=== PATIENT | female | born 1955 | race African-American/Black ===

== ENCOUNTER 2016-05-12 11:24 | Emergency (ER) | payer OTHER ==
[2016-05-12] MEDS ORDERED: Lidocaine 2% VISCOUS* 15 ML UDC PO ONE (12:06)
[2016-05-12 13:16] VITALS: BP 133/83
--- NOTE | 2016-05-13 08:07 | ED ---
Eugene Mckeon Adam, scribed for Darien Ribera MD on 05/12/16 at 1224 . Throat Pain/Nasal Congestion - HPI Summary HPI Summary: 60 year old female arrived to [facility] complaining of a foreign object (mint) stuck in her throat this morning. She has since been able to keep down fluids and medications, and reports a general discomfort in her throat. She has not experienced something like this before, and has not previously been scoped. She is a former smoker, and regularly sees Dr. Pichardo (GI) for gastritis. - History of Current Complaint Chief Complaint: EDForeignBodyEsophag Time Seen by Provider: 05/12/16 11:57 Hx Obtained From: Patient Onset/Duration: Still Present Severity: Moderate Cough: None - Allergies/Home Medications Allergies/Adverse Reactions: Allergies Allergy/AdvReac Type Severity Reaction Status Date / Time Sulfa Antibiotics Allergy Vomiting Verified 02/27/16 12:44 ENVIRONMENTAL Allergy SINUS Uncoded 02/27/16 12:44 SYMPTOMS Home Medications: Home Medications QUEtiapine TAB* [SEROquel TAB*] 50 mg PO BEDTIME 05/12/16 [History Confirmed ] celeCOXIB CAP* [CeleBREX CAP*] 100 mg PO BID 05/12/16 [History Confirmed ] PMH/Surg Hx/FS Hx/Imm Hx Endocrine/Hematology History: Reports: Hx Anemia Denies: Hx Diabetes Cardiovascular History: Reports: Hx Angina Denies: Hx Congestive Heart Failure, Hx Coronary Artery Disease, Hx Hypercholesterolemia, Hx Hypertension, Hx Myocardial Infarction, Hx Pacemaker/ ICD, Hx Valvular Heart Disease Respiratory History: Denies: Hx Asthma, Hx Chronic Obstructive Pulmonary Disease (COPD) GI History: Reports: Hx Gastroesophageal Reflux Disease, Hx Ulcer, Other GI Disorders - GASTRITIS- TAKES MAALOX FOR GASTRITIS History: Denies: Hx Renal Disease Musculoskeletal History: Reports: Hx Arthritis - HANDS AND FEET Sensory History: Reports: Hx Contacts or Glasses - GLASSES Denies: Hx Hearing Aid Opthamlomology History: Reports: Hx Contacts or Glasses - GLASSES Psychiatric History: Reports: Hx Anxiety - NERVOUS AT TIMES, Hx Depression, Hx Schizophrenia Denies: Hx Eating Disorder, Hx Panic Disorder - Cancer History Cancer Type, Location and Year: PATRICIO FOSTER CONCERNED BUT BIOPSY NEGATIVE,PER PT. Hx Chemotherapy: No Hx Radiation Therapy: No - Surgical History Surgery Procedure, Year, and Place: biopsy on breast-DR. DIAZ'S OFFICE, D&C- [facility] [place] Hx Anesthesia Reactions: No - Immunization History Date of Tetanus Vaccine: unknown Date of Influenza Vaccine: unknown Infectious Disease History: Denies: History Other Infectious Disease, Traveled Outside the [place] in Last 30 Days - Family History Known Family History: Positive: Seizure Disorder, Other - Sister has CA. Family History: Bipolar, schizophrenia, depression - Social History Alcohol Use: None Hx Substance Use: No Substance Use Type: Reports: None Hx Tobacco Use: No Smoking Status (MU): Former Smoker Amount Used/How Often: 4-5 CIGARETTES PER DAY X UNKNOWN AMOUNT OF YEARS Have You Smoked in the Last Year: No Review of Systems Negative: Fever, Chills Negative: Erythema Positive: Other - discomfort in throat due to foreign object. Negative: Sore Throat Negative: Chest Pain Negative: Shortness Of Breath, Cough Negative: Abdominal Pain, Vomiting, Nausea Negative: dysuria, hematuria Negative: Rash Neurological: Other - no dizziness All Other Systems Reviewed And Are Negative: Yes Physical Exam - Summary Physical Exam Summary: Constitutional: Well-developed, Well-nourished, Alert. (-) Distressed Skin: Warm, Dry HENT: Normocephalic; Atraumatic Eyes: Conjunctiva normal Neck: Musculoskeletal ROM normal neck. (-) JVD, (-) Stridor, (-) Tracheal deviation Cardio: Rhythm regular, rate normal, Heart sounds normal; Intact distal pulses; The pedal pulses are 2+ and symmetric. Radial pulses are 2+ and symmetric. (-) Murmur Pulmonary/Chest wall: Effort normal. (-) Respiratory distress, (-) Wheezes, (-) Rales Abd: Soft, (-) Tenderness, (-) Distension, (-) Guarding, (-) Rebound Musculoskeletal: (-) Edema Lymph: (-) Cervical adenopathy Neuro: Alert, Oriented x3 Psych: Mood and affect Normal Triage Information Reviewed: Yes Vital Signs On Initial Exam: Initial Vitals Temp Pulse Resp BP Pulse Ox 98.6 F 95 18 150/83 99 05/12/16 11:25 05/12/16 11:25 05/12/16 11:25 05/12/16 11:25 05/12/16 11:25 Vital Signs Reviewed: Yes Diagnostics - Vital Signs Vital Signs Temp Pulse Resp BP Pulse Ox 05/12/16 11:25 98.6 F 95 18 150/83 99 - Laboratory Lab Statement: Any lab studies that have been ordered have been reviewed, and results considered in the medical decision making process. Re-Evaluation - Re-Evaluation First Eval Re-Evaluation Time: 12:30 - Pt tolerated PO intake. Change: Improved EENT Course/Dx - Diagnoses Provider Diagnoses: Choking episode Discharge - Discharge Plan Condition: Stable Disposition: HOME Patient Education Materials: Esophageal Foreign Body (ED) Referrals: Jose Abarca MD [Medical Doctor] - Additional Instructions: Follow up with Dr. Abarca (Gastro) in 2 days. The documentation as recorded by the Eugene mueller Adam accurately reflects the service I personally performed and the decisions made by , Darien Ribera MD.
== END 2016-05-12 13:14 | disposition home or self-care (01) ==
LOC: ED 11:24
DX: R09.89 Other specified symptoms and signs involving the circulatory and respiratory systems (principal); Z87.891 Personal history of nicotine dependence; Z88.2 Allergy status to sulfonamides; D64.9 Anemia, unspecified; K21.9 Gastro-esophageal reflux disease without esophagitis
CPT/HCPCS: 99282

== ENCOUNTER 2016-08-17 12:04 | Emergency (ER) | payer OTHER ==
[2016-08-17 13:42] LABS: Hematocrit 38 % (35-47); Hemoglobin 11.6 g/dl (12.0-16.0); Mean Corpuscular HGB Conc 31 g/dl (31-36); Mean Corpuscular Hemoglobin 22 pg (27-31); Mean Platelet Volume 9 um3 (7.4-10.4); Red Cell Distribution Width 16 % (10.5-15); White Blood Count 6.3 10^3/ul (3.5-10.8)
[2016-08-17 13:43] LABS: Comments Flag Yes; Mean Corpuscular Volume 71 fL (80-97)
[2016-08-17 13:54] LABS: Urine Bilirubin Negative (Negative); Urine Glucose Negative (Negative); Urine Nitrite Negative (Negative)
[2016-08-17 13:57] LABS: BUN/Creatinine Ratio 10.3 (8-20); Calcium 9.5 mg/dL (8.6-10.3); EGFR African American 96.2 (>60); EGFR Non-African American 74.8 (>60); Potassium 4.1 mmol/L (3.5-5.0); Total Bilirubin 0.3 mg/dL (0.2-1.0)
[2016-08-17 14:25] LABS: Benzodiazepine Urine Screen None Detected (None Detect)
[2016-08-17 15:31] VITALS: BP 140/74
--- NOTE | 2016-08-17 18:18 | ED ---
I, Oh,Soohyun, scribed for Sal David MD on 08/17/16 at 1248 . Psychiatric Complaint - HPI Summary HPI Summary: This 61 y/o female presents to ED via [facility] from [place] [facility] for "feeling out of it" since today. 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 She attribute recent start of Klonopin as the reason for her chief complaint. Positive diffuse DOMÍNGUEZ and unspecified "trouble with urination". Good appetite. PMHx includes anxiety/depression, PUD, and insomnia. No known HTN in PMHx. Pt denies any recent EtOH consumption. - History Of Current Complaint Chief Complaint: EDGeneral Time Seen by Provider: 08/17/16 12:40 Hx Obtained From: Patient, Medical Records ?: No Onset/Duration: Sudden Onset Timing: Constant - Allergies/Home Medications Allergies/Adverse Reactions: Allergies Allergy/AdvReac Type Severity Reaction Status Date / Time Sulfa Antibiotics Allergy Vomiting Verified 02/27/16 12:44 ENVIRONMENTAL Allergy SINUS Uncoded 02/27/16 12:44 SYMPTOMS PMH/Surg Hx/FS Hx/Imm Hx Endocrine/Hematology History: Reports: Hx Anemia Denies: Hx Diabetes Cardiovascular History: Reports: Hx Angina Denies: Hx Congestive Heart Failure, Hx Coronary Artery Disease, Hx Hypercholesterolemia, Hx Hypertension, Hx Myocardial Infarction, Hx Pacemaker/ ICD, Hx Valvular Heart Disease Respiratory History: Denies: Hx Asthma, Hx Chronic Obstructive Pulmonary Disease (COPD) GI History: Reports: Hx Gastroesophageal Reflux Disease, Hx Ulcer, Other GI Disorders - GASTRITIS- TAKES MAALOX FOR GASTRITIS History: Denies: Hx Renal Disease Musculoskeletal History: Reports: Hx Arthritis - HANDS AND FEET Sensory History: Reports: Hx Contacts or Glasses - GLASSES Denies: Hx Hearing Aid Opthamlomology History: Reports: Hx Contacts or Glasses - GLASSES Psychiatric History: Reports: Hx Anxiety - NERVOUS AT TIMES, Hx Depression, Hx Schizophrenia Denies: Hx Eating Disorder, Hx Panic Disorder - Cancer History Cancer Type, Location and Year: PATRICIO DIAZ CONCERNED BUT BIOPSY NEGATIVE,PER PT. Hx Chemotherapy: No Hx Radiation Therapy: No - Surgical History Surgery Procedure, Year, and Place: biopsy on breast-DR. DIAZ'S OFFICE, D&C- [facility] [place] Hx Anesthesia Reactions: No - Immunization History Date of Tetanus Vaccine: unknown Date of Influenza Vaccine: unknown Infectious Disease History: Denies: History Other Infectious Disease, Traveled Outside the US in Last 30 Days - Family History Known Family History: Positive: Seizure Disorder, Other - Sister has CA. Family History: Bipolar, schizophrenia, depression - Social History Alcohol Use: None Hx Substance Use: No Substance Use Type: Reports: None Hx Tobacco Use: No Smoking Status (MU): Former Smoker Amount Used/How Often: 4-5 CIGARETTES PER DAY X UNKNOWN AMOUNT OF YEARS Have You Smoked in the Last Year: No Review of Systems Positive: Other - "feeling out of it". Negative: Fever Negative: Other - te Positive: dysuria - unspecified "trouble with urination" Positive: Headache - diffuse All Other Systems Reviewed And Are Negative: Yes Physical Exam - Summary Physical Exam Summary: The patient is well-nourished in no acute distress and in no acute pain. The skin is warm and dry and skin color reflects adequate perfusion. HEENT: The head is normocephalic and atraumatic. The pupils are equal and reactive. The conjunctivae are clear and without drainage. Nares are patent and without drainage. Mouth reveals moist mucous membranes and the throat is without erythema and exudate. The external ears are intact. The ear canals are patent and without drainage. The tympanic membranes are intact. Neck is supple with full range of motion and non-tender. There are no carotid bruits. There is no neck vein distension. Respiratory: Chest is non-tender. Lungs are clear to auscultation and breath sounds are symmetrical and equal. Cardiovascular: Hear is regular rate and rhythm. There is no murmur or rub auscultated. There is no peripheral edema and pulses are symmetrical and equal. Abdomen: The abdomen is soft and non-tender. There are normal bowel sounds heard in all four quadrants and there is no organomegaly palpated. Good bowel sound. Musculoskeletal: There is no back pain noted. Extremities are non-tender with full range of motion. There is good capillary refill. There is no peripheral edema or calf tenderness elicited. Neurological: Patient is alert and oriented to person, place and time. The patient has symmetrical motor strength in all four extremities. Cranial nerves are grossly intact. Deep tendon reflexes are symmetrical and equal in all four extremities. Psychiatric: The patient has an appropriate affect and does not exhibit any anxiety or depression. Triage Information Reviewed: Yes Vital Signs On Initial Exam: Initial Vitals Temp Pulse Resp BP Pulse Ox 97.7 F 84 15 155/83 100 08/17/16 12:10 08/17/16 12:10 08/17/16 12:10 08/17/16 12:10 08/17/16 12:10 Vital Signs Reviewed: Yes - [place] Coma Scale Coma Scale Total: 15 Diagnostics - Vital Signs Vital Signs Temp Pulse Resp BP Pulse Ox 08/17/16 12:10 97.7 F 84 15 155/83 100 - Laboratory Lab Results: Lab Results 08/17/16 08/17/16 08/17/16 Range/Units 13:25 13:25 13:25 WBC 6.3 (3.5-10.8) 10^3/ul RBC 5.30 (4.0-5.4) 10^6/ul Hgb 11.6 L (12.0-16.0) g/dl Hct 38 (35-47) % MCV 71 L (80-97) fL MCH 22 L (27-31) pg MCHC 31 (31-36) g/dl RDW 16 H (10.5-15) % Plt Count 225 (150-450) 10^3/ul MPV 9 (7.4-10.4) um3 Neut % (Auto) 72.2 (38-83) % Lymph % (Auto) 20.5 L (25-47) % Dougherty % (Auto) 3.8 (1-9) % Eos % (Auto) 2.0 (0-6) % Baso % (Auto) 1.5 (0-2) % Absolute Neuts (auto) 4.5 (1.5-7.7) 10^3/ul Absolute Lymphs (auto) 1.3 (1.0-4.8) 10^3/ul Absolute Monos (auto) 0.2 (0-0.8) 10^3/ul Absolute Eos (auto) 0.1 (0-0.6) 10^3/ul Absolute Basos (auto) 0.1 (0-0.2) 10^3/ul Absolute Nucleated RBC 0.01 10^3/ul Nucleated RBC % 0.1 Sodium 140 (133-145) mmol/L Potassium 4.1 (3.5-5.0) mmol/L Chloride 104 (101-111) mmol/L Carbon Dioxide 30 (22-32) mmol/L Anion Gap 6 (2-11) mmol/L BUN 8 (6-24) mg/dL Creatinine 0.78 (0.51-0.95) mg/dL Est GFR ( Amer) 96.2 (>60) Est GFR (Non-Af Amer) 74.8 (>60) BUN/Creatinine Ratio 10.3 (8-20) Glucose 89 (70-100) mg/dL Lactic Acid (0.5-2.0) mmol/L Calcium 9.5 (8.6-10.3) mg/dL Total Bilirubin 0.30 (0.2-1.0) mg/dL AST 12 L (13-39) U/L ALT 13 (7-52) U/L Alkaline Phosphatase 98 (34-104) U/L Troponin I 0.00 (<0.04) ng/mL Total Protein 8.0 (6.4-8.9) g/dL Albumin 4.0 (3.2-5.2) g/dL Globulin 4.0 (2-4) g/dL Albumin/Globulin Ratio 1.0 (1-3) Urine Color Straw Urine Appearance Clear Urine pH 8.0 (5-9) Ur Specific [place] 1.005 L (1.010-1.030) Urine Protein Negative (Negative) Urine Ketones Negative (Negative) Urine Blood Negative (Negative) Urine Nitrate Negative (Negative) Urine Bilirubin Negative (Negative) Urine Urobilinogen Negative (Negative) Ur Leukocyte Esterase Negative (Negative) Urine Glucose Negative (Negative) Urine Opiates Screen (None Detect) Ur Barbiturates Screen (None Detect) Ur Phencyclidine Scrn (None Detect) Ur Amphetamines Screen (None Detect) U Benzodiazepines Scrn (None Detect) Urine Cocaine Screen (None Detect) U Cannabinoids Screen (None Detect) 08/17/16 08/17/16 Range/Units 13:25 13:25 WBC (3.5-10.8) 10^3/ul RBC (4.0-5.4) 10^6/ul Hgb (12.0-16.0) g/dl Hct (35-47) % MCV (80-97) fL MCH (27-31) pg MCHC (31-36) g/dl RDW (10.5-15) % Plt Count (150-450) 10^3/ul MPV (7.4-10.4) um3 Neut % (Auto) (38-83) % Lymph % (Auto) (25-47) % Dougherty % (Auto) (1-9) % Eos % (Auto) (0-6) % Baso % (Auto) (0-2) % Absolute Neuts (auto) (1.5-7.7) 10^3/ul Absolute Lymphs (auto) (1.0-4.8) 10^3/ul Absolute Monos (auto) (0-0.8) 10^3/ul Absolute Eos (auto) (0-0.6) 10^3/ul Absolute Basos (auto) (0-0.2) 10^3/ul Absolute Nucleated RBC 10^3/ul Nucleated RBC % Sodium (133-145) mmol/L Potassium (3.5-5.0) mmol/L Chloride (101-111) mmol/L Carbon Dioxide (22-32) mmol/L Anion Gap (2-11) mmol/L BUN (6-24) mg/dL Creatinine (0.51-0.95) mg/dL Est GFR ( Amer) (>60) Est GFR (Non-Af Amer) (>60) BUN/Creatinine Ratio (8-20) Glucose (70-100) mg/dL Lactic Acid 0.8 (0.5-2.0) mmol/L Calcium (8.6-10.3) mg/dL Total Bilirubin (0.2-1.0) mg/dL AST (13-39) U/L ALT (7-52) U/L Alkaline Phosphatase (34-104) U/L Troponin I (<0.04) ng/mL Total Protein (6.4-8.9) g/dL Albumin (3.2-5.2) g/dL Globulin (2-4) g/dL Albumin/Globulin Ratio (1-3) Urine Color Urine Appearance Urine pH (5-9) Ur Specific [place] (1.010-1.030) Urine Protein (Negative) Urine Ketones (Negative) Urine Blood (Negative) Urine Nitrate (Negative) Urine Bilirubin (Negative) Urine Urobilinogen (Negative) Ur Leukocyte Esterase (Negative) Urine Glucose (Negative) Urine Opiates Screen None detected (None Detect) Ur Barbiturates Screen None detected (None Detect) Ur Phencyclidine Scrn None detected (None Detect) Ur Amphetamines Screen None detected (None Detect) U Benzodiazepines Scrn None detected (None Detect) Urine Cocaine Screen None detected (None Detect) U Cannabinoids Screen None detected (None Detect) Result Diagrams: 08/17/16 13:25 08/17/16 13:25 Lab Statement: Any lab studies that have been ordered have been reviewed, and results considered in the medical decision making process. - EKG 1328 Cardiac Rate: NL - 67 bpm EKG Rhythm: Sinus Rhythm Course/Dx - Differential Dx/Clinical Impression Provider Diagnosis: Elevated blood pressure reading Discharge - Discharge Plan Condition: Stable Disposition: HOME Patient Education Materials: Hypertension (ED) Referrals: [facility] [place] PHYSICIAN REFERRAL [Outside] - 2 Days The documentation as recorded by the Issa mueller Soohyun accurately reflects the service I personally performed and the decisions made by Frankie mg Drew, MD.
== END 2016-08-17 15:30 | disposition home or self-care (01) ==
LOC: ED 12:04
DX: R03.0 Elevated blood-pressure reading, without diagnosis of hypertension (principal); R30.0 Dysuria; R51 Headache; Z87.891 Personal history of nicotine dependence
CPT/HCPCS: 36415; 80053; 80307; 81003; 83605; 84484; 85025; 93005; 99282

== ENCOUNTER 2017-05-17 08:58 | Emergency (ER) | payer OTHER ==
[2017-05-17] MEDS ORDERED: Docusate CAP* 100 MG PO ONE (09:19)
[2017-05-17] MEDS ORDERED: Hydrocortisone SUPP* 25 MG SUPP (2.5%) PR ONE (09:20)
[2017-05-17 09:44] LABS: Hematocrit 36 % (35-47); Mean Corpuscular HGB Conc 31 g/dl (31-36); Mean Corpuscular Hemoglobin 22 pg (27-31); Mean Corpuscular Volume 71 fL (80-97); Mean Platelet Volume 9 um3 (7.4-10.4); Platelet Count 235 10^3/ul (150-450); Red Blood Count 5.04 10^6/ul (4.0-5.4); Red Cell Distribution Width 15 % (10.5-15); White Blood Count 4.8 10^3/ul (3.5-10.8)
[2017-05-17 09:55] LABS: EGFR Non-African American 74.8 (>60)
[2017-05-17 10:00] LABS: ABS Basophils 0 10^3/ul (0-0.2); ABS Eosinophils 0.2 10^3/ul (0-0.6); ABS Lymphocytes 1.2 10^3/ul (1.0-4.8); ABS Monocytes 0.3 10^3/ul (0-0.8); ABS Neutrophils 3.1 10^3/ul (1.5-7.7); ABS Nucleated RBC 0 10^3/ul; Eosinophil % 4.9 % (0-6); Lymphocyte % 25.3 % (25-47); Nucleated Red Blood Cells % 0.1
[2017-05-17 10:04] LABS: Urine Appearance Clear; Urine Blood Negative (Negative); Urine Color Yellow; Urine Ketones Negative (Negative); Urine Protein Negative (Negative); Urine Specific Gravity 1.002 (1.010-1.030); Urine Urobilinogen Negative (Negative)
[2017-05-17] MEDS ORDERED: Hydrocortisone 1% CREAM* 30 GM TUBE TOPICAL ONE (11:34)
[2017-05-17 12:16] VITALS: BP 157/85
--- NOTE | 2017-05-17 20:51 | ED ---
Joshua Mckeon Natalie, scribed for Veronika Knight MD on 05/17/17 at 0937 . GI/ HPI - HPI Summary HPI Summary: The patient is a 61 y/o F BIBA to ED from [place] c/o pain from hemorrhoids for a few days. She has been constipated since this morning. She usually uses a cream on the inside of rectum, but didnt have an updated prescription available. The pain is rated 8/10. She has not been vomiting or had a fever, but has diffuse abd pain and states her whole body is itchy. When asked, the patient denies SI or HI, and she is not hearing voices. She has FHx of cancer. No surgical history. - History of Current Complaint Chief Complaint: EDRashSkinAbscess Stated Complaint: RASH Hx Obtained From: Patient Onset/Duration: Started Hours Ago - starting this morning, Still Present Timing: Constant Severity: Moderate Current Severity: Moderate Pain Intensity: 8 Location of Pain: Diffuse - abd, Rectal Associated Signs and Symptoms: Positive: Rectal Pain, External Hemorrhoid, Constipation, Abdominal Pain. Negative: Vomiting, Fever - Additional Pertinent History Primary Care Physician: [id number] - Allergy/Home Medications Allergies/Adverse Reactions: Allergies Allergy/AdvReac Type Severity Reaction Status Date / Time Sulfa (Sulfonamide Allergy Vomiting Verified 05/17/17 11:12 Antibiotics) ENVIRONMENTAL Allergy SINUS Uncoded 02/27/16 12:44 SYMPTOMS Home Medications: Home Medications Acetaminophen [Acetaminophen ER] 650 mg PO Q8H PRN 05/17/17 [History Confirmed 05/17/17] Acetaminophen [Acetaminophen Extra Strength] 1,000 mg PO Q4H PRN 05/17/17 [ History Confirmed 05/17/17] Gabapentin CAP(*) [Neurontin 100 mg CAP(*)] 100 mg PO BID 05/17/17 [History Confirmed 05/17/17] Ibuprofen TAB* [Motrin TAB* 600 MG] 600 mg PO Q6H PRN 05/17/17 [History Confirmed 05/17/17] Lactulose* 15 ml PO DAILY PRN 05/17/17 [History Confirmed 05/17/17] Loperamide CAP* [Imodium CAP*] 2 mg PO Q4H PRN 05/17/17 [History Confirmed 05/17] Lurasidone(*) [Latuda] 40 mg PO BEDTIME 05/17/17 [History Confirmed 05/17/17] Mag Hydrox/Aluminum Hyd/Simeth [Maalox Maximum Strength Susp] 10 ml PO Q4H PRN 05/17/17 [History Confirmed 05/17/17] clonazePAM TAB(*) [KlonoPIN TAB(*)] 0.5 mg PO .AFTER LUNCH 05/17/17 [History Confirmed 05/17/17] hydrOXYzine HCL TAB* [Atarax 25 MG TAB*] 25 mg PO BEDTIME PRN 05/17/17 [History Confirmed 05/17/17] hydrOXYzine HCL TAB* [Atarax 25 MG TAB*] 25 mg PO QPM 05/17/17 [History Confirmed 05/17/17] PMH/Surg Hx/FS Hx/Imm Hx Previously Healthy: No Endocrine/Hematology History: Reports: Hx Anemia Denies: Hx Diabetes Cardiovascular History: Reports: Hx Angina Denies: Hx Congestive Heart Failure, Hx Coronary Artery Disease, Hx Hypercholesterolemia, Hx Hypertension, Hx Myocardial Infarction, Hx Pacemaker/ ICD, Hx Valvular Heart Disease Respiratory History: Denies: Hx Asthma, Hx Chronic Obstructive Pulmonary Disease (COPD) GI History: Reports: Hx Gastroesophageal Reflux Disease, Hx Ulcer, Other GI Disorders - GASTRITIS- TAKES MAALOX FOR GASTRITIS History: Denies: Hx Renal Disease Musculoskeletal History: Reports: Hx Arthritis - HANDS AND FEET Sensory History: Reports: Hx Contacts or Glasses - GLASSES Denies: Hx Hearing Aid Opthamlomology History: Reports: Hx Contacts or Glasses - GLASSES Psychiatric History: Reports: Hx Anxiety - NERVOUS AT TIMES, Hx Depression, Hx Schizophrenia Denies: Hx Eating Disorder, Hx Panic Disorder - Cancer History Cancer Type, Location and Year: PATRICIO DIAZ CONCERNED BUT BIOPSY NEGATIVE,PER PT. Hx Chemotherapy: No Hx Radiation Therapy: No - Surgical History Surgery Procedure, Year, and Place: biopsy on breast-DR. DIAZ'S OFFICE, [place] [facility] [place] Anesthesia Reactions: No - Immunization History Date of Tetanus Vaccine: unknown Date of Influenza Vaccine: unknown Infectious Disease History: No Infectious Disease History: Denies: History Other Infectious Disease, Traveled Outside the [place] in Last 30 Days - Family History Known Family History: Positive: Seizure Disorder, Other - Sister has CA. Family History: Bipolar, schizophrenia, depression - Social History Alcohol Use: None Hx Substance Use: No Substance Use Type: Reports: None Hx Tobacco Use: No Smoking Status (MU): Former Smoker Amount Used/How Often: 4-5 CIGARETTES PER DAY X UNKNOWN AMOUNT OF YEARS Have You Smoked in the Last Year: No Review of Systems Negative: Fever Positive: Abdominal Pain, Other - hemorrhoids. Negative: Vomiting All Other Systems Reviewed And Are Negative: Yes Physical Exam - Summary Physical Exam Summary: Appearance: Ill-appearing, moderate pain distress, Well-nourished, Wearing a wig Skin: Warm, color reflects adequate perfusion, No cellulitis Head: Normal Head/Face inspection Eyes: Conjunctiva clear ENT: Normal inspection Neck: Supple, no nodes, no JVD. Respiratory: Lungs clear, Normal breath sounds, no respiratory distress Cardio: RRR, No murmur, pulses normal, brisk capillary refill Abdomen: soft, nontender Bowel sounds: present Rectal exam: RN Buffy is witness in room while doing rectal exam. Excoriated moist rash between buttocks with external hemorrhoids, not thrombosed, not bleeding. Minimal stool in vault, not impacted, brown soft stool. Musculoskeletal: Strength Intact/ ROM intact. No calf tenderness. No edema. Neuro: Alert, muscle tone normal, facial symmetry, speech normal, sensory/motor intact Psychological: Normal Triage Information Reviewed: Yes Vital Signs On Initial Exam: Initial Vitals Temp Pulse Resp BP Pulse Ox 98.2 F 87 16 149/93 100 05/17/17 09:08 05/17/17 09:08 05/17/17 09:08 05/17/17 09:08 05/17/17 09:08 Vital Signs Reviewed: Yes Diagnostics - Vital Signs Vital Signs Temp Pulse Resp BP Pulse Ox 05/17/17 09:08 98.2 F 87 16 149/93 100 - Laboratory Result Diagrams: 05/17/17 09:30 05/17/17 09:30 Lab Statement: Any lab studies that have been ordered have been reviewed, and results considered in the medical decision making process. Re-Evaluation - Re-Evaluation First Eval Re-Evaluation Time: 11:14 Change: Unchanged Comment: The patient states she is still itching all over. GIGU Course/Dx - Course Course Of Treatment: Pt's medications reviewed during this visit. Allergies noted. In the ED, the patient was given Anusol Hc Supp and hydrocortisone 1% cream. At 11:22, I spoke with charge nurse Leslie and mental health collateral clerk and we established that it is not necessary for the patient to receive a mental health evaluation. The patient also does not need to be admitted. She is dx with hemorrhoids and dermatitis. She will be discharged back to [place]. Pt is agreeable with this plan. - Diagnoses Provider Diagnoses: Keratosis follicularis, Unspecified psychosis, Insomnia, Anxiety disorder, unspecified, Rash, Hemorrhoids, Dermatitis Discharge - Discharge Plan Condition: Stable Disposition: HOME Patient Education Materials: Hemorrhoids (ED), Dermatitis (ED) Referrals: Lorraine Vargas MD [Medical Doctor] - 2 Days Additional Instructions: We gave Anusol Hc Supp and colace 200mg while in the ER. We also gave hydrocortisone 1% cream to the itchy rash in your genital area. RETURN TO THE ER WITH ANY NEW OR WORSENING SYMPTOMS The documentation as recorded by the Joshua mueller Natalie accurately reflects the service I personally performed and the decisions made by me, Veronika Knight MD.
== END 2017-05-17 12:15 | disposition home or self-care (01) ==
LOC: ED 08:58
DX: L11.0 Acquired keratosis follicularis (principal); F29 Unspecified psychosis not due to a substance or known physiological condition; G47.00 Insomnia, unspecified; F41.9 Anxiety disorder, unspecified; R21 Rash and other nonspecific skin eruption; Z87.891 Personal history of nicotine dependence; Z88.2 Allergy status to sulfonamides
CPT/HCPCS: 36415; 80053; 80307; 80320; 80329; 81003; 82272; 82550; 84443; 85025; 99282; A9270-GY; G0480

== ENCOUNTER → 2018-07-01 10:55 | Emergency (ER) | payer OTHER ==
[~2018-07-01 10:55] MED LIST: HYDROcodone/ACETAMIN 5-325 MG* 1 TAB PO ONE; Ketorolac INJ* 30 MG/ML 1 ML VIAL IV PUSH ONE
--- NOTE | 2018-07-01 11:07 | ED ---
HPI Chest Pain - HPI Summary HPI Summary: A 62 y/o female brought in by [facility] ambulance from [place] presents to [facility] with a chief complaint of chest pain today. She describes her pain as a sharp pain. Breathing, movement, and palpation aggravates her pain. Lying down alleviates her pain. She also notes pain radiating to her abdomen. She rates her pain as a 7/10 in severity. She was given Maalox and Tylenol SLEEVE BASTER. - History of Current Complaint Time Seen by Provider: 07/01/18 10:57 Hx Obtained From: Patient, EMS Onset/Duration: Started Hours Ago, Still Present Timing: Constant, Lasting Hours Initial Severity: Severe Current Severity: Severe Pain Intensity: 7 Pain Scale Used: 0-10 Numeric Chest Pain Location: Diffuse Chest Pain Radiates: No Character: Sharp/Stabbing Aggravating Factor(s): Movement, Deep Breaths, Other: - palpation Alleviating Factor(s): Rest Associated Signs and Symptoms: Positive: Abdominal Pain. Negative: Fever - Additional Pertinent History Primary Care Physician: FABIOLA - Allergy/Home Medications Allergies/Adverse Reactions: Allergies Allergy/AdvReac Type Severity Reaction Status Date / Time Sulfa (Sulfonamide Allergy Vomiting Verified 07/01/18 12:45 Antibiotics) ENVIRONMENTAL Allergy SINUS Uncoded 07/01/18 12:45 SYMPTOMS Home Medications: Home Medications Acetaminophen TAB* [Tylenol TAB*] 650 mg PO Q4H PRN 07/01/18 [History Confirmed 07/01/18] Multivit-Min/Iron/Folic/Lutein [Centrum Silver Women Tablet] 1 tab PO DAILY [History Confirmed 07/01/18] PMH/Surg Hx/FS Hx/Imm Hx Endocrine/Hematology History: Reports: Hx Anemia Denies: Hx Diabetes Cardiovascular History: Reports: Hx Angina Denies: Hx Congestive Heart Failure, Hx Coronary Artery Disease, Hx Hypercholesterolemia, Hx Hypertension, Hx Myocardial Infarction, Hx Pacemaker/ ICD, Hx Valvular Heart Disease Respiratory History: Denies: Hx Asthma, Hx Chronic Obstructive Pulmonary Disease (COPD) GI History: Reports: Hx Gastroesophageal Reflux Disease, Hx Ulcer, Other GI Disorders - GASTRITIS- TAKES MAALOX FOR GASTRITIS History: Denies: Hx Renal Disease Musculoskeletal History: Reports: Hx Arthritis - HANDS AND FEET Sensory History: Reports: Hx Contacts or Glasses - GLASSES Denies: Hx Hearing Aid Opthamlomology History: Reports: Hx Contacts or Glasses - GLASSES Psychiatric History: Reports: Hx Anxiety, Hx Depression, Hx Schizophrenia Denies: Hx Eating Disorder, Hx Panic Disorder - Cancer History Cancer Type, Location and Year: PATRICIO DIAZ CONCERNED BUT BIOPSY NEGATIVE,PER PT. Hx Chemotherapy: No Hx Radiation Therapy: No - Surgical History Surgery Procedure, Year, and Place: biopsy on breast-DR. DIAZ'S OFFICE, D&C- [facility] – [place] Hx Anesthesia Reactions: No - Immunization History Date of Tetanus Vaccine: unknown Date of Influenza Vaccine: unknown Infectious Disease History: Denies: History Other Infectious Disease - Family History Known Family History: Positive: Seizure Disorder, Other - Sister has CA. Family History: Bipolar, schizophrenia, depression - Social History Alcohol Use: None Hx Substance Use: No Substance Use Type: Reports: None Hx Tobacco Use: No Smoking Status (MU): Former Smoker Amount Used/How Often: 4-5 CIGARETTES PER DAY X UNKNOWN AMOUNT OF YEARS Have You Smoked in the Last Year: No Review of Systems Negative: Fever Positive: Chest Pain Positive: Abdominal Pain All Other Systems Reviewed And Are Negative: Yes Physical Exam - Summary Physical Exam Summary: Appearance: The patient is well-nourished in no acute distress and in no acute pain. Skin: The skin is warm and dry and skin color reflects adequate perfusion. HEENT: The head is normocephalic and atraumatic. The pupils are equal and reactive. The conjunctivae are clear and without drainage. Nares are patent and without drainage. Mouth reveals moist mucous membranes and the throat is without erythema and exudate. The external ears are intact. The ear canals are patent and without drainage. The tympanic membranes are intact. Neck: The neck is supple with full range of motion and non-tender. There are no carotid bruits. There is no neck vein distension. Respiratory: Tender anterior chest wall and mid sternum. Lungs are clear to auscultation and breath sounds are symmetrical and equal. Cardiovascular: Heart is regular rate and rhythm. There is no murmur or rub auscultated. There is no peripheral edema and pulses are symmetrical and equal. Abdomen: The abdomen is soft and non-tender. There are normal bowel sounds heard in all four quadrants and there is no organomegaly palpated. Musculoskeletal: There is no back tenderness noted. Extremities are non-tender with full range of motion. There is good capillary refill. There is no peripheral edema or calf tenderness elicited. Neurological: Patient is alert and oriented to person, place and time. The patient has symmetrical motor strength in all four extremities. Cranial nerves are grossly intact. Deep tendon reflexes are symmetrical and equal in all four extremities. Psychiatric: The patient has an appropriate affect and does not exhibit any anxiety or depression. Triage Information Reviewed: Yes Vital Signs Reviewed: Yes Diagnostics - Laboratory Result Diagrams: 07/01/18 11:26 07/01/18 11:26 Lab Statement: Any lab studies that have been ordered have been reviewed, and results considered in the medical decision making process. - Radiology CXR Radiology Interpretation Completed By: Radiologist Summary of Radiographic Findings: NO ACTIVE CARDIOPULMONARY DISEASE IS NOTED. ED physician has reviewed this imaging report. - EKG 11:00 Cardiac Rate: NL - 78 bpm EKG Rhythm: Sinus Rhythm Summary of EKG Findings: Normal sinus rhythm at 78 bpm, normal ST, no ectopy, no STEMI Re-Evaluation - Re-Evaluation First Eval Re-Evaluation Time: 17:37 Change: Improved Comment: Patient is feeling better and ready for discharge. Chest Pain Course/Dx - Course Course Of Treatment: Ms. Rao presented with a chief complaint of chest pain which is been going on for at least a day. It hurts to breathe or to move and as it turns out to palpate her sternal area. She was nontoxic in appearance with stable vitals on arrival. EKG chest x-ray and labs including a delayed troponin are all within normal limits and she improved some with ketorolac and more so with [place]. I will discharge her back to follow-up with her PCP; I don' t think anything dangerous is happening at this point. - Diagnoses Provider Diagnoses: Chest pain Discharge - Sign-Out/Discharge Documenting (check all that apply): Patient Departure - DC Patient Received Moderate/Deep Sedation with Procedure: No - Discharge Plan Condition: Stable Disposition: HOME Patient Education Materials: Chest Pain (DC) Referrals: Fatou Coker NP [Primary Care Provider] - (2-3 days) Additional Instructions: Return to the ED if you experience any new or worsening symptoms. - Billing Disposition and Condition Condition: STABLE Disposition: Home - Attestation Statements Document Initiated by Scribe: Yes Documenting Scribe: Pee Vo Provider For Whom Scribe is Documenting (Include Credential): Chalino Trejo MD Scribe Attestation: I, Pee Vo, scribed for Chalino Trejo MD on 07/01/18 at 1742. Scribe Documentation Reviewed: Yes Provider Attestation: The documentation as recorded by the scribe, Pee Vo accurately reflects the service I personally performed and the decisions made by me, Chalino Trejo MD Status of Scribe Document: Viewed
[2018-07-01 11:42] LABS: ABS Basophils 0 10^3/ul (0-0.2); ABS Eosinophils 0.3 10^3/ul (0-0.6); ABS Lymphocytes 1.9 10^3/ul (1.0-4.8); ABS Monocytes 0.4 10^3/ul (0-0.8); ABS Neutrophils 3.4 10^3/ul (1.5-7.7); ABS Nucleated RBC 0 10^3/ul; Eosinophil % 5.2 %; Hematocrit 38 % (33-41); Hemoglobin 11.8 g/dL (12.0-16.0); Lymphocyte % 31.7 %; Mean Corpuscular HGB Conc 31 g/dL (31-36); Mean Corpuscular Hemoglobin 22 pg (27-31); Mean Corpuscular Volume 70 fL (80-97); Mean Platelet Volume 9.1 fL (7.4-10.4); Nucleated Red Blood Cells % 0.1; Platelet Count 262 10^3/uL (150-450); Red Blood Count 5.36 10^6 /uL (3.70-4.87); Red Cell Distribution Width 16 % (10.5-15)
[2018-07-01 11:58] LABS: BUN/Creatinine Ratio 14.1 (8-20); Calcium 9.4 mg/dL (8.6-10.3); EGFR African American 81.7 (>60); EGFR Non-African American 67.5 (>60); Globulin 3.9 g/dL (2-4); Potassium 4.1 mmol/L (3.5-5.0); Total Bilirubin 0.3 mg/dL (0.2-1.0); Total Protein 7.9 g/dL (6.4-8.9)
[2018-07-01 13:35] LABS: Urine Appearance Clear; Urine Bacteria Absent (Absent); Urine Bilirubin Negative (Negative); Urine Blood Negative (Negative); Urine Color Straw; Urine Glucose Negative (Negative); Urine Ketones Negative (Negative); Urine Nitrite Negative (Negative); Urine Protein Negative (Negative); Urine Red Blood Cell Absent (Absent); Urine Specific Gravity 1.004 (1.010-1.030); Urine Squamous Epithelial Cell Present (Absent); Urine Urobilinogen Negative (Negative); Urine White Blood Cell Trace(0-5/hpf) (Absent)
[2018-07-01 17:29] VITALS: BP 145/87
== END | disposition home or self-care (01) ==
LOC: ED 10:55
DX: R07.9 Chest pain, unspecified (principal); D64.9 Anemia, unspecified; K21.9 Gastro-esophageal reflux disease without esophagitis; M19.90 Unspecified osteoarthritis, unspecified site; Z88.2 Allergy status to sulfonamides; Z87.891 Personal history of nicotine dependence
CPT/HCPCS: 36415; 71045; 80053; 81003; 81015; 83605; 84484; 85025; 85379; 87086; 93005; 96374; 99284; J1885

== ENCOUNTER 2018-07-03 13:12 | Emergency (ER) | payer OTHER ==
--- NOTE | 2018-07-03 13:22 | ED ---
HPI Chest Pain - HPI Summary HPI Summary: This patient is a 62 year old F brought in by EMS to [facility] from [place] with a chief complaint of sharp sternal chest discomfort with cough for the past couple of days that worsens over the left lower ribs with deep breaths that worsened at noon today. Additionally reports back pain. Pain rated 8/10 in severity. Symptoms aggravated by deep breaths. EMS reports reproducible substernal chest pain and post nasal drip wit SpO2 98%. EMS additionally reports patient was here 07/01/18 with similar sharp chest pain symptoms. All labs from that visit reviewed and are WNL. D-dimer was negative with 0.00 troponin. CXR was normal. No flu swab performed. Patient reports having influenza shot this year. Patient denies history of blood clots Vital signs while in room: HR 88 bpm, BP 136/88, O2 sat 100% Regular medications include Remeron and Latuda. Morning medications were taken. - History of Current Complaint Hx Obtained From: Patient, EMS Onset/Duration: Started Days Ago Timing: Intermittent Current Severity: Severe Pain Intensity: 8 Pain Scale Used: 0-10 Numeric Chest Pain Location: Mid Sternal Chest Pain Radiates: Yes Chest Pain Radiates To:: Back - ribs Character: Sharp/Stabbing Aggravating Factor(s): Deep Breaths Alleviating Factor(s): Nothing Associated Signs and Symptoms: Positive: Chest Pain, Nasal Congestion - Additional Pertinent History Primary Care Physician: FABIOLA - Allergy/Home Medications Allergies/Adverse Reactions: Allergies Allergy/AdvReac Type Severity Reaction Status Date / Time Sulfa (Sulfonamide Allergy Vomiting Verified 07/01/18 12:45 Antibiotics) ENVIRONMENTAL Allergy SINUS Uncoded 07/01/18 12:45 SYMPTOMS PMH/Surg Hx/FS Hx/Imm Hx Endocrine/Hematology History: Reports: Hx Anemia Denies: Hx Diabetes Cardiovascular History: Reports: Hx Angina Denies: Hx Congestive Heart Failure, Hx Coronary Artery Disease, Hx Hypercholesterolemia, Hx Hypertension, Hx Myocardial Infarction, Hx Pacemaker/ ICD, Hx Valvular Heart Disease Respiratory History: Denies: Hx Asthma, Hx Chronic Obstructive Pulmonary Disease (COPD) GI History: Reports: Hx Gastroesophageal Reflux Disease, Hx Ulcer, Other GI Disorders - GASTRITIS- TAKES MAALOX FOR GASTRITIS History: Denies: Hx Renal Disease Musculoskeletal History: Reports: Hx Arthritis - HANDS AND FEET Sensory History: Reports: Hx Contacts or Glasses - GLASSES Denies: Hx Hearing Aid Opthamlomology History: Reports: Hx Contacts or Glasses - GLASSES Psychiatric History: Reports: Hx Anxiety, Hx Depression, Hx Schizophrenia Denies: Hx Eating Disorder, Hx Panic Disorder - Cancer History Cancer Type, Location and Year: PATRICIO DIAZ CONCERNED BUT BIOPSY NEGATIVE,PER PT. Hx Chemotherapy: No Hx Radiation Therapy: No - Surgical History Surgery Procedure, Year, and Place: biopsy on breast-DR. DIAZ'S OFFICE[place] [facility] [place] Anesthesia Reactions: No - Immunization History Date of Tetanus Vaccine: unknown Date of Influenza Vaccine: unknown Infectious Disease History: Denies: History Other Infectious Disease - Family History Known Family History: Positive: Seizure Disorder, Other - Sister has CA. Family History: Bipolar, schizophrenia, depression - Social History Alcohol Use: None Hx Substance Use: No Substance Use Type: Reports: None Hx Tobacco Use: No Smoking Status (MU): Former Smoker Amount Used/How Often: 4-5 CIGARETTES PER DAY X UNKNOWN AMOUNT OF YEARS Have You Smoked in the Last Year: No Review of Systems Negative: Fever Positive: Chest Pain Positive: Myalgia - back All Other Systems Reviewed And Are Negative: Yes Physical Exam - Summary Physical Exam Summary: Appearance: Afebrile, Ill-appearing, moderate pain distress, well-nourished, Patient is moaning in discomfort Skin: Warm, color reflects adequate perfusion, dry, Right breast scarring, Lipoma on left upper rib area Head: Normal Head/Face inspection, atraumatic Eyes: Conjunctiva clear ENT: Normal inspection Neck: Supple, no nodes, no JVD Respiratory: no respiratory distress Diminished throughout Cardio: RRR, No murmur, pulses normal, brisk capillary refill Abdomen: Soft, nontender Bowel sounds: Present Musculoskeletal: Strength Intact/ROM intact, no calf tenderness, no edema. Psychological: Normal Neuro: Alert, muscle tone normal, no focal deficit Triage Information Reviewed: Yes Vital Signs Reviewed: Yes Diagnostics - Laboratory Result Diagrams: 07/03/18 13:33 07/03/18 13:33 Lab Statement: Any lab studies that have been ordered have been reviewed, and results considered in the medical decision making process. - Radiology CXR Radiology Interpretation Completed By: Radiologist Summary of Radiographic Findings: NO ACTIVE CARDIOPULMONARY DISEASE IS NOTED. ED Physician has reviewed this report. - EKG 1323 Cardiac Rate: NL - 89 BPM EKG Rhythm: Sinus Rhythm ST Segment: Non-Specific EKG Comparison: Other - 07/01/[address]-T changes V3-V6 Summary of EKG Findings: reveals nml AV/IV CT, Prolonged QTc, and nml axis. No acute changes. Re-Evaluation - Re-Evaluation 1 Re-Evaluation Time: 15:48 Change: Improved - Patient is more comfortable. Sao2 is 99% Patient is given IM Toradol and is feeling much better and agrees to discharge. Chest Pain Course/Dx - Course Course Of Treatment: 62 year old F brought in by EMS to [facility] from [place] c/o sharp sternal chest discomfort with cough for the past couple of days that worsens over the left lower ribs with deep breaths that worsened at noon today. EMS additionally reports patient was here 07/01/18 with similar sharp chest pain symptoms. All labs from that visit reviewed and are WNL. D-dimer was negative with 0.00 troponin. CXR was normal. No flu swab performed then. Patient reports having influenza shot this year. Patient denies history of blood clots. Regular medications include Remeron and Latuda. Morning medications were taken. During this ED visit CXR reveals no active cardiopulmonary disease. Bloodwork reveals REBC 5.47, Hgb 11.9, MCV 71, MCH 22, RDW 16. Influenza swabs are negative. EKG is NSR at 89 BPM with nml AV/IV CT, Prolonged QTc, and nml axis and no acute changes. Patient is given 30mg of Toradol IM with complete relief of pain. Patient will be discharged. Results and plan discussed with patient. - Diagnoses Provider Diagnoses: Chest pain Discharge - Sign-Out/Discharge Documenting (check all that apply): Patient Departure - discharge - Discharge Plan Condition: Stable Disposition: HOME Patient Education Materials: Chest Pain (ED) Referrals: Fatou Coker NP [Primary Care Provider] - 2 Days Additional Instructions: Your tests today did not show any significant abnormalities, and also did not determine the exact cause of your pain, but there is no indication of an emergency condition. You were given toradol 30mg injectable for your pain. Follow up with Fatou Coker in 2-3 days Return to the ER if you have new or worsening symptoms. - Attestation Statements Document Initiated by Scribe: Yes Documenting Scribe: Amy Rascon Provider For Whom Scribe is Documenting (Include Credential): Veronika Knight MD Scribe Attestation: Amy Mckeon, scribed for Veronika Knight MD on 07/03/18 at 1632. Status of Scribe Document: Ready
[2018-07-03 13:46] LABS: Influenza A Molecular NEGATIVE (Negative); Influenza B Molecular NEGATIVE (Negative)
[2018-07-03 13:49] LABS: Activated Partial Thrombo Time 32.9 seconds (26.0-36.3); INR 0.95 (0.77-1.02)
[2018-07-03 13:58] LABS: Albumin 4.1 g/dL (3.2-5.2); Albumin/Globulin Ratio 1.1 (1-3); BUN/Creatinine Ratio 14.8 (8-20); Calcium 9.3 mg/dL (8.6-10.3); EGFR African American 78.5 (>60); EGFR Non-African American 64.9 (>60); Globulin 3.8 g/dL (2-4); Magnesium 2.2 mg/dL (1.9-2.7); Potassium 4.2 mmol/L (3.5-5.0); Total Bilirubin 0.3 mg/dL (0.2-1.0); Total Protein 7.9 g/dL (6.4-8.9)
[2018-07-03 14:03] LABS: CKMB ng/mL 1.1 ng/mL (0.6-6.3)
[2018-07-03 14:34] LABS: ABS Basophils 0 10^3/ul (0-0.2); ABS Eosinophils 0.3 10^3/ul (0-0.6); ABS Lymphocytes 1.8 10^3/ul (1.0-4.8); ABS Monocytes 0.3 10^3/ul (0-0.8); ABS Neutrophils 3.2 10^3/ul (1.5-7.7); ABS Nucleated RBC 0 10^3/ul; Eosinophil % 5.5 %; Hematocrit 39 % (33-41); Hemoglobin 11.9 g/dL (12.0-16.0); Lymphocyte % 31.9 %; Mean Corpuscular HGB Conc 31 g/dL (31-36); Mean Corpuscular Hemoglobin 22 pg (27-31); Mean Corpuscular Volume 71 fL (80-97); Mean Platelet Volume 9.3 fL (7.4-10.4); Nucleated Red Blood Cells % 0.1; Platelet Count 280 10^3/uL (150-450); Red Blood Count 5.47 10^6 /uL (3.70-4.87); Red Cell Distribution Width 16 % (10.5-15); White Blood Count 5.6 10^3/uL (3.5-10.8)
[2018-07-03] MEDS ORDERED: Ketorolac INJ* 30 MG/ML 1 ML VIAL IM ONE (15:41)
[2018-07-03] MEDS ORDERED: Ketorolac INJ* 30 MG/ML 1 ML VIAL ONE (15:43)
[2018-07-03 16:14] VITALS: BP 126/85
== END 2018-07-03 16:15 | disposition home or self-care (01) ==
LOC: ED 13:12
DX: R07.9 Chest pain, unspecified (principal); D64.9 Anemia, unspecified; K21.9 Gastro-esophageal reflux disease without esophagitis; K29.70 Gastritis, unspecified, without bleeding; F20.9 Schizophrenia, unspecified; F41.9 Anxiety disorder, unspecified; Z87.891 Personal history of nicotine dependence
CPT/HCPCS: 36415; 71045; 80053; 82550; 82553; 83605; 83735; 83880; 84484; 85025; 85379; 85610; 85730; 93005; 96372; 99282; J1885

== ENCOUNTER 2018-08-06 16:30 | Emergency (ER) | payer OTHER ==
[2018-08-06 18:37] LABS: ABS Eosinophils 0.3 10^3/ul (0-0.6); ABS Lymphocytes 1.7 10^3/ul (1.0-4.8); ABS Monocytes 0.4 10^3/ul (0-0.8); Hematocrit 35 % (35-47); Hemoglobin 10.9 g/dL (12.0-16.0); Lymphocyte % 32.1 %; Mean Corpuscular HGB Conc 31 g/dL (31-36); Mean Corpuscular Hemoglobin 22 pg (27-31); Mean Corpuscular Volume 70 fL (80-97); Mean Platelet Volume 8.8 fL (7.4-10.4); Nucleated Red Blood Cells % 0.1; Platelet Count 262 10^3/uL (150-450); Red Blood Count 4.97 10^6 /uL (3.70-4.87); Red Cell Distribution Width 16 % (10.5-15); White Blood Count 5.4 10^3/uL (3.5-10.8)
[2018-08-06 18:41] LABS: INR 1.03 (0.82-1.09)
--- NOTE | 2018-08-06 18:43 | ED ---
HPI Chest Pain - HPI Summary HPI Summary: 62-year-old 62-year-old Afro-Romanian female presents from [facility] for complaints of chest pain. According to the [place] [facility] records patient had onset of pain around 2 AM in the morning. Initially rated her pain as an 8 out of 10 and she was given aspirin 324 mg followed by 2 doses of nitroglycerin 0.4 mg sublingual and the patient reported a decrease in her pain to a 4 out of 10. Triage nurse also noted that the patient was given a dose of Maalox along with the above medications. Patient presently complains of mild substernal and epigastric discomfort. States she has been having some issues with constipation. Denies fever, chills, palpitations, diaphoresis, shortness of breath, abdominal pain, nausea, or vomiting. - History of Current Complaint Chief Complaint: EDChestPainROMI Time Seen by Provider: 08/06/18 17:31 Hx Obtained From: Patient Pain Intensity: 6 - Additional Pertinent History Primary Care Physician: FABIOLA - Allergy/Home Medications Allergies/Adverse Reactions: Allergies Allergy/AdvReac Type Severity Reaction Status Date / Time Sulfa (Sulfonamide Allergy Vomiting Verified 08/06/18 16:40 Antibiotics) ENVIRONMENTAL Allergy SINUS Uncoded 07/01/18 12:45 SYMPTOMS Home Medications: Home Medications Oxybutynin TAB* [Ditropan TAB*] 5 mg PO BID 08/06/18 [History Confirmed 08/06/18 ] Ranitidine TAB (NF) [Zantac TAB (NF)] 150 mg PO BID 08/06/18 [History Confirmed 08/06/18] PMH/Surg Hx/FS Hx/Imm Hx Endocrine/Hematology History: Reports: Hx Anemia Denies: Hx Diabetes Cardiovascular History: Reports: Hx Angina Denies: Hx Congestive Heart Failure, Hx Coronary Artery Disease, Hx Hypercholesterolemia, Hx Hypertension, Hx Myocardial Infarction, Hx Pacemaker/ ICD, Hx Valvular Heart Disease Respiratory History: Denies: Hx Asthma, Hx Chronic Obstructive Pulmonary Disease (COPD) GI History: Reports: Hx Gastroesophageal Reflux Disease, Hx Ulcer, Other GI Disorders - GASTRITIS- TAKES MAALOX FOR GASTRITIS History: Denies: Hx Renal Disease Musculoskeletal History: Reports: Hx Arthritis - HANDS AND FEET Sensory History: Reports: Hx Contacts or Glasses - GLASSES Denies: Hx Hearing Aid Opthamlomology History: Reports: Hx Contacts or Glasses - GLASSES Neurological History: Denies: Hx CVA Psychiatric History: Reports: Hx Anxiety, Hx Depression, Hx Schizophrenia Denies: Hx Eating Disorder, Hx Panic Disorder - Cancer History Cancer Type, Location and Year: PATRICIO DIAZ CONCERNED BUT BIOPSY NEGATIVE,PER PT. Hx Chemotherapy: No Hx Radiation Therapy: No - Surgical History Surgery Procedure, Year, and Place: biopsy on breast-DR. DIAZ'S OFFICE, D&C- [facility] [place] Hx Anesthesia Reactions: No - Immunization History Date of Tetanus Vaccine: unknown Date of Influenza Vaccine: unknown Infectious Disease History: No Infectious Disease History: Denies: History Other Infectious Disease, Traveled Outside the [place] in Last 30 Days - Family History Known Family History: Positive: Seizure Disorder, Other - Sister has CA. Negative: Cardiac Disease, Hypertension, Diabetes Family History: Bipolar, schizophrenia, depression - Social History Occupation: Disabled Lives: At [facility] Alcohol Use: None Hx Substance Use: No Substance Use Type: Reports: None Hx Tobacco Use: No Smoking Status (MU): Former Smoker Amount Used/How Often: 4-5 CIGARETTES PER DAY X UNKNOWN AMOUNT OF YEARS Have You Smoked in the Last Year: No Review of Systems Negative: Fever, Chills ENT: Negative Positive: Chest Pain. Negative: Palpitations Negative: Shortness Of Breath, Cough Positive: Abdominal Pain - Bloating, Other - Constipation. Negative: Vomiting, Diarrhea, Nausea Positive: no symptoms reported Musculoskeletal: Negative Skin: Negative Negative: Headache, Weakness, Paresthesia, Numbness, Syncope All Other Systems Reviewed And Are Negative: Yes Physical Exam - Summary Physical Exam Summary: GENERAL APPEARANCE: Alert and cooperative older adult female who appears to be in no acute distress. CARDIAC: Normal S1 and S2. No S3, S4 or murmurs. Rhythm is regular. There is no peripheral edema, cyanosis or pallor. Extremities are warm and well perfused. Capillary refill is less than 2 seconds. Peripheral pulses intact. LUNGS: Clear to auscultation without rales, rhonchi, wheezing or diminished breath sounds. ABDOMEN: Positive bowel sounds. Rotund, soft, nondistended, nontender. No guarding or rebound. No masses or hepatosplenomegally. MUSKULOSKELETAL: ROM intact to all extremities. No joint erythema or tenderness. Normal muscular development. SKIN: Skin normal color, texture and turgor with no lesions or eruptions. Triage Information Reviewed: Yes Vital Signs On Initial Exam: Initial Vitals Temp Pulse Resp BP Pulse Ox 99.3 F 82 18 136/84 97 08/06/18 16:38 08/06/18 16:38 08/06/18 16:38 08/06/18 16:38 08/06/18 16:38 Vital Signs Reviewed: Yes Diagnostics - Vital Signs Vital Signs Temp Pulse Resp BP Pulse Ox 08/06/18 16:38 99.3 F 82 18 136/84 97 - Laboratory Lab Results: Lab Results 08/06/18 Range/Units 18:26 WBC 5.4 (3.5-10.8) 10^3/uL RBC 4.97 H (3.70-4.87) 10^6 /uL Hgb 10.9 L (12.0-16.0) g/dL Hct 35 (35-47) % MCV 70 L (80-97) fL MCH 22 L (27-31) pg MCHC 31 (31-36) g/dL RDW 16 H (10.5-15) % Plt Count 262 (150-450) 10^3/uL MPV 8.8 (7.4-10.4) fL Neut % (Auto) 55.5 % Lymph % (Auto) 32.1 % [place] % (Auto) 6.6 % Eos % (Auto) 5.0 % Baso % (Auto) 0.8 % Absolute Neuts (auto) 3.0 (1.5-7.7) 10^3/ul Absolute Lymphs (auto) 1.7 (1.0-4.8) 10^3/ul Absolute Monos (auto) 0.4 (0-0.8) 10^3/ul Absolute Eos (auto) 0.3 (0-0.6) 10^3/ul Absolute Basos (auto) 0.0 (0-0.2) 10^3/ul Absolute Nucleated RBC 0.0 10^3/ul Nucleated RBC % 0.1 Result Diagrams: 08/06/18 18:26 08/06/18 18:26 Lab Statement: Any lab studies that have been ordered have been reviewed, and results considered in the medical decision making process. - EKG No standard instances Cardiac Rate: NL - 84 EKG Rhythm: Sinus Rhythm ST Segment: Normal Ectopy: None Re-Evaluation - Re-Evaluation First Eval Re-Evaluation Time: 19:45 Change: Improved Comment: Patient reports she is presently pain-free and feels well. I reviewed the EKG and lab findings with the patient. Will plan to discharge patient back to the [place] [facility]. Chest Pain Course/Dx - Course Course Of Treatment: 62-year-old 62-year-old Afro-Romanian female presents from [facility] for complaints of chest pain. According to the [place] [facility] records patient had onset of pain around 2 AM in the morning. Initially rated her pain as an 8 out of 10 and she was given aspirin 324 mg followed by 2 doses of nitroglycerin 0.4 mg sublingual and the patient reported a decrease in her pain to a 4 out of 10. Triage nurse also noted that the patient was given a dose of Maalox along with the above medications. Patient presently complains of mild substernal and epigastric discomfort. States she has been having some issues with constipation. Denies fever, chills, palpitations, diaphoresis, shortness of breath, abdominal pain, nausea, or vomiting. Afebrile. Vital signs stable. Patient's exam was overall unremarkable. Twelve-lead EKG showed sinus rhythm at a rate of 84 without ectopy, ST elevation, or T-wave abnormalities. Portal chest x-ray showed no acute cardiopulmonary pathology. Lab work showed a normal white blood cell count of 5.4, she is anemic with a right blood cell count of 4.97, hemoglobin of 10.9 with an MCV of 70, MCH of 21 , and an RDW of 16 which are consistent with her history and previous lab work. Chemistry showed a mildly elevated glucose of 105 and she had a negative troponin of 0.00. During the course of her stay patient states that her pain was completely resolved and she was feeling much better. Based on her improvement in symptoms and negative workup I will plan to have her return to the [place] [facility] with no new orders. She is to follow-up with her primary care provider within 2-3 days for recheck of her symptoms. Anticipatory guidance and warning symptoms reviewed with the patient. Verbalizes understanding and agrees with plan of care. - Chest Pain Differential Diagnosis/HQI/PQRI: ACS, Angina, Chest Wall, GI Disease, Lower Respiratory Infection - Diagnoses Provider Diagnoses: Chest pain Discharge - Sign-Out/Discharge Documenting (check all that apply): Patient Departure Patient Received Moderate/Deep Sedation with Procedure: No - Discharge Plan Condition: Stable Disposition: HOME Patient Education Materials: Chest Pain (ED) Referrals: Fatou Coker NP [Primary Care Provider] - 2 Days Additional Instructions: Your chest pain has resolved at this time. Your EKG was normal. Her lab work showed some anemia but is unchanged from previous studies. There was no evidence of any cardiac injury based on her lab work. Continue all medications as previously prescribed. Follow-up with your primary care provider in 2-3 days for recheck of her symptoms. Return to the emergency room if you have any chest pain, feeling as if her heart is racing or skipping beats, shortness of breath, weakness, severe abdominal pain, persistent vomiting, or any worsening of symptoms. - Billing Disposition and Condition Condition: STABLE Disposition: Home
[2018-08-06 18:49] LABS: Albumin 3.8 g/dL (3.2-5.2); Albumin/Globulin Ratio 1.1 (1-3); BUN/Creatinine Ratio 13.6 (8-20); Calcium 9.2 mg/dL (8.6-10.3); EGFR African American 86.4 (>60); EGFR Non-African American 71.4 (>60); Globulin 3.5 g/dL (2-4); Potassium 4.7 mmol/L (3.5-5.0); Total Bilirubin 0.2 mg/dL (0.2-1.0); Total Protein 7.3 g/dL (6.4-8.9)
[2018-08-06 21:31] VITALS: BP 139/88
== END 2018-08-06 21:32 | disposition home or self-care (01) ==
LOC: ED 16:30
DX: R07.9 Chest pain, unspecified (principal); J44.9 Chronic obstructive pulmonary disease, unspecified; K44.9 Diaphragmatic hernia without obstruction or gangrene; D64.9 Anemia, unspecified; K21.9 Gastro-esophageal reflux disease without esophagitis; F41.9 Anxiety disorder, unspecified; F32.9 Major depressive disorder, single episode, unspecified; F20.9 Schizophrenia, unspecified; Z87.891 Personal history of nicotine dependence; Z88.2 Allergy status to sulfonamides
CPT/HCPCS: 36415; 71045; 80053; 84484; 85025; 85610; 93005; 99285

== ENCOUNTER 2018-11-20 14:05 | Emergency (ER) | payer OTHER ==
[2018-11-20] MEDS ORDERED: Al Hydrox/Mg Hydrox/Simet LIQ* 30 ML UDC PO ONE (14:16)
[2018-11-20] MEDS ORDERED: Lidocaine 2% VISCOUS* 15 ML UDC PO ONE (14:16)
--- NOTE | 2018-11-20 14:21 | ED ---
HPI Chest Pain - HPI Summary HPI Summary: 63 year old F brought to [facility] by EMS with a chief complaint of long sharp chest pain and shortness of breath after eating today, 11/20/18, at 14:16, per triage. Symptoms aggravated by nothing. Symptoms alleviated by nothing. Patient reports hx gastritis for which she did not see a doctor for and that current symptoms are similar to past symptoms stating this feels like her typical gastritis. Patient denies trouble breathing, nausea, perfuse diaphoresis, hx of heart disease and blood clot, and recent travel. Patient reports swelling in her legs. Patient reports she takes a pill to hold water in. SHx lump taken out of breast (did not find any cancer). Patient denies alcohol use, smoking, drug use, or Fhx of heart disease. - History of Current Complaint Hx Obtained From: Patient Onset/Duration: Started Hours Ago, Still Present Aggravating Factor(s): Nothing Alleviating Factor(s): Nothing Associated Signs and Symptoms: Positive: Swelling - in legs, Other: - denies trouble breathing. Negative: Diaphoresis, Nausea - Additional Pertinent History Primary Care Physician: FABIOLA - Allergy/Home Medications Allergies/Adverse Reactions: Allergies Allergy/AdvReac Type Severity Reaction Status Date / Time Sulfa (Sulfonamide Allergy Vomiting Verified 08/06/18 16:40 Antibiotics) ENVIRONMENTAL Allergy SINUS Uncoded 07/01/18 12:45 SYMPTOMS PMH/Surg Hx/FS Hx/Imm Hx Endocrine/Hematology History: Reports: Hx Anemia Denies: Hx Diabetes Cardiovascular History: Reports: Hx Angina Denies: Hx Congestive Heart Failure, Hx Coronary Artery Disease, Hx Hypercholesterolemia, Hx Hypertension, Hx Myocardial Infarction, Hx Pacemaker/ ICD, Hx Valvular Heart Disease Respiratory History: Denies: Hx Asthma, Hx Chronic Obstructive Pulmonary Disease (COPD) GI History: Reports: Hx Gastroesophageal Reflux Disease, Hx Ulcer, Other GI Disorders - GASTRITIS- TAKES MAALOX FOR GASTRITIS History: Denies: Hx Renal Disease Musculoskeletal History: Reports: Hx Arthritis - HANDS AND FEET Sensory History: Reports: Hx Contacts or Glasses - GLASSES Denies: Hx Hearing Aid Opthamlomology History: Reports: Hx Contacts or Glasses - GLASSES Neurological History: Denies: Hx CVA Psychiatric History: Reports: Hx Anxiety, Hx Depression, Hx Schizophrenia Denies: Hx Eating Disorder, Hx Panic Disorder - Cancer History Cancer Type, Location and Year: [facility] CONCERNED BUT BIOPSY NEGATIVE,PER PT. Hx Chemotherapy: No Hx Radiation Therapy: No - Surgical History Surgery Procedure, Year, and Place: biopsy on breast-DR. DIAZ'S OFFICE, [facility] [facility] [place] Anesthesia Reactions: No - Immunization History Date of Tetanus Vaccine: unknown Date of Influenza Vaccine: unknown Infectious Disease History: Denies: History Other Infectious Disease - Family History Known Family History: Positive: Seizure Disorder, Other - Sister has CA. Negative: Cardiac Disease, Hypertension, Diabetes Family History: Bipolar, schizophrenia, depression - Social History Alcohol Use: None Hx Substance Use: No Substance Use Type: Reports: None Hx Tobacco Use: Yes Smoking Status (MU): Former Smoker Amount Used/How Often: 4-5 CIGARETTES PER DAY X UNKNOWN AMOUNT OF YEARS Have You Smoked in the Last Year: No Review of Systems Negative: Skin Diaphoresis Positive: Chest Pain Positive: Shortness Of Breath. Negative: Other - denies trouble breathing Negative: Nausea Positive: Other - swelling in legs All Other Systems Reviewed And Are Negative: Yes Physical Exam - Summary Physical Exam Summary: Constitutional: Well-developed, Well-nourished, Alert. (-) Distressed Skin: Warm, Dry HENT: Normocephalic; Atraumatic Eyes: Conjunctiva normal Neck: Musculoskeletal ROM normal neck. (-) JVD, (-) Stridor, (-) Tracheal deviation Cardio: Rhythm regular, rate normal, Heart sounds normal; Intact distal pulses; The pedal pulses are 2+ and symmetric. Radial pulses are 2+ and symmetric. (-) Murmur Pulmonary/Chest wall: Effort normal. (-) Respiratory distress, (-) Wheezes, (-) Rales Abd: Soft, (-) tenderness, (-) Distension, (-) Guarding, (-) Rebound Musculoskeletal: (-) Edema Lymph: (-) Cervical adenopathy Neuro: Alert, Oriented x3 Psych: Mood and affect Normal Triage Information Reviewed: Yes Vital Signs Reviewed: Yes Diagnostics - Laboratory Result Diagrams: 11/20/18 14:29 11/20/18 14:29 Lab Statement: Any lab studies that have been ordered have been reviewed, and results considered in the medical decision making process. - Radiology Chest X-Ray Radiology Interpretation Completed By: Radiologist Summary of Radiographic Findings: Per radiologist,. #. Stigmata of obstructive lung disease. No acute pulmonary or cardiac process evident. ED physician has reviewed this imaging report. - EKG 1419 Cardiac Rate: NL - 83 BPM Summary of EKG Findings: T-wave inversions in v3 through v5 Re-Evaluation - Re-Evaluation First Eval Re-Evaluation Time: 15:31 Comment: Patient felt much better after Maalox and lidocaine. Physician will discharge pt now. Chest Pain Course/Dx - Course Course Of Treatment: Patient is here with chest pain after eating a greasy meal. Patient states this feels like her typical gastritis. Patient had a cardiac workup which was negative. Patient had negative chest x-ray. Patient was given Maalox and viscous lidocaine with resolution of her symptoms. Patient was educated on a diet for gastritis and was encouraged to eat healthier. - Diagnoses Provider Diagnoses: Chest pain, Gastritis Discharge ED - Sign-Out/Discharge Documenting (check all that apply): Patient Departure - discharge Patient Received Moderate/Deep Sedation with Procedure: No - Discharge Plan Condition: Stable Disposition: HOME Patient Education Materials: Gastritis (ED) Referrals: Fatou Coker NP [Primary Care Provider] - As Soon As Possible Additional Instructions: Come back for any worsening symptoms. Start eating diet we talked about. - Billing Disposition and Condition Condition: STABLE Disposition: Home - Attestation Statements Document Initiated by Henryibe: Yes Documenting Scribe: Sandrita Varela Provider For Whom Dee is Documenting (Include Credential): Dr. Jacob Sumner MD Scribe Attestation: Sandrita Mckeon scribed for Dr. Jacob Sumner MD on 11/20/18 at 1958. Scribe Documentation Reviewed: Yes Provider Attestation: The documentation as recorded by the Sandrita mueller accurately reflects the service I personally performed and the decisions made by me, Dr. Jacob Sumner MD Status of Scribe Document: Viewed
[2018-11-20 14:39] LABS: ABS Basophils 0.1 10^3/ul (0-0.2); ABS Eosinophils 0.2 10^3/ul (0-0.6); ABS Lymphocytes 1.5 10^3/ul (1.0-4.8); ABS Monocytes 0.3 10^3/ul (0-0.8); ABS Neutrophils 3.1 10^3/ul (1.5-7.7); Eosinophil % 4.4 %; Hematocrit 35 % (35-47); Lymphocyte % 29.4 %; Mean Corpuscular HGB Conc 32 g/dL (31-36); Mean Corpuscular Hemoglobin 22 pg (27-31); Mean Corpuscular Volume 70 fL (80-97); Mean Platelet Volume 8.9 fL (7.4-10.4); Nucleated Red Blood Cells % 0.1; Platelet Count 238 10^3/uL (150-450); Red Blood Count 4.96 10^6 /uL (3.70-4.87); Red Cell Distribution Width 17 % (10-15); White Blood Count 5.1 10^3/uL (3.5-10.8)
[2018-11-20 14:59] LABS: Albumin 3.7 g/dL (3.2-5.2); Albumin/Globulin Ratio 1.2 (1-3); BUN/Creatinine Ratio 11.4 (8-20); Calcium 8.7 mg/dL (8.6-10.3); EGFR African American 78.3 (>60); EGFR Non-African American 64.7 (>60); Globulin 3.2 g/dL (2-4); Potassium 3.7 mmol/L (3.5-5.0); Total Bilirubin 0.2 mg/dL (0.2-1.0); Total Protein 6.9 g/dL (6.4-8.9); Troponin I 0.01 ng/mL (<0.04)
--- OUTSIDE RECORDS SUMMARY | 2018-11-20 15:03 | XMS REPORT | Continuity of Care Document ---
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 Onset: 01/16/2011 Anemia Zeny Villegas M.D. Onset: 01/16/2011 Anxiety state Zeny Villegas M.D. Onset: 01/16/2011 Social History Type Date Description Comments Sex Unknown Tobacco Use Start: Unknown Never Smoked Cigarettes ETOH Use Never used alcohol Recreational Drug Use Denies Drug Use Tobacco Use Start: Unknown Patient has never smoked Smoking Status Reviewed: 11/09/18 Patient has never smoked Allergies, Adverse Reactions, Alerts Description No Known Drug Allergies Medications Active Medications SIG Qnty Indications Ordering Date Provider Gas Relief Extra Take One Capsule By 120caps Fatou Coker, 11/05/2018 Strength Mouth Four Times A N.P. 125mg Day as Needed Capsules Cerovite Senior Take One Tablet By 30tabs Fatou Coker, 10/30/2018 Mouth Every Day N.P. Tablets Miralax dissolve 17gr (one 510gm R10.84 Deena Santoyo MD 10/12/2018 3350NF Powder capful) in 8oz of water daily Ranitidine HCL take one tablet by 60tabs Fatou Coker, 07/27/2018 150mg mouth twice a day N.P. Tablets Oxybutynin Chloride One po bid 60tabs Fatou Coker, 07/20/2018 N.P. 5mg Tablets Triamcinolone apply to dry skin 60un Fatou Coker, 05/22/2018 Acetonide once or twice daily N.P. 0.1% Lotion SM Anti-Diarrheal Take One Tablet By 30tabs Fatou Coker, 05/11/2018 2mg Mouth After Each N.P. Tablets Loose Stool Maximum Daily Dose = Eight Tablets Depend Underwear For 1 pair twice daily 60un Fatou Coker, 03/30/2018 Wom Men Large as needed N.P. Maximum Absorbency incontinence. Misc Heating Pad to apply prn back 1un Fatou Coker, 02/24/2018 Moist/Dry pain N.P. Pads Nystop after cleansing and 30un Fatou Coker, 12/17/2017 152135Qscs/GM drying the affected N.P. Powder area, apply the powder. use 2-3 times daily for 7 days. Acetaminophen ER 1 tab by mouth q4 45tabs Biju Alejo NP 11/05/2017 hours as needed 650mg Tablets ER pain Protonix 1 by mouth every 30tabs Fatou Coker, 08/13/2017 [address] day N[address]P. DR Celecoxib one by mouth twice 60caps M85.9 Fatou Coker, 04/23/2017 100mg a day N.P. Capsules Lactulose 15 milliliters once 3600ml Biju Alejo NP 09/23/2016 10GM/15ML a day to aid bowel Solution movement Multivitamin Adults one by mouth daily 30tabs Fatou Coker, 09/04/2016 50+ N.P. Adt 50+ Tablets Mirtazapine 1 by mouth every 30tabs Fatou Coker, 03/06/2016 7.5mg night at bedtime N.P. Tablets Cetirizine HCL 1 by mouth at 30tabs Fatou Coker, 09/05/2015 10mg bedtime as needed N.P. Tablets allergies Ondansetron dissolve 1 tablet 20tabs Fatou Coker, 04/24/2015 4mg on tongue every 6-8 N.P. Tablets Dispers hours as needed for vomiting Colace 1 by mouth twice a 180caps Fatou Coker, 12/01/2014 100mg Capsules day as needed N.P. constipation Maalox Max 10 milliliters 355ml Fatou Coker, every 4 hours as N.P. [phone]/5ML needed Suspension Pramoxine HCL [facility] d/c summary Unknown 1% Foam 01/06/15- Pramoxine HCl vaginal wipes 1%- apply to affected area 3-4 times a day for vaginal itching. Klonopin 1 by mouth qd Unknown 0.5mg Tablets Hydroxyzine HCL 1 tab by mouth 60tabs Fatou Coker, 25mg every night may N.P. Tablets repeat after 30 min Gabapentin take 1 capsule by 60caps Fatou Coker, 100mg mouth every in the N.P. Capsules morning 1 by mouth at noon Lotrisone apply externally Unknown 1-0.05% bid-tid Cream History Medications Tolterodine Tartrate One po bid 60tabs R32 Fatou Coker, 07/12/2018 - N.P. 07/20/2018 2mg Tablets Oxybutynin Chloride 2 tablets po qd 60tabs Fatou Coker, 06/16/2018 - ER N.P. 07/02/2018 5mg Tablets ER 24HR Oxybutynin Chloride 1 by mouth every 30tabs Fatou Justinn, 06/07/2018 - ER day N.P. 07/12/2018 10mg Tablets ER 24HR Ditropan XL 1 by mouth every 30tabs Fatou Justinbuck, 06/04/2018 - 10mg day N.P. 06/07/2018 Tablets ER 24HR Immunizations CPT Code Status Date Vaccine Lot # [id number] Given 12/09/2016 Influenza Virus Vaccine, Quadrivalent, Split, Preservative Free [id number] Given 07/08/2013 Tdap - Tetanus/Diptheria/Acellular Pertussis [id number] Given 01/26/2012 Fluvirin Im 3Yrs And Older 07304 Given 01/16/2011 Influenza Virus 3Yrs & Over [id number] Given 04/10/2009 Influenza Virus Vaccine, Pandemic Formulation [id number] Given 04/10/2009 Administration Swine Flu Shot Vital Signs Date Vital Result Comment 11/09/2018 9:00am Height 65.25 inches 5'5.25" Weight 147.38 lb Heart Rate 84 /min BP Systolic Sitting 110 mmHg Rue reg cuff BP Diastolic Sitting 75 mmHg Rue reg cuff Body Temperature 97.0 F O2 % BldC Oximetry 97 % BMI (Body Mass Index) 24.3 kg/m2 09/14/2018 10:20am Height 65.25 inches 5'5.25" Weight 150.19 lb Heart Rate 70 /min BP Systolic 124 mmHg BP Diastolic 77 mmHg Body Temperature 97.0 F O2 % BldC Oximetry 99 % BMI (Body Mass Index) 24.8 kg/m2 Results Test Date Facility Test Result H/L Range Note Laboratory test [facility] Cytology SEE RESULT 1 , 2 finding [address] [place] [address] [phone] 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5-7.7 Abs Lymphocytes 2.8 10^3/uL Normal 1.0-4.8 Abs Monocytes 0.5 10^3/uL Normal 0-0.8 Abs Eosinophils 0.4 10^3/uL Normal 0-0.6 Abs Basophils 0.1 10^3/uL Normal 0-0.2 Abs Nucleated RBC 0.0 10^3/uL Granulocyte % 50.2 % Lymphocyte % 37.6 % Monocyte % 6.7 % Eosinophil % 4.8 % Basophil % 0.7 % Nucleated Red Blood Cells % 0.1 Laboratory test 08/17/2018 [facility] Ferritin 25.2 ng/mL Normal 11-307 5 finding [address] [place] [address] [phone] Iron & Iron 08/17/2018 [facility] Iron 73 g/dL Normal 50- 212 Binding Capacity [address] [place] [address] [phone] Unsaturated Iron Binding < 304 g/dL Total Iron Binding Capacity 319 g/dL Normal 250-450 Transferrin 228 mg/dL Normal 203-362 % Iron Saturation 23 % Normal 15-55 Inr/Protime 08/06/2018 [facility] Inr 1.03 Normal 0.82-1.09 6 [address] [place] [address] [phone] CBC Auto Diff 08/06/2018 [facility] White Blood 5.4 Normal 3.5 -10.[address] [facility] Count 10^3/[place] [address] [phone] Red Blood Count 4.97 10^6/uL High 3.70-4.87 Hemoglobin 10.9 g/dL Low 12.0-16.0 Hematocrit 35 % Normal 35-47 Mean Corpuscular Volume 70 fL Low 80-97 7 Mean Corpuscular Hemoglobin 22 pg Low 27-31 Mean Corpuscular HGB Conc 31 g/dL Normal 31-36 Red Cell Distribution Width 16 % High 10.5-15 Platelet Count 262 10^3/uL Normal 150-450 Mean Platelet Volume 8.8 fL Normal 7.4-10.4 Abs Neutrophils 3.0 10^3/uL Normal 1.5-7.7 Abs Lymphocytes 1.7 10^3/uL Normal 1.0-4.8 Abs Monocytes 0.4 10^3/uL Normal 0-0.8 Abs Eosinophils 0.3 10^3/uL Normal 0-0.6 Abs Basophils 0.0 10^3/uL Normal 0-0.2 Abs Nucleated RBC 0.0 10^3/uL Granulocyte % 55.5 % Lymphocyte % 32.1 % Monocyte % 6.6 % Eosinophil % 5.0 % Basophil % 0.8 % Nucleated Red Blood Cells % 0.1 Comp Metabolic 08/06/2018 [facility] Sodium 139 mmol/L Normal 135-[address] [place] [address] [phone] Potassium 4.7 mmol/L Normal 3.5-5.0 Chloride 106 mmol/L Normal 101-111 Co2 Carbon Dioxide 30 mmol/L Normal 22-32 Anion Gap 3 mmol/L Normal 2-11 Glucose 105 mg/dL High 70-100 Blood Urea Nitrogen 11 mg/dL Normal 6-24 Creatinine 0.81 mg/dL Normal 0.51-0.95 BUN/Creatinine Ratio 13.6 Normal 8-20 Calcium 9.2 mg/dL Normal 8.6-10.3 Total Protein 7.3 g/dL Normal 6.4-8.9 Albumin 3.8 g/dL Normal 3.2-5.2 Globulin 3.5 g/dL Normal 2-4 Albumin/Globulin Ratio 1.1 Normal 1-3 Total Bilirubin 0.20 mg/dL Normal 0.2-1.0 Alkaline Phosphatase 85 U/L Normal 34-104 Alt 10 U/L Normal 7-52 Ast 13 U/L Normal 13-39 Egfr Non- 71.4 >60 Egfr 86.4 >60 8 Laboratory test 08/06/2018 [facility] Troponin-I 0.00 <0.04 [address] (TnI) ng/[place] [address] [phone] Urine Culture 07/12/2018 [facility] Urine Culture SEE 10, And [address] RESULT 11 [place] [address] BELOW [phone] CBC Auto Diff 07/03/2018 [facility] White Blood 5.6 Normal 3.5 -10.[address] Count 10^3/[place] [address] [phone] Red Blood Count 5.47 10^6/uL High 3.70-4.87 Hemoglobin 11.9 g/dL Low 12.0-16.0 Hematocrit 39 % Normal 33-41 Mean Corpuscular Volume 71 fL Low 80-97 Mean Corpuscular Hemoglobin 22 pg Low 27-31 Mean Corpuscular HGB Conc 31 g/dL Normal 31-36 Red Cell Distribution Width 16 % High 10.5-15 Platelet Count 280 10^3/uL Normal 150-450 Mean Platelet Volume 9.3 fL Normal 7.4-10.4 Abs Neutrophils 3.2 10^3/uL Normal 1.5-7.7 Abs Lymphocytes 1.8 10^3/uL Normal 1.0-4.8 Abs Monocytes 0.3 10^3/uL Normal 0-0.8 Abs Eosinophils 0.3 10^3/uL Normal 0-0.6 Abs Basophils 0 10^3/uL Normal 0-0.2 Abs Nucleated RBC 0 10^3/uL Granulocyte % 56.9 % Lymphocyte % 31.9 % Monocyte % 5.0 % Eosinophil % 5.5 % Basophil % 0.7 % Nucleated Red Blood Cells % 0.1 Laboratory test 07/03/2018 [facility] Lactic Acid 2.0 mmol/L Normal 0.5-2.0 12 finding [address] [place] [address] [phone] CKMB 07/03/2018 [facility] CKMB ng/mL 1.1 ng/mL Normal 0.6- 6.[address] [place] [address] [phone] Laboratory test 07/03/2018 [facility] Magnesium 2.2 mg/dL Normal 1.9-2.[address] [place] [address] [phone] Creatine Kinase(CK) 222 U/L Normal 10-223 Troponin-I (TnI) 0.00 ng/mL <0.04 13 Comp Metabolic 07/03/2018 [facility] Sodium 140 mmol/L Normal 135-[address] [place] [address] [phone] Potassium 4.2 mmol/L Normal 3.5-5.0 Chloride 106 mmol/L Normal 101-111 Co2 Carbon Dioxide 30 mmol/L Normal 22-32 Anion Gap 4 mmol/L Normal 2-11 Glucose 108 mg/dL High 70-100 Blood Urea Nitrogen 13 mg/dL Normal 6-24 Creatinine 0.88 mg/dL Normal 0.51-0.95 BUN/Creatinine Ratio 14.8 Normal 8-20 Calcium 9.3 mg/dL Normal 8.6-10.3 Total Protein 7.9 g/dL Normal 6.4-8.9 Albumin 4.1 g/dL Normal 3.2-5.2 Globulin 3.8 g/dL Normal 2-4 Albumin/Globulin Ratio 1.1 Normal 1-3 Total Bilirubin 0.30 mg/dL Normal 0.2-1.0 Alkaline Phosphatase 104 U/L Normal 34-104 Alt 13 U/L Normal 7-52 Ast 14 U/L Normal 13-39 Egfr Non- 64.9 >60 Egfr 78.5 >60 14 Influenza A & B 07/03/2018 [facility] Influenza A NEGATIVE Negative [address] [place] [address] [phone] Influenza B Molecular NEGATIVE Negative Laboratory test 07/03/2018 [facility] Partial 32.9 Normal 26.0 -36.[address] [place] [address] Time PTT [phone] B-Type Natriuretic Peptide BNP 10 pg/mL <=100 D Dimer Quantitative < 200 ng/mL Normal Less Than 230 16 Inr/Protime 07/03/2018 [facility] Inr 0.95 Normal 0.77-1.[address] [place] [address] [phone] Laboratory test 07/03/2018 [facility] Troponin-I 0.00 <0.04 [address] (TnI) ng/mL [place], [place] [address] [phone] Laboratory test 07/01/2018 [facility] Troponin-I 0.00 <0.04 [address] (TnI) ng/mL [place], [place] [address] [phone] Urinalysis 07/01/2018 [facility] Urine Straw Profile [address] [place] [address] [phone] Urine Appearance Clear Urine Specific [place] 1.004 Low 1.010-1.030 Urine pH 8.0 Normal 5-9 Urine Urobilinogen Negative Negative Urine Ketones Negative Negative Urine Protein Negative Negative Urine Leukocytes Trace Abnormal Negative Urine Blood Negative Negative Urine Nitrite Negative Negative Urine Bilirubin Negative Negative Urine Glucose Negative Negative Urine White Blood Cell Trace(0-5/hpf) Absent Urine Red Blood Cell Absent Absent Urine Bacteria Absent Absent Urine Squamous Epithelial Cell Present Abnormal Absent Urine Culture And 07/01/2018 [facility] Urine SEE RESULT [address] [place] [address] [phone] CBC Auto Diff 07/01/2018 [facility] White Blood 6.0 10^3/uL Normal 3.5- [address] Count 10.8 [place] [address] [phone] Red Blood Count 5.36 10^6/uL High 3.70-4.87 Hemoglobin 11.8 g/dL Low 12.0-16.0 Hematocrit 38 % Normal 33-41 Mean Corpuscular Volume 70 fL Low 80-97 20 Mean Corpuscular Hemoglobin 22 pg Low 27-31 Mean Corpuscular HGB Conc 31 g/dL Normal 31-36 Red Cell Distribution Width 16 % High 10.5-15 Platelet Count 262 10^3/uL Normal 150-450 Mean Platelet Volume 9.1 fL Normal 7.4-10.4 Abs Neutrophils 3.4 10^3/uL Normal 1.5-7.7 Abs Lymphocytes 1.9 10^3/uL Normal 1.0-4.8 Abs Monocytes 0.4 10^3/uL Normal 0-0.8 Abs Eosinophils 0.3 10^3/uL Normal 0-0.6 Abs Basophils 0 10^3/uL Normal 0-0.2 Abs Nucleated RBC 0 10^3/uL Granulocyte % 56.0 % Lymphocyte % 31.7 % Monocyte % 6.4 % Eosinophil % 5.2 % Basophil % 0.7 % Nucleated Red Blood Cells % 0.1 Laboratory test 07/01/2018 [facility] Lactic Acid 1.1 mmol/L Normal 0.5-2.0 [address] [place] [address] [phone] Comp Metabolic 07/01/2018 [facility] Sodium 141 mmol/L Normal 135-[address] [place] [address] [phone] Potassium 4.1 mmol/L Normal 3.5-5.0 Chloride 106 mmol/L Normal 101-111 Co2 Carbon Dioxide 28 mmol/L Normal 22-32 Anion Gap 7 mmol/L Normal 2-11 Glucose 92 mg/dL Normal 70-100 Blood Urea Nitrogen 12 mg/dL Normal 6-24 Creatinine 0.85 mg/dL Normal 0.51-0.95 BUN/Creatinine Ratio 14.1 Normal 8-20 Calcium 9.4 mg/dL Normal 8.6-10.3 Total Protein 7.9 g/dL Normal 6.4-8.9 Albumin 4.0 g/dL Normal 3.2-5.2 Globulin 3.9 g/dL Normal 2-4 Albumin/Globulin Ratio 1.0 Normal 1-3 Total Bilirubin 0.30 mg/dL Normal 0.2-1.0 Alkaline Phosphatase 101 U/L Normal 34-104 Alt 14 U/L Normal 7-52 Ast 16 U/L Normal 13-39 Egfr Non- 67.5 >60 Egfr 81.7 >60 22 Laboratory 07/01/2018 [facility] Troponin-I (TnI) 0.00 <0.04 23 test finding [address] ng/[place] [address] [phone] Laboratory 07/01/2018 [facility] D Dimer < 200 Normal Less 24 test finding [address] Quantitative ng/mL Than [address] [place] [address] [phone] 1 [id number] 2 SEE RESULT BELOW Name: RENEE LINDSAY : [address]: Fatou Coker NP Acct: [id number] Unit: [id number] AGE: 63 Location: [facility] Re09/14/18 SEX: F Status: REG REF SPEC: [id number] LADI: 09/14/18-[address] [facility] [address]: Fatou Coker METAL MOLDER REQ: [id number] RECD: 09/14/18 STATUS: SOUT _ ORDERED: TP IMAGE ANALYS, HPV/Thin Prep, HPV 16/18 GENE COMMENTS: [id number] Negative for Intraepithelial lesion or Malignancy Date Time Test Result Flag (u) Normal Range 09/14/181655 HPV RNA RFLX GE Negative Negative The high-risk HPV types detected by the assay include: 16, 18, 31, 33, 35, 39, 45, 51, 52, 56, 58, 59, 66, and 68. A. Ectocervical/Endocervical Specimen Adequacy: Satisfactory of evaluation Transformation zone component identified Patient Information: HPV: High risk HPV RNA testing regardless of pap results. HPV 16/18 Genotype Reflex Actual Specimen Date: 09/14/18 LMP If Unknown: age 50+/- Spec Date if unknown: unknown ?: N Post Menopausal?: Y Hysterectomy?: N Previous Abnormal Pap Smears?:N Signed by and Reported on: TURNER Bernal(ASCP) [id number] This Pap test was evaluated with the assistance of the ColondeePrep Test Imaging System. Due to cytologic findings at the supercharger mechanic microscope, comprehensive manual rescreening by a Fulfillment Associate may be required. The Pap Smear is a screening test designed to aid in the detection of premalignant and malignant conditions of the uterine cervix. It is not a diagnostic procedure and should not be used as the sole means of detecting cervical cancer. Both false- positive and false- negative reports do occur. Depending on your risk status, a Pap smear should be obtained and evaluated every 1-3 years. END OF REPORT DEPARTMENT OF PATHOLOGY, [address] [place] [address] Rob Kim M.D. Director [facility] # [id number] 3 [id number] [email or web address] 4 Consistent with Previous Results Reported on 08/06/18 5 [id number] [place] 6 Standard intensity warfarin therapeutic range: 2.0-3.0 High intensity warfarin therapeutic range: 2.5-3.5 7 Consistent with Previous Results Reported on 07/03/18. 8 Because ethnic data is not always readily available, this report includes an eGFR for both -Americans and non- Americans. The National Kidney Disease Education Program (NKDEP) does not endorse the use of the MDRD equation for patients that are not between the ages of 18 and 70, are , have extremes of body size, muscle mass, or nutritional status, or are non- or non-. According to the National Kidney Foundation, irrespective of diagnosis, the stage of the disease is based on the level of kidney function: Stage Description GFR(mL/min/1.73 m(2)) 1 Kidney damage with normal or decreased GFR 90 2 Kidney damage with mild decrease in GFR 60-89 3 Moderate decrease in GFR 30-59 4 Severe decrease in GFR 15-29 5 Kidney failure <15 (or dialysis) 9 Troponin-I testing on Plasma Separator Tubes (PST) has a known false positive rate of 0.20-0.40%. All positive troponins reflex immediately to secondary confirmatory testing. Using the qualifyorI 800 Access Immunoassay systems, the 99th percentile upper reference limit was demonstrated to be < 0.03 ng/mL. 10 [id number] 11 SEE RESULT BELOW Name: RENEE LINDSAY : [address]: Fatou Coker NP Acct: [id number] Unit: [id number] AGE: 62 Location: [facility] Re07/12/18 SEX: F Status: REG REF SPEC: [id number] LADI: 07/12/18-[address] [facility] [address]: Fatou Coker NP REQ: [id number] RECD: 07/12/18 STATUS: COMP _ SOURCE: URINE SPDESC: ORDERED: Urine Culture COMMENTS: [id number] Urine Source: Random Procedure Result Reported Site Urine Culture Final 07/13/18- 1635 ML No growth of clinically significant organisms * ML - Main Lab . END OF REPORT DEPARTMENT OF PATHOLOGY, [address] [place] [address] Rob Kim M.D. Director [facility] # [id number] 12 [facility] Severe Sepsis and Septic Shock Management Bundle Measure requires all lactic acids initially measuring >2.0 mmol/L be repeated. 13 Troponin-I testing on Plasma Separator Tubes (PST) has a known false positive rate of 0.20-0.40%. All positive troponins reflex immediate secondary confirmatory testing. 14 Because ethnic data is not always readily available, this report includes an eGFR for both -Americans and non- Americans. The National Kidney Disease Education Program (NKDEP) does not endorse the use of the MDRD equation for patients that are not between the ages of 18 and 70, are , have extremes of body size, muscle mass, or nutritional status, or are non- or non-. According to the National Kidney Foundation, irrespective of diagnosis, the stage of the disease is based on the level of kidney function: Stage Description GFR(mL/min/1.73 m(2)) 1 Kidney damage with normal or decreased GFR 90 2 Kidney damage with mild decrease in GFR 60-89 3 Moderate decrease in GFR 30-59 4 Severe decrease in GFR 15-29 5 Kidney failure <15 (or dialysis) 15 [employer] Machine Tender: [id number] 16 Please note: The following may produce a false positive D Dimer test: - Rheumatoid factor greater than 60 IU/ml - Plasma hemoglobin greater than 0.05 gm/dl - Bilirubin greater than 50 mg/dl - Lipids greater than 1000 mg/dl - FDP greater than 20 ug/ml 17 Troponin-I testing on Plasma Separator Tubes (PST) has a known false positive rate of 0.20-0.40%. All positive troponins reflex immediate secondary confirmatory testing. 18 Troponin-I testing on Plasma Separator Tubes (PST) has a known false positive rate of 0.20-0.40%. All positive troponins reflex immediate secondary confirmatory testing. 19 SEE RESULT BELOW Name: RENEE LINDSAY : [address]: Chalino Trejo MD Acct: [id number] Unit: [id number] AGE: 62 Location: ED Re07/01/18 SEX: F Status: REG ER SPEC: [id number] LADI: 07/01/[address] [facility] [address]: Chalino Trejo MD REQ: [id number] RECD: 07/01/18 STATUS: SADIA GOMEZ DR: Fatou Coker METAL MOLDER _ S[facility] ORDERED: Urine Culture Procedure Result Reported Site Urine Culture Final 07/02/18- 1406 ML No growth of clinically significant organisms * ML - Main Lab . END OF REPORT DEPARTMENT OF PATHOLOGY, [address] [place] [address] Rob Kim M.D. Director [facility] # [id number] 20 Consistent with Previous Results Reported on 05/17/17 [facility] Severe Sepsis and Septic Shock Management Bundle Measure requires all lactic acids initially measuring >2.0 mmol/L be repeated. 22 Because ethnic data is not always readily available, this report includes an eGFR for both -Americans and non- Americans. The National Kidney Disease Education Program (NKDEP) does not endorse the use of the MDRD equation for patients that are not between the ages of 18 and 70, are , have extremes of body size, muscle mass, or nutritional status, or are non- or non-. According to the National Kidney Foundation, irrespective of diagnosis, the stage of the disease is based on the level of kidney function: Stage Description GFR(mL/min/1.73 m(2)) 1 Kidney damage with normal or decreased GFR 90 2 Kidney damage with mild decrease in GFR 60-89 3 Moderate decrease in GFR 30-59 4 Severe decrease in GFR 15-29 5 Kidney failure <15 (or dialysis) 23 Troponin-I testing on Plasma Separator Tubes (PST) has a known false positive rate of 0.20-0.40%. All positive troponins reflex immediate secondary confirmatory testing. 24 Please note: The following may produce a false positive D Dimer test: - Rheumatoid factor greater than 60 IU/ml - Plasma hemoglobin greater than 0.05 gm/dl - Bilirubin greater than 50 mg/dl - Lipids greater than 1000 mg/dl - FDP greater than 20 ug/ml Procedures Date Code Description Status 07/28/2016 [id number] Mammogram Completed 09/20/2015 [id number] Colonoscopy Completed 07/26/2015 [id number] Mammogram Completed 02/25/2011 [id number] Bone Mineral Density Test Completed 02/25/2011 [id number] Mammogram Completed 11/28/2008 [id number] Mammogram Completed 06/22/2007 [id number] Mammogram Completed Medical Devices Description No Information Available Encounters Type Date Location Provider Dx Diagnosis Office Visit 09/14/2018 [facility] Internal Fatou Coker, Z01.419 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 exam (general) (routine) w/o abn findings R07.89 Other chest pain Office Visit 08/13/2018 10:40a [facility] Internal Fatou Coker, R07.89 Other chest Medicine - Ccmob N.P. pain D64.9 Anemia, unspecified R14.0 Abdominal distension (gaseous) Office Visit 07/12/2018 11:40a [facility] Internal Fatou Coker, R32 Unspecified urinary Medicine - Ccmob N.P. incontinence Assessments Date Code Description Provider 11/09/2018 Z00.00 Encounter for general adult medical Deena Santoyo MD examination without abnormal findings 11/09/2018 R32 Unspecified urinary incontinence Deena Santoyo MD 11/09/2018 K59.00 Constipation, unspecified Deena Santoyo MD 09/14/2018 Z01.419 Encounter for gynecological examination Fatou Coker N.P. (general) (routine) 09/14/2018 R07.89 Other chest pain Fatou Coker N.P. 08/25/2018 D64.9 Anemia, unspecified Nurse Visit A 08/13/2018 R07.89 Other chest pain Fatou Coker, N.P. 08/13/2018 D64.9 Anemia, unspecified Fatou Coker, N.P. 08/13/2018 R14.0 Abdominal distension (gaseous) Fatou Coker, N.P. 07/12/2018 R32 Unspecified urinary incontinence Fatou Coker N.P. Plan of Treatment Future Appointment(s):11/16/2018 10:30 am - Brianda Vance M.D. at [facility]11/16/2018 10:00 am - [place] [facility] at [facility]11/09/2018 - Deena Santoyo MDZ00.00 Encounter for general adult medical examination without abnormal findingsComments:You are due for breast cancer screening. To that effect, I have ordered the appropriate tests or referralsYour cholesterol profile and other labs are due, so please go for fasting blood draw and I will send you a letter with results within 2 weeks.Remember to wear sunscreen and see your dentist regularly.For optimum health, I recommend some form of regular exercise and integrating a lot of plant -based foods into your daily diet.Follow up:Physical in 1 yearR32 Unspecified urinary incontinenceComments:I am referring you to a manager food beverage for treatment of bladder leakageReferral:Abby Sotomayor MD, cable installer repairer helper/Phys/TjeanK52.00 Constipation, unspecifiedComments:Your constipation is making bladder leakage worse, so I am changing Miralax to a daily dose. Use lactulose if you do not have a bowel movement after 3 days Functional Status Description No Information Available Mental Status Description No Information Available Referrals Refer to Reason for Referral Status Appt Date Abby Sotomayor MD Patient with cystocele causing urinary Created incontinence, she is not interested or able to undergo pelvic floor PT. Already on oxybutynin [address], [place] [address] [phone]
--- OUTSIDE RECORDS SUMMARY | 2018-11-20 15:03 | XMS REPORT | Continuity of Care Document ---
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 Onset: 01/16/2011 Anemia Zeny Villegas M.D. Onset: 01/16/2011 Anxiety state Zeny Villegas M.D. Onset: 01/16/2011 Social History Type Date Description Comments Sex Unknown Tobacco Use Start: Unknown End: Former Cigarette Smoker Unknown Smoking Status Reviewed: 11/11/18 Former Cigarette Smoker ETOH Use Has consumed alcohol in the past Recreational Drug Use Denies Drug Use Tobacco Use Start: Unknown End: Patient is a former smoker Unknown Exercise Type/Frequency Does not exercise Allergies, Adverse Reactions, Alerts Description No Known Drug Allergies Medications Active Medications SIG Qnty Indications Ordering Date Provider Oxybutynin Chloride 1 po qd 30tabs R32 Caryn Antunez, 11/11/2018 [facility] H[facility] RECEIVING CLERK-Cde 5mg Tablets ER 24HR Gas Relief Extra Take One Capsule By pedro luis Coker, 11/05/2018 Strength Mouth Four Times A [...] 5mg Tablets Triamcinolone apply to dry skin 60units Fatou Coker, 05/22/2018 Acetonide once or twice daily N.P. 0.1% Lotion SM Anti-Diarrheal Take One Tablet By 30tabs Fatou Coker, 05/11/2018 2mg Mouth After Each N.P. Tablets Loose Stool Maximum Daily Dose = Eight Tablets Depend Underwear For 1 pair twice daily 60units Fatou Coker, 03/30/2018 Wom Men Large as needed N.P. Maximum Absorbency incontinence. [facility] [place] [facility] Pad to apply prn back 1units Fatou Coker, 02/24/2018 Moist/Dry pain N.P. Pads Nystop after cleansing and 30un Fatou Coker, 12/17/2017 [id number]/GM drying the affected N.P. Powder area, apply [...] HCL 1 by mouth at 30tabs Fatou Andersonbuck, 09/05/2015 10mg bedtime as needed N.P. Tablets allergies Ondansetron dissolve 1 tablet 20tabs Fatou Andersonbuck, 04/24/2015 4mg on tongue every 6-8 N.P. Tablets Dispers hours as needed for vomiting Colace 1 by mouth twice a 180caps Fatou Andersonbuck, 12/01/2014 100mg Capsules day as needed N.P. constipation Maalox Max 10 milliliters 355ml Fatou Varbuck, every 4 hours as N.P. [phone]/5ML needed Suspension Pramoxine HCL [facility] d/c summary Unknown 1% Foam 01/06/15- Pramoxine HCl vaginal wipes 1%- apply to affected area 3-4 times a day for vaginal itching. Klonopin 1 by mouth qd Unknown 0.5mg Tablets Hydroxyzine HCL 1 tab by mouth 60tabs Fatou Andersonbuck, 25mg every night may N.P. Tablets repeat after 30 min Gabapentin take 1 capsule by 60caps Fatou Andersonbuck, 100mg mouth every in the N.P. Capsules morning 1 by mouth at noon Lotrisone apply externally Unknown 1-0.05% bid-tid Cream History Medications Tolterodine Tartrate One po bid 60tabs R32 Fatou Andersonbuck, 07/12/2018 - N.P. 07/20/2018 2mg Tablets Oxybutynin Chloride 2 tablets po qd 60tabs Fatou Varn, 06/16/2018 - ER N.P. 07/02/2018 5mg Tablets ER 24HR Oxybutynin Chloride 1 by mouth every 30tabs Fatou Varn, 06/07/2018 - ER day N.P. 07/12/2018 10mg Tablets ER 24HR Ditropan XL 1 by mouth every 30tabs Fatou Justinn, 06/04/2018 - 10mg day N.P. 06/07/2018 Tablets ER 24HR Immunizations CPT Code Status Date Vaccine Lot # [id number] Given 12/09/2016 Influenza Virus Vaccine, Quadrivalent, Split, Preservative Free [id number] Given 07/08/2013 Tdap - Tetanus/Diptheria/Acellular Pertussis [id number] Given 01/26/2012 Fluvirin Im 3Yrs And Older 80044 Given 01/16/2011 Influenza Virus 3Yrs & Over [id number] Given 04/10/2009 Influenza Virus Vaccine, Pandemic Formulation [id number] Given 04/10/2009 Administration Swine Flu Shot Vital Signs Date Vital Result Comment 11/11/2018 1:49pm Height 65.25 inches 5'5.25" Weight 149.12 lb Heart Rate 70 /min BP Systolic 129 mmHg BP Diastolic 79 mmHg O2 % BldC Oximetry 99 % BMI (Body Mass Index) 24.6 kg/m2 11/09/2018 9:00am Height 65.25 inches 5'5.25" Weight 147.38 lb Heart Rate 84 /min BP Systolic Sitting 110 mmHg Rue reg cuff BP Diastolic Sitting 75 mmHg Rue reg cuff Body Temperature 97.0 F O2 % BldC Oximetry 97 % BMI (Body Mass Index) 24.3 kg/m2 Results Test Date Facility Test Result H/L Range Note Laboratory test [facility] Cytology SEE RESULT 1 , 2 finding [address] [place] [address] [phone] Laboratory test Biological Science Technician [facility] In House Hemosure negative finding 9 Non-Medicare CBC Auto Diff [facility] White Blood 7.4 10^3/uL Normal 3.5-10.8 [address] [place] [address] [phone] Red Blood Count 5.55 10^6/uL High 3.70-4.87 [...] Blood Cells % 0.1 Laboratory test 08/17/2018 [facility] Ferritin 25.2 ng/mL Normal 11-307 5 finding [address] [place] [address] [phone] Iron & Iron 08/17/2018 [facility] Iron 73 g/dL Normal 50- 212 Binding Capacity [address] [place] [address] [phone] Unsaturated Iron Binding < 304 g/dL Total Iron Binding Capacity 319 g/dL Normal 250-450 Transferrin 228 mg/dL Normal 203-362 % Iron Saturation 23 % Normal 15-55 Inr/Protime 08/06/2018 [facility] Inr 1.03 Normal 0.82-1.09 6 [address] [place] [address] [phone] CBC Auto Diff 08/06/2018 [facility] White Blood 5.4 Normal 3.5 -10.[address] Count 10^3/[place] [address] [phone] Red Blood Count 4.97 10^6/uL High 3.70-4.87 [...] Blood Cells % 0.1 Comp Metabolic 08/06/2018 [facility] Sodium 139 mmol/L Normal 135-[address] [place], [place] [id number] [phone] Potassium 4.7 mmol/L Normal 3.5-5.0 Chloride 106 [...] Egfr 86.4 >60 8 Laboratory test 08/06/2018 [facility] Troponin-I 0.00 <0.[address] (TnI) ng/[place] [address] [phone] Urine Culture 07/12/2018 [facility] Urine Culture SEE 10, And [address] RESULT 11 [place] [address] BELOW [phone] CBC Auto Diff 07/03/2018 [facility] White Blood 5.6 Normal 3.5 -10.[address] Count 10^3/uL [place], [place] [address] [phone] Red Blood Count 5.47 10^6/uL High 3.70-4.87 [...] Blood Cells % 0.1 Laboratory test 07/03/2018 [facility] Lactic Acid 2.0 mmol/L Normal 0.5-2.0 12 finding [address] [place] [address] [phone] CKMB 07/03/2018 [facility] CKMB ng/mL 1.1 ng/mL Normal 0.6- 6.3 [address] [place] [address] [phone] Laboratory test 07/03/2018 [facility] Magnesium 2.2 mg/dL Normal 1.9-2.7 finding [address] [place] [address] [phone] Creatine Kinase(CK) 222 U/L Normal 10-223 Troponin-I (TnI) 0.00 ng/mL <0.04 13 Comp Metabolic 07/03/2018 [facility] Sodium 140 mmol/L Normal 135-145 Panel [address] [place] [address] [phone] Potassium 4.2 mmol/L Normal 3.5-5.0 Chloride 106 [...] >60 14 Influenza A & B 07/03/2018 [facility] Influenza A NEGATIVE Negative [address] [place] [address] [phone] Influenza B Molecular NEGATIVE Negative Laboratory test 07/03/2018 [facility] Partial 32.9 Normal 26.0 -36.[address] [place] [address] Time PTT [phone] B-Type Natriuretic Peptide BNP 10 pg/mL <=100 D Dimer Quantitative < 200 ng/mL Normal Less Than 230 16 Inr/Protime 07/03/2018 [facility] Inr 0.95 Normal 0.77-1.[address] [place] [address] [phone] Laboratory test 07/03/2018 [facility] Troponin-I 0.00 <0.04 [address] (TnI) ng/[place] [address] [phone] Laboratory test 07/01/2018 [facility] Troponin-I 0.00 <0.04 [address] (TnI) ng/[place] [address] [phone] Urinalysis 07/01/2018 [facility] Urine Straw Profile [address] [place] [address] [phone] Urine Appearance Clear Urine Specific [place] 1.004 Low 1.010-1.030 Urine pH 8.0 Normal [...] Present Abnormal Absent Urine Culture And 07/01/2018 [facility] Urine SEE RESULT [address] [place] [address] [phone] CBC Auto Diff 07/01/2018 [facility] White Blood 6.0 10^3/uL Normal 3.5- [address] Count 10.8 [place], [place] [address] [phone] Red Blood Count 5.36 10^6/uL High 3.70-4.87 [...] Blood Cells % 0.1 Laboratory test 07/01/2018 [facility] Lactic Acid 1.1 mmol/L Normal 0.5-2.0 [address] [place] [address] [phone] Comp Metabolic 07/01/2018 [facility] Sodium 141 mmol/L Normal 135-[address] [place] [address] [phone] Potassium 4.1 mmol/L Normal 3.5-5.0 Chloride 106 [...] >60 Egfr 81.7 >60 22 Laboratory 07/01/2018 [facility] Troponin-I (TnI) 0.00 <0.04 23 test finding [address] ng/mL [place] [address] [phone] Laboratory 07/01/2018 [facility] D Dimer < 200 Normal Less 24 test finding [address] Quantitative ng/mL Than 230 [place] [address] [phone] 1 [id number] 2 SEE RESULT BELOW Name: RENEE LINDSAY E : [address]: Fatou Coker BIOMEDICAL PHOTOGRAPHER Acct: [id number] Unit: [id number] AGE: 63 Location: [facility] Re09/14/18 SEX: F Status: REG REF SPEC: [id number] LADI: 09/14/18-[address] [facility] [address]: Fatou Coker NP REQ: [id number] RECD: 09/14/18 STATUS: SOUT _ ORDERED: TP IMAGE ANALYS, HPV/Thin Prep, HPV 16/18 GENE COMMENTS: [id number] Negative for Intraepithelial lesion or Malignancy Date [...] Signed by and Reported on: TURNER Bernal(ASCP) [id number] This Pap test was evaluated with the assistance of the ThinPrep Test Imaging System. Due to cytologic findings at the health program manager microscope, comprehensive manual rescreening by a Gold Leaf Printer may be required. The Pap Smear is [...] years. END OF REPORT DEPARTMENT OF PATHOLOGY, [address] [place] [address] Rob Kim M.D. Director [facility] # [id number] 3 [id number] [place] 4 Consistent with Previous Results Reported on 08/06/18 5 [id number] [place] 6 Standard intensity warfarin therapeutic range: [...] immediately to secondary confirmatory testing. Using the [employer] DxI 800 Access Immunoassay systems, the 99th percentile upper reference limit was demonstrated to be < 0.03 ng/mL. 10 [id number] 11 SEE RESULT BELOW Name: RENEE LINDSAY : [address]: Fatou Coker NP Acct: [id number] Unit: [id number] AGE: 62 Location: [facility] Re07/12/18 SEX: F Status: REG REF SPEC: [id number] LADI: 07/12/18-[address] [facility] [address]: Fatou Coker NP REQ: [id number] RECD: 07/12/18 STATUS: COMP _ SOURCE: URINE SPDESC: ORDERED: Urine Culture COMMENTS: [id number] Urine Source: Random Procedure Result Reported Site Urine Culture Final 07/13/18- 1635 ML No growth of clinically significant organisms * ML - Main Lab . END OF REPORT DEPARTMENT OF PATHOLOGY, [address] [place] [address] Rob Kim M.D. Director [facility] # [id number] 12 [facility] Severe Sepsis and Septic Shock Management Bundle [...] 5 Kidney failure <15 (or dialysis) 15 Leather Stretcher: [id number] Please note: The following may produce [...] [address]: Chalino Trejo MD Acct: [id number] Unit: [id number] AGE: 62 Location: ED Re07/01/18 SEX: F Status: REG ER SPEC: [id number] LADI: 07/01/[address] [facility] [address]: Chalino Trejo MD REQ: [id number] RECD: 07/01/18 STATUS: SADIA GOMEZ DR: Fatou Coker BIOMEDICAL PHOTOGRAPHER _ SOURCE: URINE SPDESC: ORDERED: Urine Culture Procedure Result Reported Site Urine Culture Final 07/02/18- 1406 ML No growth of clinically significant organisms * ML - Main Lab . END OF REPORT DEPARTMENT OF PATHOLOGY, [address] [place] [address] Rob Kim M.D. Director [facility] # [id number] 20 Consistent with Previous Results Reported on 05/17/17 21 [facility] Severe Sepsis and Septic Shock Management Bundle [...] ug/ml Procedures Date Code Description Status 07/28/2016 47075551 Mammogram Completed 09/20/2015 [id number] Colonoscopy Completed 07/26/2015 [id number] Mammogram Completed 02/25/2011 [id number] Bone Mineral Density Test Completed 02/25/2011 [id number] Mammogram Completed 11/28/2008 [id number] Mammogram Completed 06/22/2007 [id number] Mammogram Completed Medical Devices Description No Information Available Encounters Type Date Location Provider Dx Diagnosis Office Visit 09/14/2018 [facility] Internal Fatou Coker, Z01.419 Encntr for tail puller 10:20a Medicine - Ccmob N.P. exam (general) (routine) w/o abn findings R07.89 Other chest pain Office Visit 08/13/2018 10:40a [facility] Internal Fatou Coker, R07.89 Other chest Medicine - Ccmob N.P. pain D64.9 Anemia, unspecified R14.0 Abdominal distension (gaseous) Office Visit 07/12/2018 11:40a [facility] Internal Fatou Coker, R32 Unspecified urinary Medicine - Ccmob N.P. incontinence Assessments Date Code Description Provider 11/11/2018 R32 Unspecified urinary incontinence KRISTEL Kent-e 11/09/2018 Z00.00 Encounter for general adult medical Deena Santoyo MD examination without abnormal findings 11/09/2018 R32 Unspecified urinary incontinence Deena Santoyo MD 11/09/2018 K59.00 Constipation, unspecified Deena Santoyo MD 09/14/2018 Z01.419 Encounter for gynecological examination Fatou Coker N.P. (general) (routine) 09/14/2018 R07.89 Other chest pain Buck Luna.PLucretia 08/25/2018 D64.9 Anemia, unspecified Nurse Visit A 08/13/2018 R07.89 Other chest pain Fatou Coker N.PLucretia 08/13/2018 D64.9 Anemia, unspecified Fatou Coker N.PLucretia 08/13/2018 R14.0 Abdominal distension (gaseous) Buck Luna.PLucretia 07/12/2018 R32 Unspecified urinary incontinence Fatou Coker N.P. Plan of Treatment Future Appointment(s):12/02/2018 1:30 pm - Temi Kent at [facility]11/16/2018 10:30 am - Brianda Vance M.D. at [facility]11/16/2018 10:00 am - [facility] Schedule at [facility]2018 - Riaz Kent32 Unspecified urinary incontinenceNew Medication: Oxybutynin Chloride ER 5 mg - 1 po qdComments:Please take this medication every day. I would like to see you in3-4 weeks to see how things are working for you.Follow up:3-4 weeks for medication check Functional Status Description No Information Available Mental Status Description No Information Available Referrals Refer to Dr Reason for Referral Status Appt Date Abby Sotomayor MD Patient with cystocele causing urinary Sent 11/11/2018 incontinence, she is not interested or able to undergo pelvic floor PT. Already on oxybutynin [address] [place] [address] [phone]
[2018-11-20 15:36] VITALS: BP 120/79
== END 2018-11-20 15:54 | disposition home or self-care (01) ==
LOC: ED 14:05
DX: R07.9 Chest pain, unspecified (principal); K29.70 Gastritis, unspecified, without bleeding; D64.9 Anemia, unspecified; K21.9 Gastro-esophageal reflux disease without esophagitis; F41.9 Anxiety disorder, unspecified; F32.9 Major depressive disorder, single episode, unspecified; F20.9 Schizophrenia, unspecified; Z87.891 Personal history of nicotine dependence; Z79.899 Other long term (current) drug therapy; Z88.2 Allergy status to sulfonamides
CPT/HCPCS: 36415; 71046; 80053; 84484; 85025; 93005; 99283; A9270-GY

== ENCOUNTER 2018-11-21 03:12 | Emergency (ER) | payer OTHER ==
--- NOTE | 2018-11-21 03:21 | ED ---
HPI Chest Pain - HPI Summary HPI Summary: This patient is a 63 year old F presenting to [facility] by EMS with a chief complaint of chest pain for the last few hours. Patient reports CP, and abdominal pain. Patient denies SOB, dizziness, and lightheadedness. Per triage, the patient rates the pain 9/10 in severity. Symptoms aggravated by deep breaths. Pt has an Hx of gastritis. Pt was seen in the ED on 11/21/18 and was Dx with Gastritis. - History of Current Complaint Chief Complaint: EDChestPainROMI Time Seen by Provider: 11/21/18 03:14 Hx Obtained From: Patient Onset/Duration: Started Hours Ago Timing: Constant Initial Severity: Severe Current Severity: Severe Pain Intensity: 9 Pain Scale Used: 0-10 Numeric Chest Pain Location: Lower Sternal Chest Pain Radiates: Yes Chest Pain Radiates To:: Epigastric Aggravating Factor(s): Deep Breaths Alleviating Factor(s): Nothing Associated Signs and Symptoms: Positive: Chest Pain, Abdominal Pain. Negative: Dizziness, Shortness of Breath, Lightheadedness - Additional Pertinent History Primary Care Physician: FABIOLA - Allergy/Home Medications Allergies/Adverse Reactions: Allergies Allergy/AdvReac Type Severity Reaction Status Date / Time Sulfa (Sulfonamide Allergy Vomiting Verified 11/21/18 03:22 Antibiotics) ENVIRONMENTAL Allergy SINUS Uncoded 11/21/18 03:22 SYMPTOMS Home Medications: Home Medications Oxybutynin Chloride [Oxybutynin Chloride ER] 5 mg PO DAILY 11/21/18 [History Confirmed 11/21/18] Simethicone TAB* [Mylicon TAB*] 125 mg PO Q6HR PRN 11/21/18 [History Confirmed 11/21/18] hydrOXYzine HCL TAB* [Atarax 25 MG TAB*] 25 mg PO BID 11/21/18 [History Confirmed 11/21/18] PMH/Surg Hx/FS Hx/Imm Hx Endocrine/Hematology History: Reports: Hx Anemia Denies: Hx Diabetes Cardiovascular History: Reports: Hx Angina Denies: Hx Congestive Heart Failure, Hx Coronary Artery Disease, Hx Hypercholesterolemia, Hx Hypertension, Hx Myocardial Infarction, Hx Pacemaker/ ICD, Hx Valvular Heart Disease Respiratory History: Denies: Hx Asthma, Hx Chronic Obstructive Pulmonary Disease (COPD) GI History: Reports: Hx Gastroesophageal Reflux Disease, Hx Ulcer, Other GI Disorders - GASTRITIS- TAKES MAALOX FOR GASTRITIS History: Denies: Hx Renal Disease Musculoskeletal History: Reports: Hx Arthritis - HANDS AND FEET Sensory History: Reports: Hx Contacts or Glasses - GLASSES Denies: Hx Hearing Aid Opthamlomology History: Reports: Hx Contacts or Glasses - GLASSES Neurological History: Denies: Hx CVA Psychiatric History: Reports: Hx Anxiety, Hx Depression, Hx Schizophrenia Denies: Hx Eating Disorder, Hx Panic Disorder - Cancer History Cancer Type, Location and Year: [facility] CONCERNED BUT BIOPSY NEGATIVE,PER PT. Hx Chemotherapy: No Hx Radiation Therapy: No - Surgical History Surgery Procedure, Year, and Place: biopsy on breast-DR. DIAZ'S OFFICE, D&C- [facility] [place] Hx Anesthesia Reactions: No - Immunization History Date of Tetanus Vaccine: unknown Date of Influenza Vaccine: unknown Infectious Disease History: Denies: History Other Infectious Disease - Family History Known Family History: Positive: Seizure Disorder, Other - Sister has CA. Negative: Cardiac Disease, Hypertension, Diabetes Family History: Bipolar, schizophrenia, depression - Social History Alcohol Use: None Hx Substance Use: No Substance Use Type: Reports: None Hx Tobacco Use: Yes Smoking Status (MU): Former Smoker Amount Used/How Often: 4-5 CIGARETTES PER DAY X UNKNOWN AMOUNT OF YEARS Have You Smoked in the Last Year: No Review of Systems Positive: Chest Pain Negative: Shortness Of Breath Positive: Abdominal Pain Neurological: Other - neg - dizziness, and lightheadedness All Other Systems Reviewed And Are Negative: Yes Physical Exam - Summary Physical Exam Summary: Appearance: Well-appearing, Well-nourished, lying in bed comfortably Skin: Warm, dry, no obvious rash Eyes: sclera anicteric, no conjunctival pallor ENT: mucous membranes moist, pharynx appears normal Neck: Supple, nontender Respiratory: Clear to auscultation, no signs of respiratory distress Cardiovascular: Normal S1, S2. No murmurs. Normal distal pulses in tibial and radial bilaterally. Abdomen: Soft, nontender, normal active bowel sounds present Musculoskeletal: Normal, Strength/ROM Intact Neurological: A&Ox3, awake and alert, mentation is normal, speech is fluent and appropriate Psychiatric: affect is normal, does not appear anxious or depressed Triage Information Reviewed: Yes Vital Signs On Initial Exam: Initial Vital Signs Temp 97.4 F 11/21/18 03:19 Pulse 70 11/21/18 03:19 Resp 16 11/21/18 03:19 BP 145/86 11/21/18 03:19 Pulse Ox 98 11/21/18 03:19 Vital Signs Reviewed: Yes Diagnostics - Laboratory Result Diagrams: 11/21/18 03:31 11/21/18 03:31 Lab Statement: Any lab studies that have been ordered have been reviewed, and results considered in the medical decision making process. - EKG 0324 Cardiac Rate: NL - 77 bpm EKG Rhythm: Sinus Rhythm Summary of EKG Findings: An EKG at 0324 reveals NSR at 77 BPM, P waves, QRS complex, and T waves are within normal limits, T waves and intervals are normal , no ischemic changes. This is a normal EKG. Chest Pain Course/Dx - Course Course Of Treatment: This patient is a 63 year old F presenting to [facility] by EMS with a chief complaint of chest pain for the last few hours. Patient reports CP , and abdominal pain. Patient denies SOB, dizziness, and lightheadedness. Pt has an Hx of gastritis. Pt was seen in the ED on 11/21/18 and was Dx with Gastritis. Per triage, the patient rates the pain 9/10 in severity. Symptoms aggravated by deep breaths. Physical exam findings are nml. Blood work obtained. RBC is 5.10, Hbg is 11.3, MCV is 70, MCH is 22, RDW is 16, Glucose is 101, Calcium is 8.4. Troponin is 0.00. An EKG at 0324 reveals NSR at 77 BPM, P waves, QRS complex, and T waves are within normal limits, T waves and intervals are normal, no ischemic changes. This is a normal EKG. In the ED course the patient was given Maalox, and lidocaine. Pt will be signed out to Dr. Edwards at shift change at 0700 on 11/21/18, pending second troponin. - Diagnoses Provider Diagnoses: Abdominal pain, Constipation Discharge ED - Sign-Out/Discharge Documenting (check all that apply): Sign-Out Patient Signing out patient TO: Basil Edwards - at shift change at 0700 on 11/21/18, pending second troponin. Receiving patient FROM: Chalino Nazario Patient Received Moderate/Deep Sedation with Procedure: No - Discharge Plan Condition: Stable Disposition: HOME Patient Education Materials: Constipation (ED), Abdominal Pain (ED), Cardiac Stress Test (DC) Referrals: Fatou Coker NP [Primary Care Provider] - 3 Days Additional Instructions: Follow up with your primary care physician in 1-3 days. Be sure to attend your stress test on Thursday. RETURN TO THE EMERGENCY DEPARTMENT FOR CHANGING OR WORSENING SYMPTOMS. - Billing Disposition and Condition Condition: STABLE Disposition: Home - Attestation Statements Document Initiated by Dee: Yes Documenting Scribe: Roxann Bateman Provider For Whom Dee is Documenting (Include Credential): Chalino Nazario MD Scribe Attestation: Roxann Mckeon scribed for Chalino Nazario MD on 11/22/18 at 0619. Scribe Documentation Reviewed: Yes Provider Attestation: The documentation as recorded by the Roxann mueller accurately reflects the service I personally performed and the decisions made by , Chalino Nazario MD Status of Scribe Document: Viewed
[2018-11-21] MEDS ORDERED: Lidocaine 2% VISCOUS* 15 ML UDC PO ONE (03:22)
[2018-11-21] MEDS ORDERED: Al Hydrox/Mg Hydrox/Simet LIQ* 30 ML UDC PO ONE (03:22)
[2018-11-21 03:42] LABS: ABS Basophils 0.1 10^3/ul (0-0.2); ABS Eosinophils 0.3 10^3/ul (0-0.6); ABS Lymphocytes 1.9 10^3/ul (1.0-4.8); ABS Monocytes 0.4 10^3/ul (0-0.8); ABS Neutrophils 3.9 10^3/ul (1.5-7.7); Eosinophil % 4.9 %; Hematocrit 36 % (35-47); Hemoglobin 11.3 g/dL (12.0-16.0); Mean Corpuscular HGB Conc 32 g/dL (31-36); Mean Corpuscular Hemoglobin 22 pg (27-31); Mean Corpuscular Volume 70 fL (80-97); Mean Platelet Volume 9.1 fL (7.4-10.4); Platelet Count 223 10^3/uL (150-450); Red Cell Distribution Width 16 % (10-15); White Blood Count 6.6 10^3/uL (3.5-10.8)
[2018-11-21 03:54] LABS: Albumin 3.7 g/dL (3.2-5.2); Albumin/Globulin Ratio 1.2 (1-3); BUN/Creatinine Ratio 12.5 (8-20); Calcium 8.4 mg/dL (8.6-10.3); EGFR African American 78.3 (>60); EGFR Non-African American 64.7 (>60); Globulin 3.2 g/dL (2-4); Potassium 3.5 mmol/L (3.5-5.0); Total Bilirubin 0.3 mg/dL (0.2-1.0); Total Protein 6.9 g/dL (6.4-8.9)
--- NOTE | 2018-11-21 07:16 | ED ---
Progress - Progress Note Progress Note: This patient is a 63-year old F presenting to [facility] with chest pain. This patient is a sign-out from Dr. Chalino Nazario to Dr. Basil Edwards at 0700 on 11/21/18 pending second troponin. Patient is evaluated by Dr. Edwards at 0730. Patient describes a sharp pain in her epigastric chest. Patient has a stress test ordered by her PCP in two days for her current pain. Patient was seen here yesterday and was sent home with Maalox, which she reports helps her symptoms somewhat. Patient denies drinking alcohol or smoking tobacco. PMHx of gastritis. She states this feels like her gastritis, and she also reports constipation. Patients last bowel movement was a few days ago, and the pain feels like her usual constipation. - Results/Orders Results/Orders: Abdomen XR revealed: Gas and stool seen throughout the length of the bowel without radiographically apparent pathologic dilatation. Dr. Edwards has reviewed this radiology report. Re-Evaluation - Re-Evaluation First Eval Re-Evaluation Time: 09:07 Comment: Patient reports her pain is still a 9/10, so I will try to control it in the ED. Patient reports her son recently. I will give patient morphine and order a D-dimer. Second Eval Re-Evaluation Time: 10:37 Change: Improved Comment: Patient reports feeling better. Course/Dx - Course Course Of Treatment: This patient is a 63-year old F presenting to [facility] with chest pain. This patient is a sign-out from Dr. Chalino Nazario to Dr. Basil Edwards at 0700 on 11/21/18 pending second troponin. In the ED course, patient received magnesium citrate and morphine. Abdomen XR revealed: Gas and stool seen throughout the length of the bowel without radiographically apparent pathologic dilatation. D-dimer negative. I discussed results with patient, and she reports feeling better. She is hemodynamically stable and safe for discharge. Strict return precautions given and she will otherwise follow up with her PCP. Patient will be discharged home with dx of abdominal pain and constipation. Patient understands and agrees with this plan. - Diagnoses Provider Diagnoses: Abdominal pain, Constipation Discharge ED - Sign-Out/Discharge Documenting (check all that apply): Patient Departure - Discharge, Receiving Sign-Out Receiving patient FROM: Chalino Nazraio Patient Received Moderate/Deep Sedation with Procedure: No - Discharge Plan Condition: Stable Disposition: HOME Patient Education Materials: Constipation (ED), Abdominal Pain (ED), Cardiac Stress Test (DC) Referrals: Fatou Coker NP [Primary Care Provider] - 3 Days Additional Instructions: Follow up with your primary care physician in 1-3 days. Be sure to attend your stress test on Thursday. RETURN TO THE EMERGENCY DEPARTMENT FOR CHANGING OR WORSENING SYMPTOMS. - Billing Disposition and Condition Condition: STABLE Disposition: Home - Attestation Statements Document Initiated by Dee: Yes Documenting Scribe: Anshul Hall Provider For Whom Dee is Documenting (Include Credential): Basil Edwards MD Scribe Attestation: IAnshul, scribed for Basil Edwards MD on 11/21/18 at 1801. Scribe Documentation Reviewed: Yes Provider Attestation: The documentation as recorded by the Anshul mueller accurately reflects the service I personally performed and the decisions made by me, Basil Edwards MD Status of Scribe Document: Viewed
[2018-11-21] MEDS ORDERED: Magnesium CITRATE* 300 ML BTL PO ONE (08:58)
[2018-11-21] MEDS ORDERED: Morphine 4 MG/ML VIAL (1 ml) 4 MG/ML VIAL IV ONE (09:06)
[2018-11-21] MEDS ORDERED: Ondansetron INJ* 2 MG/ML VIAL IV ONE (09:09)
[2018-11-21 10:45] VITALS: BP 162/77
== END 2018-11-21 10:45 | disposition home or self-care (01) ==
LOC: ED 03:12
DX: K59.00 Constipation, unspecified (principal); D64.9 Anemia, unspecified; F41.9 Anxiety disorder, unspecified; F20.9 Schizophrenia, unspecified; Z87.891 Personal history of nicotine dependence; Z79.899 Other long term (current) drug therapy; Z88.2 Allergy status to sulfonamides
CPT/HCPCS: 36415; 74019; 80053; 83690; 84484; 85025; 85379; 93005; 96374; 96375; 99284; A9270-GY; J2270; J2405

== ENCOUNTER 2019-01-09 08:59 | Observation (INO) | payer OTHER ==
--- NOTE | 2019-01-09 09:17 | ED ---
HPI Chest Pain - HPI Summary HPI Summary: 63 year old female presents to [facility] by EMS with a chief complaint of chest pain that started this morning when she woke up. She describes the pain as sharp and intermittent, localized in the center of her chest, with a severity of 7/10. The pain has improved since onset. It is worse upon exertion. She reports experiencing similar pain in the past. Patient also reports shortness of breath and occasional productive cough. Pt denies any fever, chills, diaphoresis, erythema of eyes, sore throat, abdominal pain, N/V, dysuria, hematuria, myalgia, edema, rash, pain in her legs, or dizziness. She was given aspirin and NTG by EMS. She reports that she is recovering from a cold and has a history of allergies. She is not on any hormones. No PMHx of CAD, HTN, HLD, or DM. Pt does not smoke tobacco, drink alcohol, or do recreational drugs. No family history of CAD, HTN, HLD, or DM. FHx of CA. - History of Current Complaint Chief Complaint: EDChestPainROMI Hx Obtained From: Patient Onset/Duration: Started Minutes Ago Timing: Intermittent, Lasting Minutes Initial Severity: Severe Current Severity: Moderate Pain Intensity: 7 Pain Scale Used: 0-10 Numeric Chest Pain Location: Discrete at:, Mid Sternal Chest Pain Radiates: No Character: Sharp/Stabbing Aggravating Factor(s): Exertion Associated Signs and Symptoms: Positive: Chest Pain, Shortness of Breath, Productive Cough - Additional Pertinent History Primary Care Physician: [id number] - Allergy/Home Medications Allergies/Adverse Reactions: Allergies Allergy/AdvReac Type Severity Reaction Status Date / Time Sulfa (Sulfonamide Allergy Vomiting Verified 01/09/19 09:13 Antibiotics) ENVIRONMENTAL Allergy SINUS Uncoded 01/09/19 09:13 SYMPTOMS Home Medications: Home Medications Estradiol [Imvexxy] 1 insert VAGINAL SEE INSTRUCTIONS 01/09/19 [History Confirmed 01/09/19] Polyethylene Glycol 3350 [Miralax] 17 gm PO DAILY PRN 01/09/19 [History Confirmed 01/09/19] Triamcinolone 0.1% CREAM(NF) [Kenalog 0.1% Cream (NF)] 1 applic TOPICAL BID PRN 01/09/19 [History Confirmed 01/09/19] clonazePAM [Clonazepam] 0.5 mg PO TID PRN MDD 3 tabs 01/09/19 [History Confirmed 01/09/19] PMH/Surg Hx/FS Hx/Imm Hx Endocrine/Hematology History: Reports: Hx Anemia Denies: Hx Diabetes Cardiovascular History: Reports: Hx Angina Denies: Hx Congestive Heart Failure, Hx Coronary Artery Disease, Hx Hypercholesterolemia, Hx Hypertension, Hx Myocardial Infarction, Hx Pacemaker/ ICD, Hx Valvular Heart Disease Respiratory History: Denies: Hx Asthma, Hx Chronic Obstructive Pulmonary Disease (COPD) GI History: Reports: Hx Gastroesophageal Reflux Disease, Hx Ulcer, Other GI Disorders - GASTRITIS- TAKES MAALOX FOR GASTRITIS History: Denies: Hx Renal Disease Musculoskeletal History: Reports: Hx Arthritis - HANDS AND FEET Sensory History: Reports: Hx Contacts or Glasses - GLASSES Denies: Hx Hearing Aid Opthamlomology History: Reports: Hx Contacts or Glasses - GLASSES Neurological History: Denies: Hx CVA Psychiatric History: Reports: Hx Anxiety, Hx Depression, Hx Schizophrenia Denies: Hx Eating Disorder, Hx Panic Disorder - Cancer History Cancer Type, Location and Year: [facility] CONCERNED BUT BIOPSY NEGATIVE,PER PT. Hx Chemotherapy: No Hx Radiation Therapy: No - Surgical History Surgery Procedure, Year, and Place: biopsy on breast-DR. DIAZ'S OFFICE, [facility] [facility] [place] Anesthesia Reactions: No - Immunization History Date of Tetanus Vaccine: unknown Date of Influenza Vaccine: unknown Infectious Disease History: No Infectious Disease History: Denies: History Other Infectious Disease, Traveled Outside the [place] in Last 30 Days - Family History Known Family History: Positive: Seizure Disorder, Other - Sister has CA. Negative: Cardiac Disease, Hypertension, Diabetes Family History: Bipolar, schizophrenia, depression - Social History Alcohol Use: None Hx Substance Use: No Substance Use Type: Reports: None Hx Tobacco Use: Yes Smoking Status (MU): Former Smoker Amount Used/How Often: 4-5 CIGARETTES PER DAY X UNKNOWN AMOUNT OF YEARS Have You Smoked in the Last Year: No Review of Systems Negative: Fever, Chills, Skin Diaphoresis Negative: Erythema Negative: Sore Throat Positive: Chest Pain Positive: Shortness Of Breath, Cough Negative: Abdominal Pain, Vomiting, Nausea Negative: dysuria, hematuria Negative: Myalgia, Edema Negative: Rash Neurological: Negative - neg - dizziness All Other Systems Reviewed And Are Negative: Yes Physical Exam - Summary Physical Exam Summary: Constitutional: Well-developed, Well-nourished, Alert. (-) Distressed Skin: Warm, Dry HENT: Normocephalic; Atraumatic Eyes: Conjunctiva normal Neck: Musculoskeletal ROM normal neck. (-) JVD, (-) Stridor, (-) Tracheal deviation Cardio: Rhythm regular, rate normal, Heart sounds normal; Intact distal pulses; The pedal pulses are 2+ and symmetric. Radial pulses are 2+ and symmetric. (-) Murmur Pulmonary/Chest wall: Effort normal. (-) Respiratory distress, (-) Wheezes, (-) Rales Abd: Soft, (-) tenderness, (-) Distension, (-) Guarding, (-) Rebound Musculoskeletal: (-) Edema Lymph: (-) Cervical adenopathy Neuro: Alert, Oriented x3 Psych: Mood and affect Normal Triage Information Reviewed: Yes Vital Signs On Initial Exam: Initial Vitals Temp Pulse Resp BP Pulse Ox 98.4 F 91 18 142/76 98 01/09/19 09:03 01/09/19 09:03 01/09/19 09:03 01/09/19 09:03 01/09/19 09:03 Vital Signs Reviewed: Yes Procedures - Sedation Patient Received Moderate/Deep Sedation with Procedure: No Diagnostics - Vital Signs Vital Signs Temp Pulse Resp BP Pulse Ox 01/09/19 09:03 98.4 F 91 18 142/76 98 - Laboratory Result Diagrams: 01/09/19 09:35 01/09/19 09:35 Lab Statement: Any lab studies that have been ordered have been reviewed, and results considered in the medical decision making process. - Radiology CXR Radiology Interpretation Completed By: Radiologist Summary of Radiographic Findings: HYPERINFLATION. NO ACTIVE CARDIOPULMONARY DISEASE. An ED physician has reviewed this report. - EKG 0902 Cardiac Rate: NL - 83 bpm EKG Rhythm: Sinus Rhythm Summary of EKG Findings: EKG at 0902 shows sinus rhythm at 83 bpm. New TWI V3- V6. No STEMI. An ED physician has reviewed and interpreted this report. Re-Evaluation - Re-Evaluation First Eval Re-Evaluation Time: 10:22 Change: Improved Comment: Significant improvement to chest pain. Chest Pain Course/Dx - Course Course Of Treatment: 63 year old female presents by EMS with intermittent sharp chest pain in mid-sternum that does not radiate. Patient reports SOB and productive cough. She says she is recovering from a cold. Pt denies any fever, chills, erythema of eyes, sore throat, diaphoresis, leg pain, abdominal pain, N/ V, dysuria, hematuria, myalgia, edema, rash, or dizziness.No history of smoking , CAD, HTN, DM, or HLD. No FHx of CAD, HTN, DM, or HLD. 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 Physical exam normal. Laboratory results show RBC 5.00, Hgb 11.0, MCV 70, MCH 22, RDW 16, and hemoglobin A1c 5.7. CXR shows hyperinflation. No active cardiopulmonary disease. EKG at 0902 shows sinus rhythm at 83 bpm. New TWI V3-V6. No STEMI. Reeval at 1022 shows significant improvement to chest pain. Diagnosis is unspecified chest pain and abnormal EKG reading. At [address] Waldrop who agreed to accept patient for admission. - Diagnoses Provider Diagnoses: Chest pain, Abnormal EKG - Provider Notifications Discussed Care Of Patient With: Frankie Waldrop - hospitalist Time Discussed With Above Provider: 10:25 Instructed by Provider To: Admit As Inpatient - I spoke to Dr. Waldrop at 1025 and he accepts the patient for admission. Admit/Transition Orders Completed By ED Provider: Yes Discharge ED - Sign-Out/Discharge Documenting (check all that apply): Patient Departure - admit - Discharge Plan Condition: Stable Disposition: ADMITTED TO [facility] Referrals: Fatou Coker NP [Primary Care Provider] - - Attestation Statements Document Initiated by Scribe: Yes Documenting Scribe: Luis Alberto Conroy Provider For Whom Dee is Documenting (Include Credential): Darien Ribera MD. Scribe Attestation: Luis Alberto Mckeon, scribed for Darien Ribera MD. on 01/09/19 at 1201. Status of Scribe Document: Ready
[2019-01-09] MEDS: Nitroglycerin TAB 0.4 MG* 0.4 MG TAB SL ONE ×2 (09:37→10:01)
[2019-01-09 09:58] LABS: ABS Eosinophils 0.2 10^3/ul (0-0.6); ABS Lymphocytes 1.3 10^3/ul (1.0-4.8); ABS Monocytes 0.3 10^3/ul (0-0.8); Eosinophil % 4.1 %; Hematocrit 35 % (35-47); Lymphocyte % 26.6 %; Mean Corpuscular HGB Conc 32 g/dL (31-36); Mean Corpuscular Hemoglobin 22 pg (27-31); Mean Corpuscular Volume 70 fL (80-97); Mean Platelet Volume 8.7 fL (7.4-10.4); Platelet Count 240 10^3/uL (150-450); Red Cell Distribution Width 16 % (10-15); White Blood Count 4.8 10^3/uL (3.5-10.8)
[2019-01-09 10:01] LABS: INR 1.01 (0.82-1.09)
--- OUTSIDE RECORDS SUMMARY | 2019-01-09 10:05 | XMS REPORT | Continuity of Care Document ---
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 Onset: 01/16/2011 Anemia Zeny Vlilegas M.D. Onset: 01/16/2011 Anxiety state Zeny Villegas M.D. Onset: 01/16/2011 Social History Type Date Description Comments Sex Unknown Tobacco Use Start: Unknown End: Former Cigarette Smoker Unknown Smoking Status Reviewed: 12/13/18 Former Cigarette Smoker ETOH Use Has consumed alcohol in the past Recreational Drug Use Denies Drug Use Tobacco Use Start: Unknown End: Patient is a former smoker Unknown Exercise Type/Frequency Does not exercise Allergies, Adverse Reactions, Alerts Description No Known Drug Allergies Medications Active Medications SIG Qnty Indications Ordering Date Provider Estring put in vaginally x 3 1units R32 Caryn Antunez, 12/13/2018 2mg Ring months SALES RECRUITER-Cde Gabapentin take 1 capsule by 90caps Fatou Coker, 11/25/2018 300mg mouth daily at N.P. Capsules bedtime for chronic pain/menopausal Tylenol take 2 tabs po q4 as 60tabs Fatou Coker, 11/25/2018 325mg Tablets needed, prn N.P. Hydroxyzine HCL take 1 tablet by 90tabs Fatou Coker, 11/25/2018 25mg mouth after nightly N.P. Tablets dose as needed (30min after hs dose) for anxiety Oxybutynin Chloride 1 po qd 30tabs R32 Caryn Antunez, 11/11/2018 ER SALES RECRUITER-Cde 5mg Tablets ER 24HR Gas Relief Extra [...] 150mg mouth twice a day N.P. Tablets Triamcinolone apply to dry skin 60units [...] Misc Heating Pad to apply prn back 1units Fatou Coker, 02/24/2018 Moist/Dry pain N.P. Pads Nystop after cleansing and 30units Fatou Coker, 12/17/2017 [id number]/GM drying the affected N.P. Powder area, apply the powder. use 2-3 times daily for 7 days. Acetaminophen ER 1 tab by mouth as 45tabs Biju Alejo NP 11/05/2017 needed pain 650mg Tablets ER Protonix 1 by mouth every day 30tabs Fatou Coker, 08/13/2017 40mg Tablets N.P. Celecoxib Take One Capsule By 60caps M85.9 Fatou Coker, 04/23/2017 100mg Mouth Twice A Day N.P. Capsules Lactulose 15 milliliters once 3600ml Biju Alejo NP 09/23/2016 10GM/15ML a day to aid bowel Solution movement Multivitamin Adults one by mouth daily 30tabs Fatou [facility], 09/04/2016 50+ N.P. Adt 50+ Tablets Mirtazapine 1 by mouth every 30tabs Fatou [facility], 03/06/2016 7.5mg night at bedtime N.P. Tablets Cetirizine HCL 1 by mouth at 30tabs [facility], 09/05/2015 10mg bedtime as needed N.P. Tablets allergies, prn Ondansetron dissolve 1 tablet on 20tabs [facility], 04/24/2015 4mg tongue every 6-8 N.P. Tablets Dispers hours as needed for vomiting Colace 1 by mouth twice a 180caps [facility], 12/01/2014 100mg Capsules day as needed N.P. constipation Oxybutynin Chloride One tablet po q Caryn Antunez, daily SALES RECRUITER-Cde 5mg Tablets Latuda take 1 tablet by Harini Roa, 40mg Tablets mouth at bedtime MD with a snack for schizophrenia Lotrisone apply externally Unknown 1-0.05% bid-tid Cream Gabapentin take 1 capsule by 60caps Biju Alejo NP 100mg mouth every in the Capsules morning 1 by mouth at noon Hydroxyzine HCL 1 tab by mouth every 60tabs Fatou Varn, 25mg morning and take 1 N.P. Tablets tablet at bedtime for anxiety Klonopin 1 by mouth qd Unknown 0.5mg Tablets Pramoxine HCL [facility] d/c summary Unknown 1% Foam 01/06/15- Pramoxine HCl vaginal wipes 1%- apply to affected area 3-4 times a day for vaginal itching. Maalox Max 10 milliliters every 355ml Fatou Var, 4 hours as needed N.P. [id number]/5ML Suspension History Medications Oxybutynin Chloride One po bid 60tabs Fatou John Paul, 07/20/2018 - 5mg N.P. 11/25/2018 Tablets Tolterodine Tartrate One po bid 60tabs R32 Fatou Coker, 07/12/2018 - N.P. 07/20/2018 2mg Tablets Oxybutynin Chloride 2 tablets po qd 60tabs Fatou Coker, 06/16/2018 - ER N.P. 07/02/2018 5mg Tablets ER 24HR Immunizations CPT Code Status Date Vaccine Lot # [id number] Given 12/09/2016 Influenza Virus Vaccine, Quadrivalent, Split, Preservative Free [id number] Given 07/08/2013 Tdap - Tetanus/Diptheria/Acellular Pertussis [id number] Given 01/26/2012 Fluvirin Im 3Yrs And Older [id number] Given 01/16/2011 Influenza Virus 3Yrs & Over [id number] Given 04/10/2009 Influenza Virus Vaccine, Pandemic Formulation [id number] Given 04/10/2009 Administration Swine Flu Shot Vital Signs Date Vital Result Comment 12/13/2018 11:14am Height 65.25 inches 5'5.25" Weight 150.00 lb Heart Rate 75 /min BP Systolic 110 mmHg BP Diastolic 72 mmHg O2 % BldC Oximetry 100 % BMI (Body Mass Index) 24.8 kg/m2 11/25/2018 10:08am Height 65.25 inches 5'5.25" Weight 148.00 lb Heart Rate 80 /min BP Systolic Sitting 114 mmHg BP Diastolic Sitting 70 mmHg Body Temperature 97.3 F O2 % BldC Oximetry 98 % BMI (Body Mass Index) 24.4 kg/m2 Results Test Date Facility Test Result H/L Range Note Laboratory test 11/21/2018 [facility] Troponin-I 0.00 ng/mL < 0.04 [address] (TnI) [place] [address] [phone] Lipase 16 U/L Normal 11.0-82.0 Comp Metabolic 11/21/2018 [facility] Sodium 141 mmol/L Normal 135-[address] [place] [address] [phone] Potassium 3.5 mmol/L Normal 3.5-5.0 Chloride 108 mmol/L Normal 101-111 Co2 Carbon Dioxide 29 mmol/L Normal 22-32 Anion Gap 4 mmol/L Normal 2-11 Glucose 101 mg/dL High 70-100 Blood Urea Nitrogen 11 mg/dL Normal 6-24 Creatinine 0.88 mg/dL Normal 0.51-0.95 BUN/Creatinine Ratio 12.5 Normal 8-20 Calcium 8.4 mg/dL Low 8.6-10.3 Total Protein 6.9 g/dL Normal 6.4-8.9 Albumin 3.7 g/dL Normal 3.2-5.2 Globulin 3.2 g/dL Normal 2-4 Albumin/Globulin Ratio 1.2 Normal 1-3 Total Bilirubin 0.30 mg/dL Normal 0.2-1.0 Alkaline Phosphatase 86 U/L Normal 34-104 Alt 12 U/L Normal 7-52 Ast 14 U/L Normal 13-39 Egfr Non- 64.7 >60 Egfr 78.3 >60 2 Laboratory 11/21/2018 [facility] D Dimer < 200 Normal Less 3 test finding [address] Quantitative ng/mL Than [address] [place] [address] [phone] CBC Auto Diff 11/21/2018 [facility] White Blood 6.6 Normal 3.5 -10.[address] Count 10^3/[place] [address] [phone] Red Blood Count 5.10 10^6/uL High 3.70-4.87 Hemoglobin 11.3 g/dL Low 12.0-16.0 Hematocrit 36 % Normal 35-47 Mean Corpuscular Volume 70 fL Low 80-97 Mean Corpuscular Hemoglobin 22 pg Low 27-31 Mean Corpuscular HGB Conc 32 g/dL Normal 31-36 Red Cell Distribution Width 16 % High 10-15 Platelet Count 223 10^3/uL Normal 150-450 Mean Platelet Volume 9.1 fL Normal 7.4-10.4 Abs Neutrophils 3.9 10^3/uL Normal 1.5-7.7 Abs Lymphocytes 1.9 10^3/uL Normal 1.0-4.8 Abs Monocytes 0.4 10^3/uL Normal 0-0.8 Abs Eosinophils 0.3 10^3/uL Normal 0-0.6 Abs Basophils 0.1 10^3/uL Normal 0-0.2 Abs Nucleated RBC 0.0 10^3/uL Granulocyte % 58.9 % Lymphocyte % 29.0 % Monocyte % 6.4 % Eosinophil % 4.9 % Basophil % 0.8 % Nucleated Red Blood Cells % 0.0 Laboratory test 11/21/2018 [facility] Troponin-I 0.01 <0.[address] (TnI) ng/[place] [address] [phone] Laboratory test 11/20/2018 [facility] Troponin-I 0.01 <0.[address] (TnI) ng/[place] [address] [phone] CBC Auto Diff 11/20/2018 [facility] White Blood 5.1 Normal 3.5 -10.[address] Count 10^3/[place] [address] [phone] Red Blood Count 4.96 10^6/uL High 3.70-4.87 Hemoglobin 11.0 g/dL Low 12.0-16.0 Hematocrit 35 % Normal 35-47 Mean Corpuscular Volume 70 fL Low 80-97 6 Mean Corpuscular Hemoglobin 22 pg Low 27-31 Mean Corpuscular HGB Conc 32 g/dL Normal 31-36 Red Cell Distribution Width 17 % High 10-15 Platelet Count 238 10^3/uL Normal 150-450 Mean Platelet Volume 8.9 fL Normal 7.4-10.4 Abs Neutrophils 3.1 10^3/uL Normal 1.5-7.7 Abs Lymphocytes 1.5 10^3/uL Normal 1.0-4.8 Abs Monocytes 0.3 10^3/uL Normal 0-0.8 Abs Eosinophils 0.2 10^3/uL Normal 0-0.6 Abs Basophils 0.1 10^3/uL Normal 0-0.2 Abs Nucleated RBC 0.0 10^3/uL Granulocyte % 59.7 % Lymphocyte % 29.4 % Monocyte % 5.4 % Eosinophil % 4.4 % Basophil % 1.1 % Nucleated Red Blood Cells % 0.1 Comp Metabolic 11/20/2018 [facility] Sodium 140 mmol/L Normal 135-[address] [place] [address] [phone] Potassium 3.7 mmol/L Normal 3.5-5.0 Chloride 109 mmol/L Normal 101-111 Co2 Carbon Dioxide 28 mmol/L Normal 22-32 Anion Gap 3 mmol/L Normal 2-11 Glucose 128 mg/dL High 70-100 Blood Urea Nitrogen 10 mg/dL Normal 6-24 Creatinine 0.88 mg/dL Normal 0.51-0.95 BUN/Creatinine Ratio 11.4 Normal 8-20 Calcium 8.7 mg/dL Normal 8.6-10.3 Total Protein 6.9 g/dL Normal 6.4-8.9 Albumin 3.7 g/dL Normal 3.2-5.2 Globulin 3.2 g/dL Normal 2-4 Albumin/Globulin Ratio 1.2 Normal 1-3 Total Bilirubin 0.20 mg/dL Normal 0.2-1.0 Alkaline Phosphatase 93 U/L Normal 34-104 Alt 11 U/L Normal 7-52 Ast 14 U/L Normal 13-39 Egfr Non- 64.7 >60 Egfr 78.3 >60 7 Lipid Profile 11/16/2018 [facility] Triglycerides 113 mg/dL 8, 9 (Trig/Chol/HDL) [address] [place] [address] [phone] Cholesterol 236 mg/dL 10 HDL Cholesterol 84.9 mg/dL 11 LDL Cholesterol 129 mg/dL 12 Hepatitis C Antibody 11/16/2018 [facility] HCV Index 0.06 s/c [address] [place] [address] [phone] Hepatitis C Antibody Negative Negative Laboratory 09/14/2018 [facility] Cytology SEE RESULT 13, 14 test finding [address] [place] [address] [phone] Laboratory 08/25/2018 [employer] [facility] House Hemosure negative test finding Non-Medicare Iron & Iron 08/17/2018 [facility] Iron 73 g/dL Normal 50-2 [address] [place] [address] [phone] Unsaturated Iron Binding < 304 g/dL Total Iron Binding Capacity 319 g/dL Normal 250-450 Transferrin 228 mg/dL Normal 203-362 % Iron Saturation 23 % Normal 15-55 CBC Auto 08/17/2018 [facility] White Blood 7.4 10^3/uL Normal 3.5-10.[address] [place] [address] [phone] Red Blood Count 5.55 10^6/uL High 3.70-4.87 Hemoglobin 12.0 g/dL Normal 12.0-16.0 Hematocrit 39 % Normal 35-47 Mean Corpuscular Volume 71 fL Low 80-97 16 Mean Corpuscular Hemoglobin 22 pg Low 27-31 [...] Blood Cells % 0.1 Laboratory test 08/17/2018 [facility] Ferritin 25.2 ng/mL Normal 11-307 17 finding [address] [place] [address] [phone] Comp Metabolic 08/06/2018 [facility] Sodium 139 mmol/L Normal 135-145 Panel [address] [place] [address] [phone] Potassium 4.7 mmol/L Normal 3.5-5.0 Chloride 106 [...] Egfr Non- 71.4 >60 Egfr 86.4 >60 18 Inr/Protime 08/06/2018 [facility] Inr 1.03 Normal 0.82-1.[address] [place] [address] [phone] Laboratory test 08/06/2018 [facility] Troponin-I 0.00 <0.04 [address] (TnI) ng/[place] [address] [phone] CBC Auto Diff 08/06/2018 [facility] White 5.4 Normal 3.5-10.[address] Blood 10^3/[place] [address] Count [phone] Red Blood Count 4.97 10^6/uL High 3.70-4.87 Hemoglobin 10.9 g/dL Low 12.0-16.0 Hematocrit 35 % Normal 35-47 Mean Corpuscular Volume 70 fL Low 80-97 21 Mean Corpuscular Hemoglobin 22 pg Low 27-31 [...] % Nucleated Red Blood Cells % 0.1 Urine Culture And 07/12/2018 [facility] Urine SEE RESULT 22 , [address] [place] [address] [phone] Inr/Protime 07/03/2018 [facility] Inr 0.95 Normal 0.[address] -1.0 [place] [address] [phone] Laboratory test 07/03/2018 [facility] Partial 32.9 Normal 26.0 finding 101 [facility] Thrombo seconds -[address]. [place] [address] Time PTT 3 [phone] B-Type Natriuretic Peptide BNP 10 pg/mL <=100 D Dimer Quantitative < 200 ng/mL Normal Less Than 230 24 Influenza A & B 07/03/2018 [facility] Influenza A NEGATIVE Negative [address] [place] [address] [phone] Influenza B Molecular NEGATIVE Negative Comp Metabolic 07/03/2018 [facility] Sodium 140 mmol/L Normal 135-145 Panel [address] [place] [address] [phone] Potassium 4.2 mmol/L Normal 3.5-5.0 Chloride 106 [...] Egfr Non- 64.9 >60 Egfr 78.5 >60 26 Laboratory test 07/03/2018 [facility] Magnesium 2.2 mg/dL Normal 1.9-2.7 finding [address] [place] [address] [phone] Creatine Kinase(CK) 222 U/L Normal 10-223 Troponin-I (TnI) 0.00 ng/mL <0.04 27 CKMB 07/03/2018 [facility] CKMB ng/mL 1.1 ng/mL Normal 0.6- 6.3 [address] [place] [address] [phone] Laboratory test 07/03/2018 [facility] Lactic Acid 2.0 mmol/L Normal 0.5-2.0 28 [place] [address] [phone] Laboratory test 07/03/2018 [facility] Troponin-I 0.00 ng/mL < 0.04 29 finding (TnI) [place] [address] [phone] CBC Auto Diff 07/03/2018 [facility] White Blood 5.6 Normal 3.5 -10.8 Count 10^3/[place] [address] [phone] Red Blood Count 5.47 10^6/uL High 3.70-4.87 [...] Blood Cells % 0.1 Laboratory test 07/01/2018 [facility] Troponin-I (TnI) 0.00 ng/ mL <0.[address] [place] [address] [phone] Urinalysis 07/01/2018 [facility] Urine [place] [address] [phone] Urine Appearance Clear Urine Specific [place] 1.004 Low 1.010-1.030 Urine pH 8.0 Normal [...] Present Abnormal Absent Urine Culture And 07/01/2018 [facility] Urine SEE RESULT [address] [place] [address] [phone] CBC Auto Diff 07/01/2018 [facility] White Blood 6.0 10^3/uL Normal 3.5- [address] Count 10.8 [place] [address] [phone] Red Blood Count 5.36 10^6/uL High 3.70-4.87 Hemoglobin 11.8 g/dL Low 12.0-16.0 Hematocrit 38 % Normal 33-41 Mean Corpuscular Volume 70 fL Low 80-97 32 Mean Corpuscular Hemoglobin 22 pg Low 27-31 [...] Blood Cells % 0.1 Laboratory test 07/01/2018 [facility] Lactic Acid 1.1 mmol/L Normal 0.5-2.0 [address] [place] [address] [phone] Comp Metabolic 07/01/2018 [facility] Sodium 141 mmol/L Normal 135-[address] [place] [address] [phone] Potassium 4.1 mmol/L Normal 3.5-5.0 Chloride 106 [...] Egfr Non- 67.5 >60 Egfr 81.7 >60 34 Laboratory 07/01/2018 [facility] Troponin-I (TnI) 0.00 <0.04 35 test finding [address] ng/[place] [address] [phone] Laboratory 07/01/2018 [facility] D Dimer < 200 Normal Less 36 test finding [address] Quantitative ng/mL Than 230 [place] [address] [phone] 1 Troponin-I testing on Plasma Separator Tubes (PST) has a known false positive rate of 0.20-0.40%. All positive troponins reflex immediately to secondary confirmatory testing. Using the [employer] 800 Access Immunoassay systems, the 99th percentile upper reference limit was demonstrated to be < 0.03 ng/mL. 2 Because ethnic data is not always readily [...] 15-29 5 Kidney failure <15 (or dialysis) 3 Please note: The following may produce a false positive D Dimer test: - Rheumatoid factor greater than 60 IU/ml - Plasma hemoglobin greater than 0.05 gm/dl - Bilirubin greater than 50 mg/dl - Lipids greater than 1000 mg/dl - FDP greater than 20 ug/ml 4 Troponin-I testing on Plasma Separator Tubes (PST) has a known false positive rate of 0.20-0.40%. All positive troponins reflex immediately to secondary confirmatory testing. Using the [employer] DxI 800 Access Immunoassay systems, the 99th percentile upper reference limit was demonstrated to be < 0.03 ng/mL. 5 Troponin-I testing on Plasma Separator Tubes (PST) has a known false positive rate of 0.20-0.40%. All positive troponins reflex immediately to secondary confirmatory testing. Using the [employer] DxI 800 Access Immunoassay systems, the 99th percentile upper reference limit was demonstrated to be < 0.03 ng/mL. 6 Consistent with Previous Results Reported on 08/17/18 7 Because ethnic data is not always readily [...] 15-29 5 Kidney failure <15 (or dialysis) 8 [id number] Desirable: <150 Borderline High: 150-199 High: 200-499 Very High: >500 10 Desirable: <200 Borderline High: 200-239 High: >239 11 Low: <40 Desirable: 40-60 High: >60 12 Desirable: <100 Near Optimal: 100-129 Borderline High: 130-159 High: 160-189 Very High: >189 13 [id number] 14 SEE RESULT BELOW Name: NEFTALIRENEESHIRA : [address]: Fatou Coker NP Acct: [id number] Unit: [id number] AGE: 63 Location: [facility] Re09/14/18 SEX: F Status: REG REF SPEC: [id number] LADI: 09/14/[address]: Fatou Coker NP REQ: [id number] RECD: 09/14/18 STATUS: SOUT _ ORDERED: TP IMAGE ANALYS, HPV/Thin Prep, HPV 16/18 GENE COMMENTS: [id number] Negative for Intraepithelial lesion or Malignancy Date [...] Signed by and Reported on: TURNER Bernal(ASCP) 3812 This Pap test was evaluated with the assistance of the [employer]dra DxPrep Test Imaging System. Due to cytologic findings at the seismograph recorder microscope, comprehensive manual rescreening by a Cigar Tobacco Rehandler may be required. The Pap Smear is [...] years. END OF REPORT DEPARTMENT OF PATHOLOGY, [address] [place] [address] Rob Kim M.D. Director [facility] # [id number] 15 [id number] BRONX 16 Consistent with Previous Results Reported on 08/06/18 17 [id number] BRONX 18 Because ethnic data is not always readily [...] 15-29 5 Kidney failure <15 (or dialysis) 19 Standard intensity warfarin therapeutic range: 2.0-3.0 High intensity warfarin therapeutic range: 2.5-3.5 20 Troponin-I testing on Plasma Separator Tubes (PST) has a known false positive rate of 0.20-0.40%. All positive troponins reflex immediately to secondary confirmatory testing. Using the [employer] DxI 800 Access Immunoassay systems, the 99th percentile upper reference limit was demonstrated to be < 0.03 ng/mL. 21 Consistent with Previous Results Reported on 07/03/18. 22 [id number] 23 SEE RESULT BELOW Name: RENEE LINDSAY E : [address]: Fatou Coker NP Acct: [id number] Unit: [id number] AGE: 62 Location: [facility] Re07/12/18 SEX: F Status: REG REF SPEC: [id number] LADI: 07/12/18-[address]: Fatou Coker NP REQ: [id number] RECD: 07/12/18 STATUS: COMP _ SOURCE: URINE SPDESC: ORDERED: Urine Culture COMMENTS: [id number] Urine Source: Random Procedure Result Reported Site Urine Culture Final 07/13/18- 1635 ML No growth of clinically significant organisms * ML - Main Lab . END OF REPORT DEPARTMENT OF PATHOLOGY, [address] [place] [address] Rob Kim M.D. Director [facility] # [id number] 24 Please note: The following may produce a false positive D Dimer test: - Rheumatoid factor greater than 60 IU/ml - Plasma hemoglobin greater than 0.05 gm/dl - Bilirubin greater than 50 mg/dl - Lipids greater than 1000 mg/dl - FDP greater than 20 ug/ml 25 Tea Blender: [id number] 26 Because ethnic data is not always readily [...] 15-29 5 Kidney failure <15 (or dialysis) 27 Troponin-I testing on Plasma Separator Tubes (PST) has a known false positive rate of 0.20-0.40%. All positive troponins reflex immediate secondary confirmatory testing. 28 [facility] Severe Sepsis and Septic Shock Management Bundle Measure requires all lactic acids initially measuring >2.0 mmol/L be repeated. 29 Troponin-I testing on Plasma Separator Tubes (PST) has a known false positive rate of 0.20-0.40%. All positive troponins reflex immediate secondary confirmatory testing. 30 Troponin-I testing on Plasma Separator Tubes (PST) has a known false positive rate of 0.20-0.40%. All positive troponins reflex immediate secondary confirmatory testing. 31 SEE RESULT BELOW Name: RENEE LINDSAY : [address]: Chalino Trejo MD Acct: [id number] Unit: [id number] AGE: 62 Location: ED Re07/01/18 SEX: F Status: REG ER SPEC: [id number] LADI: 07/01/[address]: Chalino Trejo MD REQ: [id number] RECD: 07/01/18 STATUS: SADIA GOMEZ DR: Fatou Coker COMPANION CAREGIVER _ SOURCE: URINE SPDESC: ORDERED: Urine Culture Procedure Result Reported Site Urine Culture Final 07/02/18- 1406 ML No growth of clinically significant organisms * ML - Main Lab . END OF REPORT DEPARTMENT OF PATHOLOGY, [address] [place] [address] Rob Kim M.D. Director [facility] # [id number] 32 Consistent with Previous Results Reported on 05/17/17 33 [facility] Severe Sepsis and Septic Shock Management Bundle Measure requires all lactic acids initially measuring >2.0 mmol/L be repeated. 34 Because ethnic data is not always readily [...] 15-29 5 Kidney failure <15 (or dialysis) 35 Troponin-I testing on Plasma Separator Tubes (PST) has a known false positive rate of 0.20-0.40%. All positive troponins reflex immediate secondary confirmatory testing. 36 Please note: The following may produce a false positive D Dimer test: - Rheumatoid factor greater than 60 IU/ml - Plasma hemoglobin greater than 0.05 gm/dl - Bilirubin greater than 50 mg/dl - Lipids greater than 1000 mg/dl - FDP greater than 20 ug/ml Procedures Date Code Description Status 11/23/2018 75296 Stress Test Completed 02/12/2018 [id number] Mammogram Completed 07/28/2016 [id number] Mammogram Completed 09/20/2015 [id number] Colonoscopy Completed 07/26/2015 [id number] Mammogram Completed 02/25/2011 [id number] Bone Mineral Density Test Completed 02/25/2011 [id number] Mammogram Completed 11/28/2008 [id number] Mammogram Completed 06/22/2007 [id number] Mammogram Completed Medical Devices Description No Information Available Encounters Type Date Location Provider Dx Diagnosis Office Visit 11/25/2018 [facility] Internal Kitty Rajan MD R07.89 Other chest pain 10:40a Medicine - [facility] Office Visit 11/09/2018 [facility] Internal Deena Santoyo MD Z00.00 Encntr for general 9:00a Medicine - [facility] adult medical exam w/o abnormal findings R32 Unspecified urinary incontinence K59.00 Constipation, unspecified Office Visit 09/14/2018 10:20a [facility] Internal Fatou Coker Z01.419 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 exam (general) [facility] (routine) w/o abn findings R07.89 Other chest pain Office Visit 08/13/2018 10:40a [facility] Internal aFtou Coker R07.89 Other chest Medicine - [facility] N.P. pain D64.9 Anemia, unspecified R14.0 Abdominal distension (gaseous) Office Visit 07/12/2018 11:40a [facility] Internal Fatou Coker, R32 Unspecified urinary Medicine - [facility] N.P. incontinence Assessments Date Code Description Provider 12/13/2018 R32 Unspecified urinary incontinence KRISTEL Kent-Cde 11/25/2018 R07.89 Other chest pain Kitty Rajan MD 11/23/2018 R07.89 Other chest pain Brianda Vance M.D. 11/23/2018 R07.89 Other chest pain Fatou Coker N.P. 11/11/2018 R32 Unspecified urinary incontinence KRISTEL Kent-Cde 11/09/2018 Z00.00 Encounter for general adult medical Deena Santoyo MD examination without abnormal findings 11/09/2018 R32 Unspecified urinary incontinence Deena Santoyo MD 11/09/2018 K59.00 Constipation, unspecified Deena Santoyo MD 09/14/2018 Z01.419 Encounter for gynecological Fatou Coker N.P. examination (general) (routine) 09/14/2018 R07.89 Other chest pain Fatou Coker N.P. 08/25/2018 D64.9 Anemia, unspecified Nurse Visit A 08/13/2018 R07.89 Other chest pain Fatou Coker N.P. 08/13/2018 D64.9 Anemia, unspecified Fatou Coker, N.P. 08/13/2018 R14.0 Abdominal distension (gaseous) Fatou Coker N.PLucretia 07/12/2018 R32 Unspecified urinary incontinence Fatou Coker N.Kendy. Plan of Treatment Future Appointment(s):12/22/2018 10:[facility] R[facility] Kent[facility] Unspecified urinary incontinenceNew Medication:Estring 2 mg - put in vaginally x 3 monthsComments: Discontinue th Oxybutynin medicationPick up the Estring and bring it back to your next appointmentFollow up:Next week for Estring insertion Functional Status Description No Information Available Mental Status Description No Information Available Referrals Refer to Reason for Referral Status Appt Date Abby Sotomayor MD Patient with cystocele causing urinary Sent 11/11/2018 incontinence, she is not interested or able to undergo pelvic floor PT. Already on oxybutynin [address], [place] [address] [phone]
--- OUTSIDE RECORDS SUMMARY | 2019-01-09 10:05 | XMS REPORT | Continuity of Care Document ---
:1955 External Reference #:[id number] Author Name KRISTEL Kent-Cde (transmitted by agent of provider Adelaida Matias) Address [address], [place] [address] Care Team Providers Name Role Phone Lorraine Vargas MD - Internal Care Team Information Director Hospice Operations [phone] Medicine Problems Active Problems Provider Date Female climacteric state Long Bass M.D.,FACP Onset: 03/21/2009 Urge incontinence of urine Long Bass M.D.,FACP Onset: 03/21/2009 Atrophic vaginitis Zeny Villegas M.D. Onset: 01/16/2011 Anemia Zeny Villegas M.D. Onset: 01/16/2011 Anxiety state Zeny Villegas M.D. Onset: 01/16/2011 Social History Type Date Description Comments Sex Unknown Tobacco Use Start: Unknown End: Former Cigarette Smoker Unknown Smoking Status Reviewed: 12/22/18 Former Cigarette Smoker ETOH Use Has consumed [...] R32 Caryn Antunez, 12/13/2018 2mg Ring months CHARGING OPERATOR-Cde Gabapentin take 1 capsule by 90caps Fatou [...] qd 30tabs R32 Caryn Antunez, 11/11/2018 ER CHARGING OPERATOR-Cde 5mg Tablets ER 24HR Gas Relief Extra [...] after cleansing and 30units Fatou Coker, 12/17/2017 757602Iyzr/GM drying the affected N.P. Powder area, apply the powder. use 2-3 times daily for 7 days. Acetaminophen ER 1 tab by mouth as 45tabs Biju Alejo NP 11/05/2017 needed pain 650mg Tablets ER Protonix 1 by mouth every day 30tabs Fatou Coker, 08/13/[address] Mathur Take One Capsule By 60caps M85.9 Fatou Coker, 04/23/2017 100mg Mouth Twice A Day N.P. Capsules Lactulose 15 milliliters once 3600ml Biju Alejo NP 09/23/2016 10GM/15ML a day to aid bowel Solution movement Multivitamin Adults one by mouth daily 30tabs Fatou Varn, 09/04/2016 50+ N.P. Adt 50+ Tablets Mirtazapine 1 by mouth every 30tabs Fatou Varn, 03/06/2016 7.5mg night at bedtime N.P. Tablets Cetirizine HCL 1 by mouth at 30tabs Fatou Varn, 09/05/2015 10mg bedtime as needed N.P. Tablets allergies, prn Ondansetron dissolve 1 tablet on 20tabs Fatou Varbuck, 04/24/2015 4mg tongue every 6-8 N.P. Tablets Dispers hours as needed for vomiting Colace 1 by mouth twice a 180caps Fatou Varbuck, 12/01/2014 100mg Capsules day as needed N.P. constipation Oxybutynin Chloride One tablet po q Caryn Antunez, daily CHARGING OPERATOR-Cde 5mg Tablets Latuda take 1 tablet by [...] Maalox Max 10 milliliters every 355ml Fatou Varn, 4 hours as needed N.P. [phone]/5ML Suspension History Medications Oxybutynin Chloride One po bid 60tabs Fatou Varn, N.P. 07/20/2018 - 5mg 11/25/2018 Tablets Tolterodine Tartrate One po bid 60tabs R32 Fatou Coker, N.P. 07/12/2018 - 2mg 07/20/2018 Tablets Immunizations CPT Code Status Date Vaccine Lot # [id number] Given 12/09/2016 Influenza Virus Vaccine, Quadrivalent, Split, Preservative Free 21089 Given 07/08/2013 Tdap - Tetanus/Diptheria/Acellular Pertussis [id number] Given 01/26/2012 Fluvirin Im 3Yrs And Older 72240 Given 01/16/2011 Influenza Virus 3Yrs & Over [id number] Given 04/10/2009 Influenza Virus Vaccine, Pandemic Formulation [id number] Given 04/10/2009 Administration Swine Flu Shot Vital Signs Date Vital Result Comment 12/22/2018 10:04am Height 65.25 inches 5'5.25" Weight 151.25 lb Heart Rate 98 /min BP Systolic 138 mmHg BP Diastolic 88 mmHg O2 % BldC Oximetry 99 % BMI (Body Mass Index) 25.0 kg/m2 12/13/2018 11:14am Height 65.25 inches 5'5.25" Weight 150.00 lb Heart Rate 75 /min BP Systolic 110 mmHg BP Diastolic 72 mmHg O2 % BldC Oximetry 100 % BMI (Body Mass Index) 24.8 kg/m2 Results Test Date Facility Test Result H/L Range Note Laboratory test 11/21/2018 [facility] Troponin-I 0.00 ng/mL < 0.[address] (TnI) [place] [address] [phone] Lipase 16 U/L Normal 11.0-82.0 Comp Metabolic 11/21/2018 [facility] Sodium 141 mmol/L Normal 135-[address] [place] [address] [phone] Potassium 3.5 mmol/L Normal 3.5-5.0 Chloride 108 [...] >60 Egfr 78.3 >60 2 Laboratory 11/21/2018 [facility] D Dimer < 200 Normal Less 3 test finding [address] Quantitative ng/mL Than 230 [place] [address] [phone] CBC Auto Diff 11/21/2018 [facility] White Blood 6.6 Normal 3.5 -10.[address] Count 10^3/[place] [address] [phone] Red Blood Count 5.10 10^6/uL High 3.70-4.87 [...] Blood Cells % 0.0 Laboratory test 11/21/2018 [facility] Troponin-I 0.01 <0.04 [address] (TnI) ng/[place] [address] [phone] Laboratory test 11/20/2018 [facility] Troponin-I 0.01 <0.04 [address] (TnI) ng/[place] [address] [phone] CBC Auto Diff 11/20/2018 [facility] White Blood 5.1 Normal 3.5 -10.[address] Count 10^3/[place] [address] [phone] Red Blood Count 4.96 10^6/uL High 3.70-4.87 [...] Blood Cells % 0.1 Comp Metabolic 11/20/2018 [facility] Sodium 140 mmol/L Normal 135-[address] [place] [address] [phone] Potassium 3.7 mmol/L Normal 3.5-5.0 Chloride 109 [...] Egfr 78.3 >60 7 Lipid Profile 11/16/2018 [facility] Triglycerides 113 mg/dL 8, 9 (Trig/Chol/HDL) [address] [place] [address] [phone] Cholesterol 236 mg/dL 10 HDL Cholesterol 84.9 mg/dL 11 LDL Cholesterol 129 mg/dL 12 Hepatitis C Antibody 11/16/2018 [facility] HCV Index 0.06 s/c [address] [place] [address] [phone] Hepatitis C Antibody Negative Negative Laboratory 09/14/2018 [facility] Cytology SEE RESULT 13, 14 test finding [address] [place] [address] [phone] Laboratory 08/25/2018 [facility] Hemosure negative test finding Non-Medicare Iron & Iron 08/17/2018 [facility] Iron 73 g/dL Normal 50-[address] [place] [address] [phone] Unsaturated Iron Binding < 304 g/dL Total Iron Binding Capacity 319 g/dL Normal 250-450 Transferrin 228 mg/dL Normal 203-362 % Iron Saturation 23 % Normal 15-55 CBC Auto 08/17/2018 [facility] White Blood 7.4 10^3/uL Normal 3.5-10.[address] [place] [address] [phone] Red Blood Count 5.55 10^6/uL High 3.70-4.87 [...] Blood Cells % 0.1 Laboratory test 08/17/2018 [facility] Ferritin 25.2 ng/mL Normal 11-307 17 finding [address] [place] [address] [phone] Comp Metabolic 08/06/2018 [facility] Sodium 139 mmol/L Normal 135-145 Panel [address] [place] [address] [phone] Potassium 4.7 mmol/L Normal 3.5-5.0 Chloride 106 [...] >60 Egfr 86.4 >60 18 Inr/Protime 08/06/2018 [facility] Inr 1.03 Normal 0.82-1.[address] [place] [address] [phone] Laboratory test 08/06/2018 [facility] Troponin-I 0.00 <0.04 [address] (TnI) ng/[place] [address] [phone] CBC Auto Diff 08/06/2018 [facility] White 5.4 Normal 3.5-10.[address] Blood 10^3/[place] [address] Count [phone] Red Blood Count 4.97 10^6/uL High 3.70-4.87 [...] Cells % 0.1 Urine Culture And 07/12/2018 [facility] Urine SEE RESULT 22 , [address] [place] [address] [phone] Inr/Protime 07/03/2018 [facility] Inr 0.95 Normal 0.[address] -1.0 [place] [address] 2 [phone] Laboratory test 07/03/2018 [facility] Partial 32.9 Normal 26.[address] Thrombo seconds -36. [place] [address] Time PTT 3 [phone] B-Type Natriuretic Peptide BNP 10 pg/mL <=100 D Dimer Quantitative < 200 ng/mL Normal Less Than 230 24 Influenza A & B 07/03/2018 [facility] Influenza A NEGATIVE Negative [address] [place] [address] [phone] Influenza B Molecular NEGATIVE Negative Comp Metabolic 07/03/2018 [facility] Sodium 140 mmol/L Normal 135-145 Panel 101 [place] [address] [phone] Potassium 4.2 mmol/L Normal 3.5-5.0 Chloride 106 [...] Egfr 78.5 >60 26 Laboratory test 07/03/2018 [facility] Magnesium 2.2 mg/dL Normal 1.9-2.7 finding [address] [place] [address] [phone] Creatine Kinase(CK) 222 U/L Normal 10-223 Troponin-I (TnI) 0.00 ng/mL <0.04 27 CKMB 07/03/2018 [facility] CKMB ng/mL 1.1 ng/mL Normal 0.6- 6.3 [address] [place] [address] [phone] Laboratory test 07/03/2018 [facility] Lactic Acid 2.0 mmol/L Normal 0.5-2.0 28 finding [address] [place] [address] [phone] Laboratory test 07/03/2018 [facility] Troponin-I 0.00 ng/mL < 0.04 29 finding 101 (TnI) [place] [address] [phone] CBC Auto Diff 07/03/2018 [facility] White Blood 5.6 Normal 3.5 -10.[address] Count 10^3/[place] [address] [phone] Red Blood Count 5.47 10^6/uL High 3.70-4.87 [...] Blood Cells % 0.1 Laboratory test 07/01/2018 [facility] Troponin-I (TnI) 0.00 ng/ mL <0.[address] [place] [address] [phone] Urinalysis 07/01/2018 [facility] Urine Color Straw Profile [address] [place] [address] [phone] Urine Appearance Clear Urine Specific Corder 1.004 Low 1.010-1.030 Urine pH 8.0 Normal [...] Present Abnormal Absent Urine Culture And 07/01/2018 [facility] Urine SEE RESULT [address] [place] [address] [phone] CBC Auto Diff 07/01/2018 [facility] White Blood 6.0 10^3/uL Normal 3.5- [address] Count 10.8 [place] [address] [phone] Red Blood Count 5.36 10^6/uL High 3.70-4.87 [...] Blood Cells % 0.1 Laboratory test 07/01/2018 [facility] Lactic Acid 1.1 mmol/L Normal 0.5-2.0 [address] [place] [address] [phone] Comp Metabolic 07/01/2018 [facility] Sodium 141 mmol/L Normal 135-[address] [place] [address] [phone] Potassium 4.1 mmol/L Normal 3.5-5.0 Chloride 106 [...] >60 Egfr 81.7 >60 34 Laboratory 07/01/2018 [facility] Troponin-I (TnI) 0.00 <0.04 35 test finding [address] ng/[place] [address] [phone] Laboratory 07/01/2018 [facility] D Dimer < 200 Normal Less 36 test finding [address] Quantitative ng/mL Than 230 [place] [address] [phone] 1 Troponin-I testing on Plasma Separator Tubes (PST) has a known false positive rate of 0.20-0.40%. All positive troponins reflex immediately to secondary confirmatory testing. Using the [employer] DxI 800 Access Immunoassay systems, the 99th [...] immediately to secondary confirmatory testing. Using the [employer] DxI 800 Access Immunoassay systems, the 99th percentile upper reference limit was demonstrated to be < 0.03 ng/mL. 5 Troponin-I testing on Plasma Separator Tubes (PST) has a known false positive rate of 0.20-0.40%. All positive troponins reflex immediately to secondary confirmatory testing. Using the [employer] DxI 800 Access Immunoassay systems, the 99th [...] 5 Kidney failure <15 (or dialysis) 8 [id number] Desirable: <150 Borderline High: 150-199 High: 200-499 Very High: >500 10 Desirable: <200 Borderline High: 200-239 High: >239 11 Low: <40 Desirable: 40-60 High: >60 12 Desirable: <100 Near Optimal: 100-129 Borderline High: 130-159 High: 160-189 Very High: >189 13 [id number] 14 SEE RESULT BELOW Name: RENEE LINDSAY : [address]: Fatou Coker NP Acct: [id number] Unit: [id number] AGE: 63 Location: [facility] Re09/14/18 SEX: F Status: REG REF SPEC: [id number] LADI: 09/14/[address]: Fatou Coker NP REQ: [id number] RECD: 09/14/18 STATUS: SOUT _ ORDERED: TP IMAGE ANALYS, HPV/Thin Prep, HPV 16/18 GENE COMMENTS: [id number] Negative for Intraepithelial lesion or Malignancy Date [...] Signed by and Reported on: TURNER Bernal(ASCP) 1671 This Pap test was evaluated with the assistance of the [employer] Test Imaging System. Due to cytologic findings at the director of career resources microscope, comprehensive manual rescreening by a Polisher Implant may be required. The Pap Smear is [...] years. END OF REPORT DEPARTMENT OF PATHOLOGY, [address] [place] [address] Rob Kim M.D. Director [facility] # [id number] 15 [id number] 16 Consistent with Previous Results Reported on 08/06/18 17 [id number] [place] 18 Because ethnic data is not always [...] immediately to secondary confirmatory testing. Using the [employer] DxI 800 Access Immunoassay systems, the 99th percentile upper reference limit was demonstrated to be < 0.03 ng/mL. 21 Consistent with Previous Results Reported on 07/03/18. 22 [id number] 23 SEE RESULT BELOW Name: NEFTALIRENEESHIRA : [address]: Fatou Coker NP Acct: [id number] Unit: [id number] AGE: 62 Location: [facility] Re07/12/18 SEX: F Status: REG REF SPEC: [id number] LADI: 07/12/18-[address]: Fatou Coker NP REQ: [id number] RECD: 07/12/18 STATUS: COMP _ SOURCE: URINE [facility]: ORDERED: Urine Culture COMMENTS: [id number] Urine Source: Random Procedure Result Reported Site Urine Culture Final 07/13/18- 1635 ML No growth of clinically significant organisms * ML - Main Lab . END OF REPORT DEPARTMENT OF PATHOLOGY, [address] [place] [address] Rob Kim M.D. Director [facility] # [id number] 24 Please note: The following may produce a false positive D Dimer test: - Rheumatoid factor greater than 60 IU/ml - Plasma hemoglobin greater than 0.05 gm/dl - Bilirubin greater than 50 mg/dl - Lipids greater than 1000 mg/dl - FDP greater than 20 ug/ml 25 Blacking Machine Operator: [id number] 26 Because ethnic data is not always [...] troponins reflex immediate secondary confirmatory testing. 28 [facility] Severe Sepsis and Septic Shock Management Bundle [...] [address]: Chalino Trejo MD Acct: [id number] Unit: [id number] AGE: 62 Location: ED Re07/01/18 SEX: F Status: REG ER SPEC: [id number] LADI: 07/01/[address]: Chalino Trejo MD REQ: [id number] RECD: 07/01/18 STATUS: COMP JASON DR: Fatou Coker DRAGGER OUT _ SOURCE: URINE SPDESC: ORDERED: Urine Culture Procedure Result Reported Site Urine Culture Final 07/02/18- 1406 ML No growth of clinically significant organisms * ML - Main Lab . END OF REPORT DEPARTMENT OF PATHOLOGY, [address] [place] [address] Rob Kim M.D. Director [facility] # [id number] 32 Consistent with Previous Results Reported on 05/17/17 33 [facility] Severe Sepsis and Septic Shock Management Bundle [...] ug/ml Procedures Date Code Description Status 11/23/2018 67034 Stress Test Completed 02/12/2018 [id number] Mammogram Completed 07/28/2016 73965667 Mammogram Completed 09/20/2015 82874859 Colonoscopy Completed 07/26/2015 20671635 Mammogram Completed 02/25/2011 344069481 Bone Mineral Density Test Completed 02/25/2011 39301915 Mammogram Completed 11/28/2008 85065771 Mammogram Completed 06/22/2007 91273554 Mammogram Completed Medical Devices Description No Information Available Encounters Type Date Location Provider Dx Diagnosis Office Visit 12/13/2018 [facility] Caryn Antunez, N39.46 Mixed incontinence 11:30a [facility] CHARGING OPERATOR-Cde N95.2 Postmenopausal atrophic vaginitis Office Visit 11/25/2018 10:40a [facility] Internal Kitty Rajan, R07.89 Other chest pain Medicine - MD Ccmob Office Visit 11/11/2018 2:00p [facility] Caryn R32 Unspecified urinary [facility] Tul[place], incontinence CHARGING OPERATOR-Cde N95.2 Postmenopausal atrophic vaginitis Office Visit 11/09/2018 9:00a [facility] Internal Deena Santoyo MD Z00.00 Encntr for Medicine - Ccmob general adult medical exam w/o abnormal findings R32 Unspecified urinary incontinence K59.00 Constipation, unspecified Office Visit 09/14/2018 10:20a [facility] Internal Fatou Coker Z01.419 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 exam (general) Ccmob (routine) w/o abn findings R07.89 Other chest pain Office Visit 08/13/2018 10:40a [facility] Internal Fatou Coker, R07.89 Other chest Medicine - [facility]ob N.P. pain D64.9 Anemia, unspecified R14.0 Abdominal distension (gaseous) Office Visit 07/12/2018 11:40a [facility] Internal Fatou Coker, R32 Unspecified urinary Medicine - Ccmob N.P. incontinence Assessments Date Code Description Provider 12/22/2018 N39.46 Mixed incontinence Cayrn Mayeskristina CHARGING OPERATOR-Cde 12/22/2018 N95.2 Postmenopausal atrophic vaginitis Caryn Tulio, CHARGING OPERATOR-Cde 12/13/2018 N39.46 Mixed incontinence Caryn Antunez, CHARGING OPERATOR-Cde 12/13/2018 N95.2 Postmenopausal atrophic vaginitis Caryn Antunez CHARGING OPERATOR-Cde 11/25/2018 R07.89 Other chest pain Kitty Rajan MD 11/23/2018 R07.89 Other chest pain Brianda Vance M.D. 11/23/2018 R07.89 Other chest pain Fatou Coker N.P. 11/11/2018 R32 Unspecified urinary incontinence Caryn Antunez CHARGING OPERATOR-Cde 11/11/2018 N95.2 Postmenopausal atrophic vaginitis Temi Kent 11/09/2018 Z00.00 Encounter for general adult medical Deena Santoyo MD examination without abnormal findings 11/09/2018 R32 Unspecified urinary incontinence Deena Santoyo MD 11/09/2018 K59.00 Constipation, unspecified Deena Santoyo MD 09/14/2018 Z01.419 Encounter for gynecological Fatou Coker N.P. examination (general) (routine) 09/14/2018 R07.89 Other chest pain Fatou Coker, N.P. 08/25/2018 D64.9 Anemia, unspecified Nurse Visit A 08/13/2018 R07.89 Other chest pain Fatou Coker N.P. 08/13/2018 D64.9 Anemia, unspecified Fatou Coker, N.P. 08/13/2018 R14.0 Abdominal distension (gaseous) Fatou Coker N.PLucretia 07/12/2018 R32 Unspecified urinary incontinence Fatou Coker N.P. Plan of Treatment Future Appointment(s):03/24/2019 1:30 pm - [facility] at [facility]12/22/2018 - Laura KenteN39.46 Mixed incontinenceFollow up:3 months for Estring wvyxzolerM36.2 Postmenopausal atrophic vaginitis Functional Status Description No Information Available Mental Status Description No Information Available Referrals Refer to Dr Reason for Referral Status Appt Date Abby Sotomayor MD Patient with cystocele causing urinary Sent 11/11/2018 incontinence, she is not interested or able to undergo pelvic floor PT. Already on oxybutynin [address] [place] [address] [phone]
[2019-01-09 10:13] LABS: Albumin 3.8 g/dL (3.2-5.2); Albumin/Globulin Ratio 1.1 (1-3); BUN/Creatinine Ratio 13.4 (8-20); Calcium 8.9 mg/dL (8.6-10.3); EGFR African American 84.9 (>60); EGFR Non-African American 70.2 (>60); Globulin 3.5 g/dL (2-4); Potassium 3.7 mmol/L (3.5-5.0); Total Bilirubin 0.3 mg/dL (0.2-1.0); Total Protein 7.3 g/dL (6.4-8.9)
[2019-01-09 11:20] LABS: HDL Cholesterol 71.9 mg/dL
[2019-01-09] MEDS ORDERED: Nitro 2% OINT* (Nitroglycerin) 1 INCH/PAK PAK TOPICAL ONE (12:31)
[2019-01-09] MEDS ORDERED: Nitroglycerin TAB 0.4 MG* 0.4 MG TAB SL ONE (12:32)
[2019-01-09] MEDS ORDERED: Acetaminophen TAB* 325 MG PO PRN (13:07)
[2019-01-09] MEDS ORDERED: Loperamide CAP* 2 MG PO PRN (13:07)
[2019-01-09] MEDS ORDERED: clonazePAM TAB(*) 0.5 MG PO PRN (13:07)
[2019-01-09] MEDS ORDERED: Cetirizine* 10 MG TAB PO PRN (13:07)
[2019-01-09] MEDS: Pantoprazole TAB * 40 MG TAB PO SCH (13:47)
[2019-01-09] MEDS: Metoprolol Tartrate TAB* 25 MG PO SCH ×2 (13:47→21:08)
[2019-01-09] MEDS: Heparin VIAL(*) 5000 UNITS/ML VIAL (FIVE THOUSAND) SUBCUT SCH ×2 (16:37→21:09)
--- NOTE | 2019-01-09 19:12 | HP ---
CC: Fatou Coker NP * HISTORY AND PHYSICAL: DATE OF ADMISSION: 01/09/19 PRIMARY CARE PROVIDER: Chest pain, right-sided. SUBJECTIVE: This is a 63-year-old female who comes into the emergency room from her [facility] stating that she has been having some chest pain starting around 5:30 this morning with pain in the right chest, pointing to her right side, 7/10, associated with exertion and shortness of breath. Initially, when I was contacted by the ER, they did mention to me that her pain has resolved with aspirin and nitroglycerin provided in the ambulance. EKG was done in the emergency room. It did show some EKG changes in the lateral lead by T-wave inversion. Therefore, they have to evaluate and admit the patient. The patient was seen by me in the emergency room and upon entering the exam room , the patient was stating that she is still having chest pain, 8/10, pressure- like, right-sided, and has not subsided, which contraindicated what I was told by the ER attending. When I went ahead and I spoke with the ER attending, who went back with me to the room and did inquire from the patient again regarding her pain, and her story changed. She said the pain was resolved, but it just recurred and currently is at 8/10. Obviously, she has some inconsistency with her history, which has changed within minutes, between 2 separate providers. Nonetheless, I obtained stat repeat EKG and troponin, and her troponin did come back to be 0.01 and her EKG, which I ordered stat, was reviewed by me and actually the changes that were seen earlier on presentation have completely resolved with no ST-T wave change suggesting ischemia. Nonetheless, the patient will be admitted to the medical service under observation. She denies any nausea or vomiting. She has the shortness of breath and cough, but no headache , no diarrhea, and no motor or focal sensory deficit. PAST MEDICAL HISTORY: Significant for: 1. Anemia. 2. GERD. 3. Arthritis. 4. Anxiety. 5. Chronic pain. ALLERGIES: She is allergic to SULFA. FAMILY HISTORY: Reviewed and noncontributory. SOCIAL HISTORY: No alcohol. No illicit drug use. No tobacco use. PHYSICAL EXAMINATION GENERAL: She is awake, alert, provides history in full sentences. She appears to be anxious, tapping her hand over her right chest wall stating that it hurts. Follows commands and is very cooperative. VITAL SIGNS: Temperature 98.3, pulse 71, respiratory rate 19, satting 98%, blood pressure 137/82. HEAD AND NECK: Supple. Extraocular muscles intact. No JVD. I could not appreciate any carotid bruit. LUNGS: Clear to auscultation bilateral. CARDIOVASCULAR: S1, S2. Regular rate and rhythm. No murmur. CENTRAL NERVOUS SYSTEM: There are no motor or focal sensory deficits. ABDOMEN: Positive bowel sounds. Soft, nontender, nondistended. No rebound. GENITALIA EXAM: Deferred. RECTAL EXAM: Deferred. DIAGNOSTIC STUDIES/LAB DATA: CBC: White count 4.8, hemoglobin 11, hematocrit 35, platelets 240. Chemistry: Sodium 140, potassium, 3.7, chloride 106, bicarb 26, BUN 11, creatinine 0.8, glucose 131. Calcium 8.9, AST 14, ALT 13. Troponin 0.0 and then second set 0.01. LDL 119, HDL 71. A1c 5.7. EKG: Normal sinus rhythm, rate 83, WV 172, QRS 74, QT 565. Some T-wave inversion at the lateral leads. Repeat EKG: Normal sinus rhythm, rate 78, WV 172, QRS 84, QTc 446, normal sinus rhythm. No ST-T wave suggestive of ischemia. Chest x-ray shows no acute disease. IMPRESSION AND PLAN: This is a 63-year-old female who comes in with inconsistent history of chest pain, vague. At times she reports it resolves and to a different provider she stated it was constant and unrelieved, then she told me it is reproducible and then denied it to the other provider. Given the poor history and inconsistency, I would feel it is feasible to admit the patient to the medical service under telemetry and obtain serial cardiac enzymes. I did order d-dimer to rule out possible pulmonary embolism. If negative, then that will suffice. If positive, then we may need to proceed with CT angiogram. I will obtain an echocardiogram test to assess left ventricular function and consider a stress test in the morning, nuclear and chemical, as it is very hard to elicit history from the patient herself. I am going to continue her on aspirin 81 mg daily. I am going to add Lopressor 12.5 b.i.d. and p.r.n. nitroglycerin if she has chest pain. However, I would be very concerned that she may be complaining of chest pain throughout; therefore, it needs to be taken into consideration whether or not her chest pain is any different or not. Like I mentioned earlier, she had a very inconsistent history when she was giving history to myself as well as to the ER attending. Hyperlipidemia with LDL 119. She had a good HDL, however. I am going to start her on Lipitor 20 and then defer to outpatient for further management. Generalized osteoarthritis. We will continue her Neurontin and Celebrex. Gastroesophageal reflux disease. Continue Protonix daily. DVT prophylaxis. Heparin 5000 q.8 hours. [id number]/[facility] #: [id number] MTDD
--- NOTE | 2019-01-09 19:23 | PN ---
Hospitalist Progress Note Date of Service: 01/09/19 HOSPITALIST ADDENDUM Called by RN. Patient states her chest pain feels like her "reflux" and would like to have something for indigestion. Maalox PRN ordered.
[2019-01-09] MEDS ORDERED: Gabapentin CAP(*) 300 MG PO SCH (21:00)
[2019-01-09] MEDS ORDERED: Lurasidone(*) 40 MG TAB PO SCH (21:00)
[2019-01-09] MEDS ORDERED: hydrOXYzine HCL TAB* 25 MG PO SCH (21:00)
[2019-01-09] MEDS ORDERED: Atorvastatin* 20 MG TAB PO SCH (21:00)
[2019-01-09] MEDS: Mirtazapine TAB* 15 MG PO SCH (21:08)
[2019-01-09] MEDS: Famotidine TAB* 20 MG PO SCH (21:08)
[2019-01-09] MEDS: celeCOXIB CAP* 100 MG PO SCH (21:08)
[2019-01-09] MEDS: Al Hydrox/Mg Hydrox/Simet LIQ* 30 ML UDC PO PRN (21:09)
[2019-01-09] MEDS ORDERED: Nitroglycerin TAB 0.4 MG* 0.4 MG TAB SL PRN (23:49)
[2019-01-10] MEDS ORDERED: Morphine INJ* 2 MG/ML 1 ML SYRINGE (TWO MG - NEW SYRINGE VERSION) IV ONE (00:21)
[2019-01-10] MEDS ORDERED: Iohexol 350* (CONTRAST) 500 ML MDV IV ONE (01:03)
[2019-01-10] MEDS: Heparin VIAL(*) 5000 UNITS/ML VIAL (FIVE THOUSAND) SUBCUT SCH ×2 (05:37→13:21)
[2019-01-10] MEDS: Metoprolol Tartrate TAB* 25 MG PO SCH (08:16)
[2019-01-10 08:27] LABS: ABS Eosinophils 0.4 10^3/ul (0-0.6); ABS Lymphocytes 2.8 10^3/ul (1.0-4.8); ABS Monocytes 0.4 10^3/ul (0-0.8); ABS Neutrophils 3.2 10^3/ul (1.5-7.7); Eosinophil % 5.2 %; Hematocrit 38 % (35-47); Lymphocyte % 40.9 %; Mean Corpuscular HGB Conc 31 g/dL (31-36); Mean Corpuscular Hemoglobin 22 pg (27-31); Mean Corpuscular Volume 71 fL (80-97); Mean Platelet Volume 9.2 fL (7.4-10.4); Nucleated Red Blood Cells % 0.1; Platelet Count 255 10^3/uL (150-450); Red Blood Count 5.43 10^6 /uL (3.70-4.87); Red Cell Distribution Width 17 % (10-15); White Blood Count 6.8 10^3/uL (3.5-10.8)
[2019-01-10] MEDS: celeCOXIB CAP* 100 MG PO SCH (08:27)
[2019-01-10] MEDS: Gabapentin CAP(*) 100 MG PO SCH ×2 (08:28→13:21)
[2019-01-10] MEDS: Mirtazapine TAB* 15 MG PO SCH (08:28)
[2019-01-10] MEDS: Famotidine TAB* 20 MG PO SCH (08:29)
[2019-01-10] MEDS: Pantoprazole TAB * 40 MG TAB PO SCH (08:30)
[2019-01-10 08:31] LABS: BUN/Creatinine Ratio 13.8 (8-20); Calcium 9.2 mg/dL (8.6-10.3); EGFR African American 87.4 (>60); EGFR Non-African American 72.2 (>60); Magnesium 2.3 mg/dL (1.9-2.7); Potassium 4.4 mmol/L (3.5-5.0)
[2019-01-10] MEDS ORDERED: Oxybutynin TAB* 5 MG PO SCH (09:00)
[2019-01-10] MEDS ORDERED: Aspirin EC TAB* 81 MG TAB.EC PO SCH (09:00)
[2019-01-10] MEDS ORDERED: Regadenoson* 0.4 MG/5 ML SYRINGE ONE (09:22)
--- NOTE | 2019-01-10 13:36 | ECHO ---
*[facility]* [place] [address] Fax #: [phone] Transthoracic Echocardiogram Patient: Renee Rao : 1955 Study Date: 01/10/2019 Age: 63 Gender: F HR: 53 bpm Height: 66 in /167.6 cm BSA: 1.77 m^2 Weight: 150.7 lb /68.5 kg BMI: 24.4 kg/m^2 *Counter Hop: * Emilie Mahoney RD *Referring Physician: * Frankie WaldropReading Physician: * Ken Sarabia MD Indications: Chest Pain, unspecified. History: T wave inversion,GERD. Conclusions Summary: - Study data: No prior study is available for comparison. - Left ventricle: Systolic function is normal. The estimated ejection fraction is 55-60%. Wall motion is normal; there are no regional wall motion abnormalities. - Mitral valve: There is mild regurgitation. - Aortic valve: There is no evidence of stenosis. There is no significant regurgitation. - Tricuspid valve: There is trace to mild regurgitation. - Pericardium, extracardiac: There is no pericardial effusion. Study data: Transthoracic echocardiogram. Procedure: Transthoracic echocardiography was performed. Image quality was good. Complete 2D, spectral Doppler, and color flow Doppler. Patient status: Observation. Patient room number: 445-1. No prior study is available for comparison. Rhythm: Bradycardia. Findings Left ventricle: The cavity size is normal. Wall thickness is normal. Systolic function is normal. The estimated ejection fraction is 55-60%. Wall motion is normal; there are no regional wall motion abnormalities. Doppler parameters are consistent with abnormal left ventricular relaxation (grade 1 diastolic dysfunction). Right ventricle: Well visualized. The cavity size is normal. Wall thickness is normal. Systolic function is normal. Ventricular septum: Well visualized. The ventricular septum is normal. Left atrium: Well visualized. The atrium is normal in size. Right atrium: Well visualized. The atrium is normal in size. Atrial septum: Well visualized. Mitral valve: Well visualized. The leaflets are normal thickness. No echocardiographic evidence for prolapse. There is no evidence of stenosis. There is mild regurgitation. Aortic valve: Well visualized. The valve is trileaflet. The leaflets are normal thickness. There is no evidence of stenosis. There is no significant regurgitation. Tricuspid valve: Well visualized. The leaflets are normal thickness. There is no evidence of stenosis. There is trace to mild regurgitation. Pulmonic valve: Well visualized. The leaflets are normal thickness. There is no evidence of stenosis. There is trace to mild regurgitation. Aorta: The aorta is well visualized and normal size. The aortic root appears normal. The aortic arch appears normal. Pericardium: There is no pericardial effusion. No evidence of pleural fluid accumulation. Pulmonary arteries: Well visualized. Systemic veins: Not well visualized. Pulmonary veins: Visualization of the pulmonary venous anatomy is incomplete, but a significant abnormality is unlikely. Measurements Left ventricle Value Ref Aortic valve Value Ref BRITNI, LAX 4.1 cm 3.8 - José diam, ED 1.7 cm ----- 5.2 José diam/bsa, ED 1.0 cm/m^2 ----- ESD, LAX 2.9 cm 2.2 - Peak v, S 0.81 m/sec ----- 3.5 VTI, S 17.4 cm ----- FS, LAX 29 % 27 - 45 Mean grad, S 1.0 mm Hg ----- PW, ED, LAX 0.8 cm 0.6 - Peak grad, S 3.0 mm Hg ----- 0.9 LVOT/AV, VTI ratio 0.72 ----- FS 29 % 27 - 45 PW, ED 0.8 cm 0.6 - Mitral valve Value Ref 0.9 Peak E 0.6 m/sec ----- PW/ID, ED 0.2 -------- Peak A 0.7 m/sec ----- E', lat josé, TDI (L) 9.3 cm/sec >=10.0 Decel time 292 ms --- -- E/e', lat josé, TDI 6 -------- Peak E/A ratio 0.9 ----- E', med josé, TDI 10.9 cm/sec >=7.0 E/e', med josé, TDI 5 -------- Pulmonic valve Value Ref E', avg, TDI 10.1 cm/sec -------- Peak v, S 0.64 m/sec ----- E/e', avg, TDI 6 <=14 Peak grad, S 2.0 mm Hg --- -- LVOT Value Ref Tricuspid valve Value Ref Peak susana, S 0.5 m/sec -------- TR peak v 2.06 m/sec <=2.8 VTI, S 12.5 cm -------- Peak RV-RA grad, S 17 mm Hg ----- Mean grad, S 1 mm Hg -------- Max TR susana 2.06 m/sec ----- Ventricular septum Value Ref Aortic root Value Ref IVS, ED 0.9 cm 0.6 - Root diam 2.9 cm <4.0 0.9 Root max diam, ED 2.9 cm <4.0 Right ventricle Value Ref Ascending aorta Value Ref BRITNI, LAX 2.8 cm -------- AAo AP diam, S 2.6 cm ----- AAo AP diam/bsa, S 1.5 cm/m^2 ----- Left atrium Value Ref ML dim, A4C 3.3 cm -------- Aortic arch Value Ref SI dim, A4C 4.2 cm -------- Arch diam 1.6 cm ----- Right atrium Value Ref Decending aorta Value Ref SI dim, ES 4.1 cm 3.4 - Elizabeth peak susana 0.51 m/sec ----- 5.3 ML dim, ES, A4C 3.7 cm 2.6 - 4.4 SI dim, ES, A4C 4.1 cm 3.4 - 5.3 SI dim/bsa, ES, 2.3 cm/m^2 1.9 - A4C 3.1 Estimated RAP 8 mm Hg -------- Legend: (L) and (H) arnel values outside specified reference range. Prepared and electronically signed by Ken Sarabia MD 01/10/2019 13:36
[2019-01-10] MEDS: Al Hydrox/Mg Hydrox/Simet LIQ* 30 ML UDC PO PRN (15:03)
[2019-01-10 17:05] VITALS: BP 139/82
--- NOTE | 2019-01-11 02:45 | DS ---
DISCHARGE SUMMARY: DATE OF ADMISSION: 01/09/19 DATE OF DISCHARGE: 01/10/19 PROVIDER: Riya Winter NP PRIMARY CARE PROVIDER: Fatou Coker NP ATTENDING PHYSICIAN WHILE IN THE HOSPITAL: Dr. Katelynn Greenwood * (dictated by Riya Winter NP) PRIMARY DIAGNOSES: 1. Chest pain, noncardiac. 2. Hyperlipidemia. SECONDARY DIAGNOSES: 1. Anemia. 2. Gastroesophageal reflux disease. 3. Arthritis. 4. Anxiety. 5. Chronic pain. STUDIES COMPLETED WHILE IN THE HOSPITAL: The patient had a transthoracic echocardiogram. Findings: Left ventricular systolic function is normal. Estimated ejection fraction 55% to 60%. Wall motion is normal. There is no regional wall motion abnormalities. Mitral valve, there is mild regurgitation. Aortic valve, there is no evidence of stenosis. There was no significant regurgitation. Tricuspid valve, there is trace to mild regurgitation. Pericardium extracardiac, there is no pericardial effusion. She had a CTA of the chest, radiologist's impression, no acute findings. There was no pulmonary embolic disease, no aortic aneurysm or dissection. She had a nuclear stress test, no evidence of infarct or ischemia, low risk. DISCHARGE MEDICATIONS: New home medication: 1. Atorvastatin 20 mg p.o. daily. Continued home medications: 1. MiraLAX 17 g p.o. daily p.r.n. constipation. 2. Estradiol insert vaginally. 3. Atarax 25 mg p.o. at bedtime. 4. Oxybutynin 5 mg p.o. daily. 5. Maalox 10 mL q.4 hours as needed for indigestion. 6. Latuda 40 mg at bedtime. 7. Imodium 2 mg p.o. daily p.r.n. 8. Zantac 150 mg p.o. b.i.d. 9. Protonix 40 mg p.o. daily. 10. Sertraline 10 mg p.o. at bedtime p.r.n. 11. Acetaminophen 650 mg p.o. q.4 hours p.r.n. 12. Clonazepam 0.5 mg p.o. t.i.d. 13. Kenalog topically b.i.d. p.r.n. 14. Celebrex 100 mg p.o. b.i.d. 15. Gabapentin 300 mg at bedtime. 16. Gabapentin 100 mg at 8 a.m. and 12 p.m. 17. Multivitamin 1 tab p.o. daily. 18. Mirtazapine 15 mg p.o. b.i.d. 19. Atorvastatin 20 mg p.o. daily. HISTORY OF PRESENT ILLNESS AND HOSPITAL COURSE: Ms. Rao is a 63-year-old female who presented to the emergency room from [facility] with complaints of chest pain starting about 5:30 this morning in right side of her chest, rated at a 7 to 10, associated with exertion and shortness of breath. When initially contacted by the emergency room, the patient's chest pain had resolved with aspirin and nitroglycerin. EKG was done in the emergency room that showed T- wave inversion. The patient continued to have an inconsistent story, reported that the chest pain comes and goes. She does report today on evaluation that her chest pain continues to come and go. It is relieved with food and Maalox. At the time of evaluation, the patient is currently not having any chest pain. She denies any abdominal pain. She is tolerating her lunch without difficulty. Overnight, the patient had an episode of chest pain. She did receive a CT of the chest that showed no pulmonary embolism, no aortic dissection. She subsequently underwent a nuclear stress test that was low risk, showed no reversible ischemia and at this time she is stable for discharge home. REVIEW OF SYSTEMS: The patient denies fevers, chills, or unintended weight loss. She does report on and off chest pain that has currently resolved at this time. She denies any abdominal pain, nausea, vomiting, diarrhea. She denies any hematuria, dysuria, focal weakness or sensory loss. Denies any visual complaints, dysphagias, arthralgias, myalgias, rashes, lesions or open sores. PHYSICAL EXAM: General: At this time, Ms. Rao is is alert and oriented, sitting in her hospital bed. She is in no acute distress. HEENT: Head is atraumatic, normocephalic. Eyes: EOMs are intact. Sclerae anicteric and not pale. Oral mucosa appeared to be moist. Neck is supple. Lungs are clear to auscultation bilaterally. No wheezes, rales, or rhonchi. Cardiac: S1, S2. Regular rate and rhythm. No murmurs, rubs, or gallops. Abdomen: Soft and nontender. Bowel sounds are present x4. Extremities: She is able to move all 4 extremities. There is no clubbing or cyanosis. There is no edema. Pedal pulses are +2 bilaterally. Skin is intact. Neurologic: She is awake, alert, and oriented x3. Speech is clear. Thought process is intact. There are no gross focal deficits. At this time, Ms. Rao is stable for discharge home. Vital Signs: Blood pressure 123/79, heart rate 66, respirations 16, O2 saturation 100%, temperature was 98.3. DISCHARGE PLAN: Ms. Rao will be discharged back to [facility]. Activity as tolerated. 1. Chest pain. Her chest pain appears to be noncardiac at this time. She has had a negative stress test. Her transthoracic echocardiogram was within normal limits. She does report that her chest pain is relieved with Maalox and food. I will continue her Zantac and Protonix as previously prescribed. I would recommend that she follow up with Gastroenterology as an outpatient for further evaluation of possible GI related source of her intermittent episodes of chest pain. 2. Hyperlipidemia. The patient was known to have an LDL of 119. I did place her on atorvastatin 20 mg p.o. daily. 3. Gastroesophageal reflux disease: I would continue her on Protonix and Zantac as previously prescribed. She could have Maalox every 4 hours as needed for continued indigestion symptoms. 4. Chronic pain. She should resume her home medications as previously prescribed. The patient should follow up with her primary care provider in 4 to 7 days for further evaluation of her upper chest pain, noncardiac. I would recommend consultation from Gastroenterology for further evaluation for possible GI source of her chest pain as at this time she has had a negative cardiac workup. The patient should return to the emergency room for significant worsening chest pain, shortness of breath, or any other concerning symptoms. I have discussed with my attending, Dr. Katelynn Greenwood; she is in agreement with my plan. RIYA WINTER, ALEX [id number]/[facility] #: [id number] EMILIANO
== END 2019-01-10 18:00 | disposition home or self-care (01) ==
LOC: ED 08:59 → MEDTELE 13:04
PROVIDERS: ADMIT Internal Medicine; ATTEND Internal Medicine
DX: R07.89 Other chest pain (principal); E78.5 Hyperlipidemia, unspecified; D64.9 Anemia, unspecified; K21.9 Gastro-esophageal reflux disease without esophagitis; M19.90 Unspecified osteoarthritis, unspecified site; F41.9 Anxiety disorder, unspecified; G89.29 Other chronic pain; Z79.899 Other long term (current) drug therapy; R06.02 Shortness of breath; F32.9 Major depressive disorder, single episode, unspecified; Z87.891 Personal history of nicotine dependence; R94.31 Abnormal electrocardiogram [ECG] [EKG]
CPT/HCPCS: 36415; 71045; 71275; 78452; 80048; 80053; 80061; 83036; 83735; 84100; 84484; 85025; 85379; 85610; 93005; 93017; 93306; 96372; 96374; 99285; A9270-GY; A9502; G0378; J1644; J2270; J2785; Q9967

== ENCOUNTER 2019-01-20 20:10 | Emergency (ER) | payer OTHER ==
[2019-01-20 21:04] LABS: Urine Appearance Clear; Urine Bacteria 1+ (Absent); Urine Bilirubin Negative (Negative); Urine Blood Negative (Negative); Urine Color Straw; Urine Glucose Negative (Negative); Urine Ketones Negative (Negative); Urine Nitrite Negative (Negative); Urine Protein Negative (Negative); Urine Red Blood Cell 1+(3-5/hpf) (Absent); Urine Specific Gravity 1.002 (1.010-1.030); Urine Squamous Epithelial Cell Present (Absent); Urine Urobilinogen Negative (Negative); Urine White Blood Cell Trace(0-5/hpf) (Absent)
[2019-01-20 21:06] LABS: ABS Basophils 0.1 10^3/ul (0-0.2); ABS Eosinophils 0.4 10^3/ul (0-0.6); ABS Lymphocytes 1.9 10^3/ul (1.0-4.8); ABS Monocytes 0.4 10^3/ul (0-0.8); ABS Neutrophils 3.6 10^3/ul (1.5-7.7); Eosinophil % 6.4 %; Hematocrit 35 % (35-47); Lymphocyte % 29.8 %; Mean Corpuscular HGB Conc 31 g/dL (31-36); Mean Corpuscular Hemoglobin 22 pg (27-31); Mean Corpuscular Volume 70 fL (80-97); Mean Platelet Volume 8.4 fL (7.4-10.4); Nucleated Red Blood Cells % 0.1; Platelet Count 263 10^3/uL (150-450); Red Cell Distribution Width 16 % (10-15); White Blood Count 6.3 10^3/uL (3.5-10.8)
[2019-01-20 21:21] LABS: Albumin 3.9 g/dL (3.2-5.2); Albumin/Globulin Ratio 1.2 (1-3); BUN/Creatinine Ratio 18.1 (8-20); C Reactive Protein 4.41 mg/L (<8.01); Calcium 8.8 mg/dL (8.6-10.3); EGFR African American 98.7 (>60); EGFR Non-African American 81.6 (>60); Globulin 3.2 g/dL (2-4); Potassium 3.9 mmol/L (3.5-5.0); Total Bilirubin 0.2 mg/dL (0.2-1.0); Total Protein 7.1 g/dL (6.4-8.9)
--- NOTE | 2019-01-20 21:30 | ED ---
HPI Chest Pain - HPI Summary HPI Summary: Patient from [facility] tells inconsistent history of a complains of upper right anterior chest pain with movement of trunk and right arm. Patient alternatively states it started 2 days ago, then states it started today. Denies trauma, fever, cough, sore throat, SOB, N/V/D, abdominal pain, change in urine, change in BM. Patient has history of recent admission for chest pain with negative nuclear stress test, negative PE, negative CTA, negative chest x-ray. Discharge summary states chest pain was often relieved with food or Maalox. Patient was discharged with Protonix and Zantac' s and recommended GI Eval. Patient states current chest pain is different from prior, not affected by eating. Pain only with movement. No pain when sitting or at rest. Patient states she is compliant with Zantac and Protonix. - History of Current Complaint Chief Complaint: EDChestWallPain Time Seen by Provider: 01/20/19 20:25 Hx Obtained From: Patient Onset/Duration: Started Hours Ago Timing: Intermittent Initial Severity: Moderate Current Severity: Moderate Pain Intensity: 8 Pain Scale Used: 0-10 Numeric Chest Pain Location: Right Anterior Chest Pain Radiates: No Character: Sharp/Stabbing Aggravating Factor(s): Movement Alleviating Factor(s): Position Associated Signs and Symptoms: Positive: Chest Pain - Additional Pertinent History Primary Care Physician: SURAJ - Allergy/Home Medications Allergies/Adverse Reactions: Allergies Allergy/AdvReac Type Severity Reaction Status Date / Time Sulfa (Sulfonamide Allergy Vomiting Verified 01/09/19 09:13 Antibiotics) ENVIRONMENTAL Allergy SINUS Uncoded 01/09/19 09:13 SYMPTOMS Home Medications: Home Medications Docusate CAP* [Colace Cap*] 100 mg PO BID 01/20/19 [History Confirmed 01/20/19] Lactulose* 15 ml PO DAILY PRN 01/20/19 [History Confirmed 01/20/19] Ondansetron ODT TAB* [Zofran 4 MG Odt TAB*] 4 mg PO Q6H PRN 01/20/19 [History Confirmed 01/20/19] Simethicone TAB* [Mylicon TAB*] 125 mg PO Q6HR PRN 01/20/19 [History Confirmed 01/20/19] clonazePAM TAB(*) [KlonoPIN TAB(*)] 0.5 mg PO QAM PRN 01/20/19 [History Confirmed 01/20/19] hydrOXYzine HCL TAB* [Atarax 25 MG TAB*] 25 mg PO BEDTIME PRN 01/20/19 [History Confirmed 01/20/19] PMH/Surg Hx/FS Hx/Imm Hx Endocrine/Hematology History: Reports: Hx Anemia Denies: Hx Diabetes Cardiovascular History: Reports: Hx Angina Denies: Hx Congestive Heart Failure, Hx Coronary Artery Disease, Hx Hypercholesterolemia, Hx Hypertension, Hx Myocardial Infarction, Hx Pacemaker/ ICD, Hx Valvular Heart Disease Respiratory History: Denies: Hx Asthma, Hx Chronic Obstructive Pulmonary Disease (COPD) GI History: Reports: Hx Gastroesophageal Reflux Disease, Hx Ulcer, Other GI Disorders - GASTRITIS- TAKES MAALOX FOR GASTRITIS History: Denies: Hx Chronic Renal Failure, Hx Renal Disease Musculoskeletal History: Reports: Hx Arthritis - HANDS AND FEET Sensory History: Reports: Hx Contacts or Glasses - GLASSES Denies: Hx Hearing Aid Opthamlomology History: Reports: Hx Contacts or Glasses - GLASSES Neurological History: Denies: Hx CVA Psychiatric History: Reports: Hx Anxiety, Hx Depression, Hx Schizophrenia Denies: Hx Eating Disorder, Hx Panic Disorder - Cancer History Cancer Type, Location and Year: [facility] CONCERNED BUT BIOPSY NEGATIVE,PER PT. Hx Chemotherapy: No Hx Radiation Therapy: No - Surgical History Surgery Procedure, Year, and Place: biopsy on breast-DR. DIAZ'S OFFICE, [place] [facility] [place] Anesthesia Reactions: No - Immunization History Date of Tetanus Vaccine: unknown Date of Influenza Vaccine: unknown Infectious Disease History: Yes Infectious Disease History: Denies: History Other Infectious Disease, Traveled Outside the [place] in Last 30 Days - Family History Known Family History: Positive: Seizure Disorder, Other - Sister has CA. Negative: Cardiac Disease, Hypertension, Diabetes Family History: Bipolar, schizophrenia, depression - Social History Alcohol Use: None Hx Substance Use: No Substance Use Type: Reports: None Hx Tobacco Use: Yes Smoking Status (MU): Former Smoker Amount Used/How Often: 4-5 CIGARETTES PER DAY X UNKNOWN AMOUNT OF YEARS Have You Smoked in the Last Year: No Review of Systems Constitutional: Negative Eyes: Negative ENT: Negative Positive: Chest Pain Respiratory: Negative Gastrointestinal: Negative Genitourinary: Negative Musculoskeletal: Negative Skin: Negative Neurological: Negative Psychological: Normal All Other Systems Reviewed And Are Negative: Yes Physical Exam Triage Information Reviewed: Yes Vital Signs On Initial Exam: Initial Vitals Temp Pulse Resp BP Pulse Ox 98.3 F 80 18 147/99 96 01/20/19 20:19 01/20/19 20:19 01/20/19 20:19 01/20/19 20:19 01/20/19 20:19 Vital Signs Reviewed: Yes Appearance: Positive: Well-Appearing Skin: Positive: Warm Head/Face: Positive: Normal Head/Face Inspection Eyes: Positive: Normal Neck: Positive: Supple Respiratory/Lung Sounds: Positive: Clear to Auscultation Cardiovascular: Positive: Normal Abdomen Description: Positive: Nontender Musculoskeletal: Positive: Normal Neurological: Positive: Normal Psychiatric: Positive: Normal AVPU Assessment: Alert - Armani Coma Scale Best Eye Response: 4 - Spontaneous Best Motor Response: 6 - Obeys Commands Best Verbal Response: 5 - Oriented Coma Scale Total: 15 Procedures - Sedation Patient Received Moderate/Deep Sedation with Procedure: No Diagnostics - Vital Signs Vital Signs Temp Pulse Resp BP Pulse Ox 01/20/19 20:53 80 22 149/89 98 01/20/19 20:23 81 10 147/99 97 01/20/19 20:22 81 99 01/20/19 20:19 98.3 F 80 18 147/99 96 - Laboratory Lab Results: Lab Results 01/20/19 01/20/19 01/20/19 Range/Units 20:45 20:56 20:56 WBC 6.3 (3.5-10.8) 10^3/uL RBC 5.00 H (3.70-4.87) 10^6 /uL Hgb 11.0 L (12.0-16.0) g/dL Hct 35 (35-47) % MCV 70 L (80-97) fL MCH 22 L (27-31) pg MCHC 31 (31-36) g/dL RDW 16 H (10-15) % Plt Count 263 (150-450) 10^3/uL MPV 8.4 (7.4-10.4) fL Neut % (Auto) 56.8 % Lymph % (Auto) 29.8 % [place] % (Auto) 5.9 % Eos % (Auto) 6.4 % Baso % (Auto) 1.1 % Absolute Neuts (auto) 3.6 (1.5-7.7) 10^3/ul Absolute Lymphs (auto) 1.9 (1.0-4.8) 10^3/ul Absolute Monos (auto) 0.4 (0-0.8) 10^3/ul Absolute Eos (auto) 0.4 (0-0.6) 10^3/ul Absolute Basos (auto) 0.1 (0-0.2) 10^3/ul Absolute Nucleated RBC 0.0 10^3/ul Nucleated RBC % 0.1 Sodium 140 (135-145) mmol/L Potassium 3.9 (3.5-5.0) mmol/L Chloride 108 (101-111) mmol/L Carbon Dioxide 28 (22-32) mmol/L Anion Gap 4 (2-11) mmol/L BUN 13 (6-24) mg/dL Creatinine 0.72 (0.51-0.95) mg/dL Est GFR ( Amer) 98.7 (>60) Est GFR (Non-Af Amer) 81.6 (>60) BUN/Creatinine Ratio 18.1 (8-20) Glucose 109 H (70-100) mg/dL Calcium 8.8 (8.6-10.3) mg/dL Total Bilirubin 0.20 (0.2-1.0) mg/dL AST 17 (13-39) U/L ALT 15 (7-52) U/L Alkaline Phosphatase 93 (34-104) U/L Troponin I 0.00 (<0.04) ng/mL C-Reactive Protein 4.41 (<8.01) mg/L Total Protein 7.1 (6.4-8.9) g/dL Albumin 3.9 (3.2-5.2) g/dL Globulin 3.2 (2-4) g/dL Albumin/Globulin Ratio 1.2 (1-3) Lipase 30 (11.0-82.0) U/L TSH Pending Urine Color Straw Urine Appearance Clear Urine pH 6.0 (5-9) Ur Specific [place] 1.002 L (1.010-1.030) Urine Protein Negative (Negative) Urine Ketones Negative (Negative) Urine Blood Negative (Negative) Urine Nitrate Negative (Negative) Urine Bilirubin Negative (Negative) Urine Urobilinogen Negative (Negative) Ur Leukocyte Esterase 1+ A (Negative) Urine WBC (Auto) Trace(0-5/hpf) (Absent) Urine RBC (Auto) 1+(3-5/hpf) A (Absent) Ur Squamous Epith Cells Present A (Absent) Calcium Oxalate Crystal Present A (Absent) Urine Bacteria 1+ A (Absent) Urine Glucose Negative (Negative) Result Diagrams: 01/20/19 20:56 01/20/19 20:56 Lab Statement: Any lab studies that have been ordered have been reviewed, and results considered in the medical decision making process. Chest Pain Course/Dx - Course Course Of Treatment: Patient from [facility] tells inconsistent history of a complains of upper right anterior chest pain with movement of trunk and right arm. Patient alternatively states it started 2 days ago, then states it started today. Denies trauma, fever, cough, sore throat, SOB, N/V/D, abdominal pain, change in urine, change in BM. Patient has history of recent admission 01/10/19 for chest pain with negative nuclear stress test, negative PE , negative CTA, negative chest x-ray. Discharge summary states chest pain was often relieved with food or Maalox. Patient was discharged with Protonix and Zantac's and recommended GI Eval. Patient states current chest pain is different from prior, not affected by eating. Pain only with movement. No pain when sitting or at rest. Patient states she is compliant with Zantac and Protonix. Vital signs within normal limits. Labs within normal limits. Patient baseline. X-ray of chest and ribs negative. Likely diagnosis musculoskeletal pain. Patient has existing prescription for Tylenol and Celebrex. Patient has history of recent admission 01/10/19 for chest pain with negative nuclear stress test, negative PE, negative CTA, negative chest x-ray. - Diagnoses Provider Diagnoses: Musculoskeletal pain Discharge ED - Sign-Out/Discharge Documenting (check all that apply): Patient Departure - Discharge Plan Condition: Stable Disposition: HOME Patient Education Materials: Musculoskeletal Pain (ED) Referrals: Fatou Coker NP [Primary Care Provider] - Additional Instructions: Continue taking your Celebrex and Tylenol as prescribed for chest wall pain. Return to the ED for any new or worsening symptoms. - Billing Disposition and Condition Condition: STABLE Disposition: Home
[2019-01-20 21:41] LABS: TSH (Thyroid Stimulating Horm) 1.29 mcIU/mL (0.34-5.60)
[2019-01-20] MEDS ORDERED: Acetaminophen TAB* 325 MG PO ONE (21:56)
--- OUTSIDE RECORDS SUMMARY | 2019-01-20 22:13 | XMS REPORT | Continuity of Care Document ---
:1955 External Reference #:[id number] Author Name Fatou Coker N.P. 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 Onset: 01/16/2011 Anemia Zeny Villegas M.D. Onset: 01/16/2011 Anxiety state Zeny Villegas M.D. Onset: 01/16/2011 Social History Type Date Description Comments Sex Unknown Tobacco Use Start: Unknown End: Former Cigarette Smoker Unknown Smoking Status Reviewed: 01/17/19 Former Cigarette Smoker ETOH Use Has consumed [...] R32 Caryn Antunez, 12/13/2018 2mg Ring months [employer]-Cde Gabapentin take 1 capsule by 90caps Fatou Coker, 11/25/2018 300mg mouth daily at N.P. Capsules bedtime for chronic pain/menopausal Tylenol take 2 tabs po q4 as 60tabs Fatou Coker, 11/25/2018 325mg Tablets needed, prn N.P. Oxybutynin Chloride 1 po qd 30tabs R32 Caryn Antunez, 11/11/2018 ER [employer]-Cde 5mg Tablets ER 24HR Gas Relief Extra Take One Capsule By 120caps Fatou Coker, 11/05/2018 Strength Mouth Four Times A N.P. 125mg Day as Needed Capsules Cerovite Senior take one tablet by 30tabs Fatou Coker, 10/30/2018 mouth every day N.P. Tablets Miralax dissolve 17gr (one 510gm [...] after cleansing and 30units Fatou Coker, 12/17/2017 [id number]/GM drying the affected N.P. Powder area, apply the powder. use 2-3 times daily for 7 days. Acetaminophen ER 1 tab by mouth as 45tabs Biju Alejo NP 11/05/2017 needed pain 650mg Tablets ER Protonix 1 by mouth every day 30tabs Fatou Coker, 08/13/2017 40mg Tablets N.P. Celecoxib Take One Capsule By 60capdebra M85.9 Fatou Coker, 04/23/2017 100mg Mouth Twice A Day N.P. Capsules Lactulose 15 milliliters once 3600ml Biju Alejo NP 09/23/2016 10GM/15ML a day to aid bowel Solution movement Multivitamin Adults one by mouth daily 30tabs [facility], 09/04/2016 50+ N.P. Adt 50+ Tablets Mirtazapine 1 by mouth every 30tabs Fatou [facility], 03/06/2016 7.5mg night at bedtime N.P. Tablets Cetirizine HCL 1 by mouth at 30tabs [facility], 09/05/2015 10mg bedtime as needed N.P. Tablets allergies, prn Ondansetron dissolve 1 tablet on 20tabs [facility], 04/24/2015 4mg tongue every 6-8 N.P. Tablets Dispers hours as needed for vomiting Colace 1 by mouth twice a 180caps [facility], 12/01/2014 100mg Capsules day as needed N.P. constipation Atorvastatin Calcium 1 by mouth every day 30tabs [facility], at bedtime N.P. 20mg Tablets Oxybutynin Chloride One tablet po Caryn Andres, daily [employer]-Cde 5mg Tablets Latuda take 1 tablet by Harini Roa, 40mg Tablets mouth at bedtime MD with a snack for schizophrenia Lotrisone apply externally Unknown 1-0.05% bid-tid Cream Gabapentin take 1 capsule by 60caps Biju Alejo NP 100mg mouth every in the Capsules morning 1 by mouth at noon Hydroxyzine HCL 1 tab by mouth every 60tabs [facility], 25mg morning and take 1 N.P. Tablets tablet at bedtime for anxiety Klonopin 1 by mouth qd Unknown 0.5mg Tablets Pramoxine HCL [facility] d/c summary Unknown 1% Foam 01/06/15- Pramoxine HCl vaginal wipes 1%- apply to affected area 3-4 times a day for vaginal itching. Maalox Max 10 milliliters every 355ml [facility], 4 hours as needed N.P. [id number] Suspension History Medications Hydroxyzine HCL take 1 tablet by 90tabs Fatou Varn, 11/25/2018 - 25mg mouth after N.P. 01/17/2019 Tablets nightly dose as needed (30min after hs dose) for anxiety Oxybutynin Chloride One po bid 60tabs Fatou Coker, 07/20/2018 - 5mg N.P. 11/25/2018 Tablets Immunizations CPT Code Status Date Vaccine Lot # [id number] Given 12/09/2016 Influenza Virus Vaccine, Quadrivalent, Split, Preservative Free [id number] Given 07/08/2013 Tdap - Tetanus/Diptheria/Acellular Pertussis [id number] Given 01/26/2012 Fluvirin Im 3Yrs And Older 28166 Given 01/16/2011 Influenza Virus 3Yrs & Over [id number] Given 04/10/2009 Influenza Virus Vaccine, Pandemic Formulation [id number] Given 04/10/2009 Administration Swine Flu Shot Vital Signs Date Vital Result Comment 01/17/2019 1:40pm Height 65.25 inches 5'5.25" Weight 151.00 lb Heart Rate 99 /min BP Systolic Sitting 132 mmHg Rue reg cuff BP Diastolic Sitting 81 mmHg Rue reg cuff O2 % BldC Oximetry 98 % BMI (Body Mass Index) 24.9 kg/m2 12/22/2018 10:04am Height 65.25 inches 5'5.25" Weight 151.25 lb Heart Rate 98 /min BP Systolic 138 mmHg BP Diastolic 88 mmHg O2 % BldC Oximetry 99 % BMI (Body Mass Index) 25.0 kg/m2 Results Test Acquired Date Facility Test Result H/L Range Note Laboratory test 01/09/2019 [facility] Troponin-I 0.01 ng/mL < 0.04 1 finding [address] ([address]) [place] [address] [phone] Laboratory test 01/09/2019 [facility] Troponin-I 0.01 ng/mL < 0.04 2 finding [address] ([address]) [place] [address] [phone] Comp Metabolic 01/09/2019 [facility] Sodium 140 mmol/L Normal 135-145 Panel [address] [place] [address] [phone] Potassium 3.7 mmol/L Normal 3.5-5.0 Chloride 106 mmol/L Normal 101-111 Co2 Carbon Dioxide 26 mmol/L Normal 22-32 Anion Gap 8 mmol/L Normal 2-11 Glucose 131 mg/dL High 70-100 Blood Urea Nitrogen 11 mg/dL Normal 6-24 Creatinine 0.82 mg/dL Normal 0.51-0.95 BUN/Creatinine Ratio 13.4 Normal 8-20 Calcium 8.9 mg/dL Normal 8.6-10.3 Total Protein 7.3 g/dL Normal 6.4-8.9 Albumin 3.8 g/dL Normal 3.2-5.2 Globulin 3.5 g/dL Normal 2-4 Albumin/Globulin Ratio 1.1 Normal 1-3 Total Bilirubin 0.30 mg/dL Normal 0.2-1.0 Alkaline Phosphatase 94 U/L Normal 34-104 Alt 13 U/L Normal 7-52 Ast 14 U/L Normal 13-39 Egfr Non- 70.2 >60 Egfr 84.9 >60 3 Laboratory test 01/09/2019 [facility] Troponin-I 0.00 <0.04 [address] (TnI) ng/mL [place], [place] [id number] [phone] CBC Auto Diff 01/09/2019 [facility] White Blood 4.8 Normal 3.5 -10.[address] Count 10^3/[place] [address] [phone] Red Blood Count 5.00 10^6/uL High 3.70-4.87 Hemoglobin 11.0 g/dL Low 12.0-16.0 Hematocrit 35 % Normal 35-47 Mean Corpuscular Volume 70 fL Low 80-97 5 Mean Corpuscular Hemoglobin 22 pg Low 27-31 Mean Corpuscular HGB Conc 32 g/dL Normal 31-36 Red Cell Distribution Width 16 % High 10-15 Platelet Count 240 10^3/uL Normal 150-450 Mean Platelet Volume 8.7 fL Normal 7.4-10.4 Abs Neutrophils 3.0 10^3/uL Normal 1.5-7.7 Abs Lymphocytes 1.3 10^3/uL Normal 1.0-4.8 Abs Monocytes 0.3 10^3/uL Normal 0-0.8 Abs Eosinophils 0.2 10^3/uL Normal 0-0.6 Abs Basophils 0.0 10^3/uL Normal 0-0.2 Abs Nucleated RBC 0.0 10^3/uL Granulocyte % 62.4 % Lymphocyte % 26.6 % Monocyte % 6.0 % Eosinophil % 4.1 % Basophil % 0.9 % Nucleated Red Blood Cells % 0.0 Inr/Protime 01/09/2019 [facility] Inr 1.01 Normal 0.82-1.[address] [place], [place] [address] [phone] Laboratory test 01/09/2019 [facility] Hemoglobin A1c 5.7 % High 4.0-5.6 [address] (Glyco HGB) [place], [place] [id number] [phone] Lipid Profile 01/09/2019 [facility] Triglycerides 86 8 (Trig/Chol/HDL) [address] mg/dL [place], [place] [address] [phone] Cholesterol 208 mg/dL 9 HDL Cholesterol 71.9 mg/dL 10 LDL Cholesterol 119 mg/dL 11 Laboratory 01/09/2019 [facility] D Dimer < 200 Normal Less 12 test finding [address] Quantitative ng/[place] [address] [phone] Laboratory 11/21/2018 [facility] D Dimer < 200 Normal Less 13 test finding [address] Quantitative ng/[place] [address] [phone] Laboratory 11/21/2018 [facility] Troponin-I (TnI) 0.00 <0.04 14 test finding [address] ng/[place] [address] [phone] Lipase 16 U/L Normal 11.0-82.0 Laboratory 11/21/2018 [facility] Troponin-I 0.01 <0.04 15 test finding [address] (TnI) ng/mL [place], [place] [address] [phone] CBC Auto Diff 11/21/2018 [facility] White Blood 6.6 Normal 3.5 -10.[address] Count 10^3/[place] [address] [phone] Red Blood Count 5.10 10^6/uL High 3.70-4.87 [...] % Nucleated Red Blood Cells % 0.0 Comp Metabolic 11/21/2018 [facility] Sodium 141 mmol/L Normal 135-[address] [place] [address] [phone] Potassium 3.5 mmol/L Normal 3.5-5.0 Chloride 108 [...] Egfr Non- 64.7 >60 Egfr 78.3 >60 16 CBC Auto 11/20/2018 [facility] White Blood 5.1 10^3/uL Normal 3.5-10.[address] [place] [address] [phone] Red Blood Count 4.96 10^6/uL High 3.70-4.87 Hemoglobin 11.0 g/dL Low 12.0-16.0 Hematocrit 35 % Normal 35-47 Mean Corpuscular Volume 70 fL Low 80-97 17 Mean Corpuscular Hemoglobin 22 pg Low 27-31 [...] Blood Cells % 0.1 Comp Metabolic 11/20/2018 [facility] Sodium 140 mmol/L Normal 135-[address] [place] [address] [phone] Potassium 3.7 mmol/L Normal 3.5-5.0 Chloride 109 [...] Egfr Non- 64.7 >60 Egfr 78.3 >60 18 Laboratory test 11/20/2018 [facility] Troponin-I (TnI) 0.01 < 0.04 [address] ng/[place] [address] [phone] Lipid Profile 11/16/2018 [facility] Triglycerides 113 mg/dL 20, 21 (Trig/Chol/HDL) [address] [place] [address] [phone] Cholesterol 236 mg/dL 22 HDL Cholesterol 84.9 mg/dL 23 LDL Cholesterol 129 mg/dL 24 Hepatitis C Antibody 11/16/2018 [facility] HCV Index 0.06 s/c [address] [place] [address] [phone] Hepatitis C Antibody Negative Negative Laboratory 09/14/2018 [facility] Cytology SEE RESULT 25, 26 test finding [address] [place] [address] [phone] Laboratory 08/25/2018 [employer] Hemosure negative test finding Non-Medicare CBC Auto Diff 08/17/2018 [facility] White Blood 7.4 10^3/uL Normal 3.5- [address] Count 10.8 [place] [address] [phone] Red Blood Count 5.55 10^6/uL High 3.70-4.87 Hemoglobin 12.0 g/dL Normal 12.0-16.0 Hematocrit 39 % Normal 35-47 Mean Corpuscular Volume 71 fL Low 80-97 28 Mean Corpuscular Hemoglobin 22 pg Low 27-31 [...] Blood Cells % 0.1 Laboratory test 08/17/2018 [facility] Ferritin 25.2 ng/mL Normal 11-[address] [place] [address] [phone] Iron & Iron 08/17/2018 [facility] Iron 73 g/dL Normal 50- [address] [place] [address] [phone] Unsaturated Iron Binding < 304 g/dL Total Iron Binding Capacity 319 g/dL Normal 250-450 Transferrin 228 mg/dL Normal 203-362 % Iron Saturation 23 % Normal 15-55 Inr/Protime 08/06/2018 [facility] Inr 1.03 Normal 0.82-1.09 30 [address] [place] [address] [phone] CBC Auto Diff 08/06/2018 [facility] White Blood 5.4 Normal 3.5 -10.8 101 Count 10^3/[place] [address] [phone] Red Blood Count 4.97 10^6/uL High 3.70-4.87 Hemoglobin 10.9 g/dL Low 12.0-16.0 Hematocrit 35 % Normal 35-47 Mean Corpuscular Volume 70 fL Low 80-97 31 Mean Corpuscular Hemoglobin 22 pg Low 27-31 [...] Blood Cells % 0.1 Comp Metabolic 08/06/2018 [facility] Sodium 139 mmol/L Normal 135-145 Panel [address] [place], [place] [address] [phone] Potassium 4.7 mmol/L Normal 3.5-5.0 Chloride 106 [...] Egfr Non- 71.4 >60 Egfr 86.4 >60 32 Laboratory test 08/06/2018 [facility] Troponin-I (TnI) 0.00 ng/ mL <0.04 33 finding [address] [place] [address] [phone] 1 Troponin-I testing on Plasma Separator Tubes (PST) has a known false positive rate of 0.20-0.40%. All positive troponins reflex immediately to secondary confirmatory testing. Using the [employer] DxI 800 Access Immunoassay systems, the 99th percentile upper reference limit was demonstrated to be < 0.03 ng/mL. 2 Troponin-I testing on Plasma Separator Tubes (PST) has a known false positive rate of 0.20-0.40%. All positive troponins reflex immediately to secondary confirmatory testing. Using the [employer] DxI 800 Access Immunoassay systems, the 99th percentile upper reference limit was demonstrated to be < 0.03 ng/mL. 3 Because ethnic data is not always readily [...] 15-29 5 Kidney failure <15 (or dialysis) 4 Troponin-I testing on Plasma Separator Tubes (PST) has a known false positive rate of 0.20-0.40%. All positive troponins reflex immediately to secondary confirmatory testing. Using the [employer] 800 Access Immunoassay systems, the 99th percentile upper reference limit was demonstrated to be < 0.03 ng/mL. 5 Consistent with Previous Results Reported on 11/21/18 6 Standard intensity warfarin therapeutic range: 2.0-3.0 High intensity warfarin therapeutic range: 2.5-3.5 7 Therapeutic target for the treatment of diabetes mellitus patients is <7% HBA1C, and in selective patients <6.0%. Please refer to [place] [employer] diabetic care guidelines for further information. 8 Desirable: <150 Borderline High: 150-199 High: 200-499 Very High: >500 9 Desirable: <200 Borderline High: 200-239 High: >239 10 Low: <40 Desirable: 40-60 High: >60 11 Desirable: <100 Near Optimal: 100-129 Borderline High: 130-159 High: 160-189 Very High: >189 12 Please note: The following may produce a false positive D Dimer test: - Rheumatoid factor greater than 60 IU/ml - Plasma hemoglobin greater than 0.05 gm/dl - Bilirubin greater than 50 mg/dl - Lipids greater than 1000 mg/dl - FDP greater than 20 ug/ml 13 Please note: The following may produce a false positive D Dimer test: - Rheumatoid factor greater than 60 IU/ml - Plasma hemoglobin greater than 0.05 gm/dl - Bilirubin greater than 50 mg/dl - Lipids greater than 1000 mg/dl - FDP greater than 20 ug/ml 14 Troponin-I testing on Plasma Separator Tubes (PST) has a known false positive rate of 0.20-0.40%. All positive troponins reflex immediately to secondary confirmatory testing. Using the [employer] DxI 800 Access Immunoassay systems, the 99th percentile upper reference limit was demonstrated to be < 0.03 ng/mL. 15 Troponin-I testing on Plasma Separator Tubes (PST) has a known false positive rate of 0.20-0.40%. All positive troponins reflex immediately to secondary confirmatory testing. Using the [employer] DxI 800 Access Immunoassay systems, the 99th percentile upper reference limit was demonstrated to be < 0.03 ng/mL. 16 Because ethnic data is not always readily [...] 15-29 5 Kidney failure <15 (or dialysis) 17 Consistent with Previous Results Reported on 08/17/18 18 Because ethnic data is not always [...] 5 Kidney failure <15 (or dialysis) 19 Troponin-I testing on Plasma Separator Tubes (PST) has a known false positive rate of 0.20-0.40%. All positive troponins reflex immediately to secondary confirmatory testing. Using the [employer] DxI 800 Access Immunoassay systems, the 99th percentile upper reference limit was demonstrated to be < 0.03 ng/mL. 20 [id number] 21 Desirable: <150 Borderline High: 150-199 High: 200-499 Very High: >500 22 Desirable: <200 Borderline High: 200-239 High: >239 23 Low: <40 Desirable: 40-60 High: >60 24 Desirable: <100 Near Optimal: 100-129 Borderline High: 130-159 High: 160-189 Very High: >189 25 [id number] 26 SEE RESULT BELOW Name: RENEE LINDSAY E : [address]: Fatou Coker NP Acct: [id number] Unit: [id number] AGE: 63 Location: [facility] Re09/14/18 SEX: F Status: REG REF SPEC: [id number] LADI: 09/14/[address] [facility] [address]: Fatou Coker NP REQ: [id number] RECD: 09/14/18 STATUS: SOUT _ ORDERED: TP IMAGE ANALYS, HPV/Thin Prep, HPV 16/18 GENE COMMENTS: [id number] Negative for Intraepithelial lesion or Malignancy Date Time Test Result Flag (u) Normal Range 09/14/18 1656 HPV RNA RFLX GE Negative Negative The [...] Signed by and Reported on: TURNER Bernal(ASCP) 1028 This Pap test was evaluated with the assistance of the [employer] BiochemPrep Test Imaging System. Due to cytologic findings at the mergers and acquisitions attorney microscope, comprehensive manual rescreening by a Gang Worker may be required. The Pap Smear is [...] years. END OF REPORT DEPARTMENT OF PATHOLOGY, [address] [place] [address] Rob Kim M.D. Director [facility] # [id number] 27 [id number] [place] 28 Consistent with Previous Results Reported on 08/06/18 29 [id number] [place] 30 Standard intensity warfarin therapeutic range: 2.0-3.0 High intensity warfarin therapeutic range: 2.5-3.5 31 Consistent with Previous Results Reported on 07/03/18. 32 Because ethnic data is not always readily [...] 15-29 5 Kidney failure <15 (or dialysis) 33 Troponin-I testing on Plasma Separator Tubes (PST) has a known false positive rate of 0.20-0.40%. All positive troponins reflex immediately to secondary confirmatory testing. Using the [employer] DxI 800 Access Immunoassay systems, the 99th percentile upper reference limit was demonstrated to be < 0.03 ng/mL. Procedures Date Code Description Status 11/23/2018 55700 Stress Test Completed 02/12/2018 [id number] Mammogram Completed 07/28/2016 [id number] Mammogram Completed 09/20/2015 [id number] Colonoscopy Completed 07/26/2015 [id number] Mammogram Completed 02/25/2011 [id number] Bone Mineral Density Test Completed 02/25/2011 [id number] Mammogram Completed 11/28/2008 [id number] Mammogram Completed 06/22/2007 [id number] Mammogram Completed Medical Devices Description No Information Available Encounters Type Date Location Provider Dx Diagnosis Office Visit 12/22/[address] [facility] Caryn Antunez, N39.46 Mixed incontinence 10:00a [facility] WE[employer]-Cde N95.2 Postmenopausal atrophic vaginitis Office Visit 12/13/2018 11:30a [facility] Caryn Antunez, N39.46 Mixed incontinence [facility] WE[employer]-Cde N95.2 Postmenopausal atrophic vaginitis Office Visit 11/25/2018 10:40a [facility] Internal Kitty Rajan R07.89 Other chest pain Medicine - MD [facility] Office Visit 11/11/2018 2:00p 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 pain D64.9 Anemia, unspecified R14.0 Abdominal distension (gaseous) Assessments Date Code Description Provider 01/17/2019 R07.89 Other chest pain Fatou Coker, N.P. 01/17/2019 R14.0 Abdominal distension (gaseous) Fatou Coker, N.P. 01/17/2019 E78.00 Pure hypercholesterolemia, unspecified Fatou Coker, N.P. 12/22/2018 N39.46 Mixed incontinence Caryn Antunez, [employer]-Cde 12/22/2018 N95.2 Postmenopausal atrophic vaginitis Caryn Antunez WE[employer]-Cde 12/13/2018 N39.46 Mixed incontinence Caryn Antunez, [employer]-Cde 12/13/2018 N95.2 Postmenopausal atrophic vaginitis Caryn Antunez, [employer]-Cde 11/25/2018 R07.89 Other chest pain Kitty Rajan MD 11/23/2018 R07.89 Other chest pain Brianda Vance M.D. 11/23/2018 R07.89 Other chest pain Fatou Coker, N.P. 11/11/2018 R32 Unspecified urinary incontinence Caryn Antunez, [employer]-Cde 11/11/2018 N95.2 Postmenopausal atrophic vaginitis Caryn Antunez, [facility] 11/09/2018 Z00.00 Encounter for general adult medical Deena Santoyo MD examination without abnormal findings 11/09/2018 R32 Unspecified urinary incontinence Deena Santoyo MD 11/09/2018 K59.00 Constipation, unspecified Deena Snatoyo MD 09/14/2018 Z01.419 Encounter for gynecological Fatou Coker N.PLucretia examination (general) (routine) 09/14/2018 R07.89 Other chest pain Fatou Coker, N.P. 08/25/2018 D64.9 Anemia, unspecified Nurse Visit A 08/13/2018 R07.89 Other chest pain Fatou Coker, N.P. 08/13/2018 D64.9 Anemia, unspecified Fatou Coker, N.P. 08/13/2018 R14.0 Abdominal distension (gaseous) Fatou Coker N.Abdifatah Plan of Treatment Future Appointment(s):03/21/2019 10:40 am - Fat[facility]oker N.P. at [facility] 1:30 pm - [facility] [place] [facility]01/17/2019 - Fatou Coker NZhengR07.89 Other chest painComments:I believe your chest pain is related your stomach issues. I am referring to a specialist for furtherevaluation. Pleased continue to take all of your medications.I would advise you to avoid s icy, greasy, and acidic foods.R14.0 Abdominal distension (gaseous)Referral:Buffy France NP, Family/NPE78.00 Pure hypercholesterolemia, unspecified Functional Status Description No Information Available Mental Status Description No Information Available Referrals Refer to Reason for Referral Status Appt Date Buffy France NP Patient with chest pain - had a full cardiac Created evaluation that was negative. She has a lot of bloating, gas and issues with constipation and diarrhea. Referred for evaluation [address] [place] [address] [phone] Abby Sotomayor MD Patient with cystocele causing urinary Sent 11/11/2018 incontinence, she is not interested or able to undergo pelvic floor PT. Already on oxybutynin [address] [place] [address] [phone]
[2019-01-20 22:50] VITALS: BP 0/0
== END 2019-01-20 22:49 | disposition home or self-care (01) ==
LOC: ED 20:10
DX: M79.18 Myalgia, other site (principal); D64.9 Anemia, unspecified; K21.9 Gastro-esophageal reflux disease without esophagitis; F41.9 Anxiety disorder, unspecified; F31.9 Bipolar disorder, unspecified; F20.9 Schizophrenia, unspecified; Z87.891 Personal history of nicotine dependence; Z79.899 Other long term (current) drug therapy; Z88.2 Allergy status to sulfonamides
CPT/HCPCS: 36415; 71046; 80053; 81003; 81015; 83690; 84443; 84484; 85025; 86140; 87086; 93005; 99282; A9270-GY

== ENCOUNTER 2019-06-07 16:51 | Emergency (ER) | payer OTHER ==
--- NOTE | 2019-06-07 17:06 | ED ---
GI/ HPI - HPI Summary HPI Summary: This patient is a 63 y/o female presenting to [facility] via EMS c/o foul smelling urine and abdominal distension. Patient reports she has been having these symptoms for the last couple of months but they have become worse. She states last night she had urinary frequency. Patient notes she has been feeling "bloated" and "gassy." She reports diarrhea. She states this morning she felt dizzy, described as off balance, and also nauseous. Patient notes she has been wearing depends as she is also incontinent of urine. Denies any pain with urination, fever, vaginal bleeding, vaginal discharge. Denies any hx of UTI. Her PCP is Fatou Coker NP. Patient lives in [place]. She states she has a son in town who is "young" but does not know his age. PMHx includes high cholesterol, GERD, IBS, schizophrenia. Patient does take medications but unable to remember the names of them. Denies tobacco, alcohol, drug use. NKDA. Medications reviewed. Allergies noted. - History of Current Complaint Time Seen by Provider: 06/07/19 16:52 Stated Complaint: BLADDER DISCOMFORT PER EMS Hx Obtained From: Patient Onset/Duration: Started Weeks Ago, Still Present Timing: Lasting Weeks Current Severity: Mild Associated Signs and Symptoms: Positive: Dizziness, Nausea, Diarrhea, UTI Symptoms - urinary frequency, foul smelling urine, Other: - POSITIVE: abdominal bloating.. Negative: Fever, Dysuria Additional Signs & Symptoms: Negative: Vaginal Bleeding, Vaginal Discharge Aggravating Factor(s): Nothing Alleviating Factor(s): Nothing - Additional Pertinent History Primary Care Physician: [id number] - Allergy/Home Medications Allergies/Adverse Reactions: Allergies Allergy/AdvReac Type Severity Reaction Status Date / Time Sulfa (Sulfonamide Allergy Vomiting Verified 02/22/19 14:10 Antibiotics) ENVIRONMENTAL Allergy SINUS Uncoded 02/22/19 14:10 SYMPTOMS Home Medications: Home Medications Gabapentin CAP(*) [Neurontin 300 CAP(*)] 300 mg PO BEDTIME 05/02/15 [History Confirmed 06/07/19] Pantoprazole TAB * [Protonix TAB*] 40 mg PO DAILY 05/02/15 [History Confirmed ] Cetirizine* [ZyrTEC 10 MG TAB*] 10 mg PO BEDTIME PRN 10/22/15 [History Confirmed 06/07/19] Mirtazapine TAB* [Remeron TAB*] 15 mg PO BEDTIME 02/27/16 [History Confirmed ] celeCOXIB CAP* [Celebrex CAP*] 100 mg PO BID 05/12/16 [History Confirmed ] Gabapentin CAP(*) [Neurontin 100 mg CAP(*)] 100 mg PO ..QAM & AT NOON 05/17/17 [ History Confirmed 06/07/19] Loperamide CAP* [Imodium CAP*] 2 mg PO DAILY PRN 05/17/17 [History Confirmed ] Mag Hydrox/Aluminum Hyd/Simeth [Maalox Maximum Strength Susp] 10 ml PO Q4H PRN 05/17/17 [History Confirmed 06/07/19] Acetaminophen TAB* [Tylenol TAB*] 650 mg PO Q4H PRN 07/01/18 [History Confirmed 06/07/19] Multivit-Min/Iron/Folic/Lutein [Centrum Silver Women Tablet] 1 tab PO DAILY [History Confirmed 06/07/19] Ranitidine TAB (NF) [Zantac TAB (NF)] 150 mg PO BID 08/06/18 [History Confirmed 06/07/19] Estradiol [Imvexxy] 1 insert VAGINAL SEE INSTRUCTIONS 01/09/19 [History Confirmed 06/07/19] Polyethylene Glycol 3350 [Miralax] 17 gm PO DAILY PRN 01/09/19 [History Confirmed 06/07/19] Docusate CAP* [Colace Cap*] 100 mg PO BID PRN 01/20/19 [History Confirmed ] Lactulose* 15 ml PO DAILY PRN 01/20/19 [History Confirmed 06/07/19] Ondansetron ODT TAB* [Zofran 4 MG Odt TAB*] 4 mg PO Q6H PRN 01/20/19 [History Confirmed 06/07/19] Simethicone TAB* [Mylicon TAB*] 125 mg PO Q6HR PRN 01/20/19 [History Confirmed 06/07/19] clonazePAM TAB(*) [KlonoPIN TAB(*)] 0.5 mg PO Q4H PRN 01/20/19 [History Confirmed 06/07/19] hydrOXYzine HCL TAB* [Atarax 25 MG TAB*] 25 mg PO BID 01/20/19 [History Confirmed 06/07/19] Atorvastatin* [Lipitor*] 20 mg PO DAILY 02/08/19 [History Confirmed 06/07/19] Lurasidone(*) [Latuda] 40 mg PO BEDTIME 02/08/19 [History Confirmed 06/07/19] PMH/Surg Hx/FS Hx/Imm Hx Endocrine/Hematology History: Reports: Hx Anemia Denies: Hx Diabetes Cardiovascular History: Reports: Hx Angina Denies: Hx Congestive Heart Failure, Hx Coronary Artery Disease, Hx Hypercholesterolemia, Hx Hypertension, Hx Myocardial Infarction, Hx Pacemaker/ ICD, Hx Valvular Heart Disease Respiratory History: Denies: Hx Asthma, Hx Chronic Obstructive Pulmonary Disease (COPD) GI History: Reports: Hx Gastroesophageal Reflux Disease, Hx Ulcer, Other GI Disorders - GASTRITIS- TAKES MAALOX FOR GASTRITIS History: Denies: Hx Chronic Renal Failure, Hx Renal Disease Musculoskeletal History: Reports: Hx Arthritis - HANDS AND FEET Sensory History: Reports: Hx Contacts or Glasses - GLASSES Denies: Hx Hearing Aid Opthamlomology History: Reports: Hx Contacts or Glasses - GLASSES Neurological History: Denies: Hx CVA Psychiatric History: Reports: Hx Anxiety, Hx Depression, Hx Schizophrenia Denies: Hx Eating Disorder, Hx Panic Disorder - Cancer History Cancer Type, Location and Year: [facility] CONCERNED BUT BIOPSY NEGATIVE,PER PT. Hx Chemotherapy: No Hx Radiation Therapy: No - Surgical History Surgery Procedure, Year, and Place: biopsy on breast[place]DR. DIAZ'S OFFICE, [place] [facility] [place] Anesthesia Reactions: No - Immunization History Date of Tetanus Vaccine: unknown Date of Influenza Vaccine: unknown Infectious Disease History: Denies: History Other Infectious Disease - Family History Known Family History: Positive: Seizure Disorder, Other - Sister has CA. Negative: Cardiac Disease, Hypertension, Diabetes Family History: Bipolar, schizophrenia, depression - Social History Alcohol Use: None Hx Substance Use: No Substance Use Type: Reports: None Hx Tobacco Use: Yes Smoking Status (MU): Former Smoker Amount Used/How Often: 4-5 CIGARETTES PER DAY X UNKNOWN AMOUNT OF YEARS Have You Smoked in the Last Year: No Review of Systems Negative: Fever Gastrointestinal: Other - POSITIVE: abdominal bloating Positive: Diarrhea, Nausea Genitourinary: Other - POSITIVE: foul smelling urine Positive: frequency. Negative: dysuria, discharge, pain, other - NEGATIVE: vaginal bleeding Neurological/Mental Status: Other - POSITIVE: dizziness All Other Systems Reviewed And Are Negative: Yes Physical Exam - Summary Physical Exam Summary: Constitutional: Well-developed, Well-nourished, Alert. (-) Distressed Skin: Warm, Dry HENT: Normocephalic; Atraumatic Eyes: Conjunctiva normal Neck: Musculoskeletal ROM normal neck. (-) JVD, (-) Stridor, (-) Tracheal deviation Cardio: Rhythm regular, rate normal, Heart sounds normal; Intact distal pulses; The pedal pulses are 2+ and symmetric. Radial pulses are 2+ and symmetric. (-) Murmur Pulmonary/Chest wall: Effort normal. (-) Respiratory distress, (-) Wheezes, (-) Rales Abd: Soft, mild epigastric abdominal tenderness, (-) Distension, (-) Guarding, ( -) Rebound Musculoskeletal: (-) Edema Lymph: (-) Cervical adenopathy Neuro: Alert, Oriented x3 Psych: Flat affect Triage Information Reviewed: Yes Vital Signs Reviewed: Yes Procedures - Sedation Patient Received Moderate/Deep Sedation with Procedure: No Diagnostics - Laboratory Result Diagrams: 06/07/19 17:08 06/07/19 17:08 Lab Statement: Any lab studies that have been ordered have been reviewed, and results considered in the medical decision making process. GIGU Course/Dx - Course Course Of Treatment: Patient is here with pain in her bladder, frequency, and bloating. Patient has been to this that she is off and on for 2 months. Patient is overall well-appearing with a benign abdominal exam. Patient had blood performed which is grossly unremarkable. Patient had a UA which did not show an obvious infection. However, given patient's symptoms, she will be treated for UTI. - Diagnoses Provider Diagnoses: Dysuria, Urinary frequency Discharge ED - Sign-Out/Discharge Documenting (check all that apply): Patient Departure - Discharge home - Discharge Plan Condition: Stable Disposition: HOME Patient Education Materials: Dysuria (ED), Urinary Urgency and Frequency (DC) Referrals: Fatou Coker NP [Primary Care Provider] - Additional Instructions: Please try a round of antibiotics for your symptoms Please follow up with your primary care doctor to make sure your symptoms get better Return if you have fever, severe abdominal pain, and other concerning symptoms - Billing Disposition and Condition Condition: STABLE Disposition: Home - Attestation Statements Document Initiated by Scribe: Yes Documenting Scribe: Onelia Gonzales Provider For Whom Scribe is Documenting (Include Credential): Jacob Sumner MD Scribe Attestation: Onelia Mckeon, scribed for Jacob Sumner MD on 06/09/19 at 1415. Scribe Documentation Reviewed: Yes Provider Attestation: The documentation as recorded by the Onelia mueller accurately reflects the service I personally performed and the decisions made by me, Jacob Sumner MD Status of Scribe Document: Viewed
[2019-06-07 17:28] LABS: Urine Appearance Clear; Urine Bilirubin Negative (Negative); Urine Blood Negative (Negative); Urine Color Yellow; Urine Glucose Negative (Negative); Urine Ketones Negative (Negative); Urine Nitrite Negative (Negative); Urine Protein Negative (Negative); Urine Specific Gravity 1.005 (1.010-1.030); Urine Urobilinogen Negative (Negative)
[2019-06-07 17:32] LABS: Albumin 4.2 g/dL (3.2-5.2); BUN/Creatinine Ratio 11.4 (8-20); Calcium 9.7 mg/dL (8.6-10.3); EGFR African American 78.3 (>60); EGFR Non-African American 64.7 (>60); Globulin 4.1 g/dL (2-4); Potassium 3.8 mmol/L (3.5-5.0); Total Bilirubin 0.3 mg/dL (0.2-1.0); Total Protein 8.3 g/dL (6.4-8.9)
[2019-06-07 17:34] LABS: ABS Eosinophils 0.2 10^3/ul (0-0.6); ABS Lymphocytes 2.1 10^3/ul (1.0-4.8); ABS Monocytes 0.3 10^3/ul (0-0.8); ABS Neutrophils 3.8 10^3/ul (1.5-7.7); Eosinophil % 2.8 %; Hematocrit 38 % (35-47); Hemoglobin 12.3 g/dL (12.0-16.0); Lymphocyte % 32.6 %; Mean Corpuscular HGB Conc 33 g/dL (31-36); Mean Corpuscular Hemoglobin 23 pg (27-31); Mean Corpuscular Volume 70 fL (80-97); Mean Platelet Volume 9.7 fL (7.4-10.4); Nucleated Red Blood Cells % 0.1; Platelet Count 253 10^3/uL (150-450); Red Blood Count 5.39 10^6 /uL (3.70-4.87); Red Cell Distribution Width 16 % (10-15); White Blood Count 6.5 10^3/uL (3.5-10.8)
--- OUTSIDE RECORDS SUMMARY | 2019-06-07 17:51 | XMS REPORT | Continuity of Care Document ---
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 Onset: 01/16/2011 Anemia Zeny Villegas M.D. Onset: 01/16/2011 Anxiety state Zeny Villegas M.D. Onset: 01/16/2011 Social History Type Date Description Comments Sex Unknown Tobacco Use Start: Unknown End: Former Cigarette Smoker Unknown Smoking Status Reviewed: 04/28/19 Former Cigarette Smoker ETOH Use Has consumed alcohol in the past Recreational Drug Use Denies Drug Use Tobacco Use Start: Unknown End: Patient is a former Unknown smoker Exercise Type/Frequency Exercises sporadically works her arms and legs, walks a lot Allergies, Adverse Reactions, Alerts Description No Known Drug Allergies Medications Active Medications SIG Qnty Indications Ordering Date Provider Peg 3350 17 gm every day 238gm R10.84 Buffy 04/28/2019 Powder mixed w/ 8oz water Kat every other evening Román WEAPONS SPECIALIST until formed stool. then as needed for constipation. Ibgard take one capsule 30 32caps Buffy 04/08/2019 90mg Capsules mins before or Kat ER after food with ALEX [place] water Clotrimazole apply 1 gram to 28gm Fatou John Paul, 03/30/2019 Anti-Fungal affected areas N.P. 1% Cream twice a day until clear Triamcinolone Apply To Dry Skin 60units Fatou Justin, 03/25/2019 Acetonide Once Or Twice Daily N.P. 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 Cream every day as needed for pruritis. Hydrocerin apply topically 113gm Fatou Varn, 03/23/2019 Cream four times daily N.P. for dry skin Aspercreme apply twice daily 6units Fatou Varn, 03/23/2019 W/Lidocaine to the painful N.P. 4% Cream joints as needed Aspercreme Lidocaine apply 2gm to sore 1units Fatou Varn, 03/23/2019 joints every 4 N.P. 4% Liquid hours as needed to joint and muscle pain Famotidine 1 by mouth twice a 60tabs Fatou Varn, 03/23/2019 20mg day N.P. Tablets Imodium A-D one after each 30tabs Fatou Varn, 03/21/2019 2mg loose stool N.P. Tablets Klonopin 1 by mouth qd Fatou Justin, 03/21/2019 0.5mg N.P. Tablets Latuda take 1 tablet by Fatou Varn, 03/21/2019 40mg Tablets mouth at bedtime N.P. with a snack for schizophrenia Atorvastatin Calcium 1 by mouth every 90tabs Fatou Varn, 03/21/2019 day at bedtime N.P. 20mg Tablets Colace 1 by mouth twice a 180caps Fatou Varn, 03/21/2019 100mg Capsules day as needed N.P. constipation Lactulose 15 milliliters once 3600ml Fatou Varn, 03/21/2019 10GM/15ML a day to aid bowel N.P. Solution movement Celecoxib Take One Capsule By 60caps M85.9 Fatou Varn, 03/21/2019 100mg Mouth Twice A Day N.P. Capsules Protonix 1 by mouth every 30tabs Fatou Varn, 03/21/2019 40mg Tablets day N.P. Gabapentin take 1 capsule by 90caps Fatou Varn, 03/21/2019 300mg mouth daily at N.P. Capsules bedtime for chronic pain/menopausal Mirtazapine one by mouth at 30tabs Fatou Varn, 03/21/2019 15mg bedtime N.P. Tablets Simethicone one by mouth every 120caps Fatou Varn, 03/21/2019 125mg 6hours N.P. Capsules Hydroxyzine HCL Take 1 Tablet By 60tabs Fatou Varn, 01/28/2019 25mg Mouth Every Night N.P. Tablets May Repeat After 30 Minutes Tylenol take 2 tabs po q4 60tabs Fatou Varn, 11/25/2018 325mg Tablets as needed, prn N.P. Oxybutynin Chloride 1 by mouth every 30tabs R32 Fatou Varn, 11/11/2018 ER day N.P. 5mg Tablets ER 24HR Cerovite Senior take one tablet by 30tabs Fatou Coker, 10/30/2018 mouth every day N.P. Tablets SM Anti-Diarrheal Take One Tablet By 30tabs Fatou Varn, 05/11/2018 2mg Mouth After Each N.P. Tablets Loose Stool Maximum Daily Dose = Eight Tablets Depend Underwear For 1 pair twice daily 60units N39.46 Fatou Varn, Wom Men Large as needed N.P. Maximum Absorbency incontinence. Misc Cetirizine HCL 1 by mouth at 30tabs Fatou Coker, 09/05/2015 10mg bedtime as needed N.P. Tablets allergies, prn Pramoxine HCL [facility] d/c summary Unknown 1% Foam 01/06/15- Pramoxine HCl vaginal wipes 1%- apply to affected area 3-4 times a day for vaginal itching. Gabapentin take 1 capsule by 60caps Biju Alejo NP 100mg mouth every in the Capsules morning 1 by mouth at noon History Medications Clotrimazole/Betamethasone use two to 15gm [place] 03/23/2019 - Dipropionate three times a Varn, N.P. 03/30/2019 1-0.05% Cream day as needed to vulva itching Estring 2mg put in 1units R32 Fatou 03/21/2019 - Ring vaginally x 3 Varn, N.P. 03/24/2019 months Ranitidine HCL take one 60tabs [place] 03/21/2019 - 150mg Tablets tablet by Varn, N.P. 03/23/2019 mouth twice a day Miralax 17 gm every 36units R10.8 Fatou 03/21/2019 - 3350NF Packet day mixed w/ 4 Varn, N.P. 04/28/2019 8oz water/juice as needed Mirtazapine one by mouth 30tabs [place] 03/18/2019 - 15mg Tablets at bedtime Varn, N.P. 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 03/20/2019 at bedtime for chronic pain/menopausa l Hydroxyzine HCL take 1 tablet 90tabs [place] 11/25/2018 - 25mg Tablets by mouth after Varn, N.P. 01/17/2019 nightly dose as needed (30min after hs dose) for anxiety Gas Relief Extra Strength Take One 120caps Fatou 11/05/2018 - 125mg Capsules Capsule By Varn, N.P. 03/21/2019 Mouth Four Times A Day as Needed Immunizations CPT Code Status Date Vaccine Lot # [id number] Given 12/09/2016 Influenza Virus Vaccine, Quadrivalent, Split, Preservative Free [id number] Given 07/08/2013 Tdap - Tetanus/Diptheria/Acellular Pertussis [id number] Given 01/26/2012 Fluvirin Im 3Yrs And Older 69860 Given 01/16/2011 Influenza Virus 3Yrs & Over [id number] Given 04/10/2009 Influenza Virus Vaccine, Pandemic Formulation [id number] Given 04/10/2009 Administration Swine Flu Shot Vital Signs Date Vital Result Comment 04/28/2019 11:46am Height 65.25 inches 5'5.25" Weight 147.12 lb Heart Rate 77 /min BP Systolic 135 mmHg BP Diastolic 87 mmHg O2 % BldC Oximetry 100 % BMI (Body Mass Index) 24.3 kg/m2 04/19/2019 10:37am Height 65.25 inches 5'5.25" Weight 145.00 lb Heart Rate 78 /min BP Systolic 125 mmHg BP Diastolic 78 mmHg O2 % BldC Oximetry 99 % BMI (Body Mass Index) 23.9 kg/m2 Results Test Acquired Date Facility Test Result H/L Range Note Laboratory test 04/26/2019 [facility] Hemoglobin A1c 5.9 % High 4.0-5.6 1, [address] (Glyco HGB) [place] [address] [phone] Surgical 02/22/2019 [facility] Surgical SEE RESULT [address] [place] [address] [phone] PDFReport SEE IMAGE Stool Occult 02/22/2019 [facility] Stool Occult SEE RESULT 4 Blood Diag [address] Blood, [place] [address] [phone] Laboratory test 02/22/2019 [facility] Clotest SEE RESULT [address] [place] [address] [phone] Lipid Profile 02/22/2019 [facility] Triglycerides 96 mg/dL 6, 7 (Trig/Chol/HDL) [address] [place] [address] [phone] Cholesterol 169 mg/dL 8 HDL Cholesterol 71.3 mg/dL 9 LDL Cholesterol 79 mg/dL 10 Liver Function 02/22/2019 [facility] Total Protein 7.4 g/dL Normal 6.4-8.[address] [place] [address] [phone] Albumin 4.2 g/dL Normal 3.2-5.2 Globulin 3.2 g/dL Normal 2-4 Albumin/Globulin Ratio 1.3 Normal 1-3 Total Bilirubin 0.40 mg/dL Normal 0.2-1.0 Direct Bilirubin 0.10 mg/dL Normal 0.03-0.18 Indirect Bilirubin 0.3 mg/dL Normal 0.3-1.0 Alkaline Phosphatase 118 U/L High 34-104 Alt 17 U/L Normal 7-52 Ast 17 U/L Normal 13-39 CBC Auto 02/08/2019 [facility] White Blood 6.8 10^3/uL Normal 3.5-10.8 [address] Count [place], [place] [id number] [phone] Red Blood Count 5.32 10^6/uL High 3.70-4.87 Hemoglobin 11.8 g/dL Low 12.0-16.0 Hematocrit 37 % Normal 35-47 Mean Corpuscular Volume 70 fL Low 80-97 Mean Corpuscular Hemoglobin 22 pg Low 27-31 Mean Corpuscular HGB Conc 32 g/dL Normal 31-36 Red Cell Distribution Width 16 % High 10-15 Platelet Count 274 10^3/uL Normal 150-450 Mean Platelet Volume 9.9 fL Normal 7.4-10.4 Abs Neutrophils 2.7 10^3/uL Normal 1.5-7.7 Abs Lymphocytes 3.2 10^3/uL Normal 1.0-4.8 Abs Monocytes 0.5 10^3/uL Normal 0-0.8 Abs Eosinophils 0.4 10^3/uL Normal 0-0.6 Abs Basophils 0.1 10^3/uL Normal 0-0.2 Abs Nucleated RBC 0.0 10^3/uL Granulocyte % 39.8 % Lymphocyte % 46.5 % Monocyte % 7.4 % Eosinophil % 5.5 % Basophil % 0.8 % Nucleated Red Blood Cells % 0.1 Iron & Iron Binding 02/08/2019 [facility] Iron 73 g/dL Normal 50-[address] [place] [address] [phone] Unsaturated Iron Binding < 292 g/dL Total Iron Binding Capacity 307 g/dL Normal 250-450 Transferrin 219 mg/dL Normal 203-362 % Iron Saturation 24 % Normal 15-55 Laboratory test 02/08/2019 [facility] Ferritin 17.9 ng/mL Normal 11-307 [address] [place], [place] [id number] [phone] Vitamin B12 1039 pg/mL High 180-914 13 Urine Culture And 01/20/2019 [facility] Urine Culture SEE RESULT [address] [place] [address] [phone] Urinalysis Profile 01/20/2019 [facility] Urine Color St[place] [address] [place] [address] [phone] Urine Appearance Clear Urine Specific Martinez 1.002 Low 1.010-1.030 Urine pH 6.0 Normal 5-9 Urine Urobilinogen Negative Negative Urine Ketones Negative Negative Urine Protein Negative Negative Urine Leukocytes 1+ Abnormal Negative Urine Blood Negative Negative Urine Nitrite Negative Negative Urine Bilirubin Negative Negative Urine Glucose Negative Negative Urine White Blood Cell Trace(0-5/hpf) Absent Urine Red Blood Cell 1+(3-5/hpf) Abnormal Absent Urine Bacteria 1+ Abnormal Absent Urine Squamous Epithelial Cell Present Abnormal Absent Urine Calcium Oxalate Cryst Present Abnormal Absent Laboratory test 01/20/2019 [facility] Lipase 30 U/L Normal 11.0-82.0 finding [address] [place] [address] [phone] C Reactive Protein 4.41 mg/L Normal <8.01 Troponin-I (TnI) 0.00 ng/mL <0.04 15 TSH (Thyroid Stim Horm) 1.29 mcIU/mL Normal 0.34-5.60 Comp Metabolic 01/20/2019 [facility] Sodium 140 mmol/L Normal 135-145 Panel [address] [place] [address] [phone] Potassium 3.9 mmol/L Normal 3.5-5.0 Chloride 108 mmol/L Normal 101-111 Co2 Carbon Dioxide 28 mmol/L Normal 22-32 Anion Gap 4 mmol/L Normal 2-11 Glucose 109 mg/dL High 70-100 Blood Urea Nitrogen 13 mg/dL Normal 6-24 Creatinine 0.72 mg/dL Normal 0.51-0.95 BUN/Creatinine Ratio 18.1 Normal 8-20 Calcium 8.8 mg/dL Normal 8.6-10.3 Total Protein 7.1 g/dL Normal 6.4-8.9 Albumin 3.9 g/dL Normal 3.2-5.2 Globulin 3.2 g/dL Normal 2-4 Albumin/Globulin Ratio 1.2 Normal 1-3 Total Bilirubin 0.20 mg/dL Normal 0.2-1.0 Alkaline Phosphatase 93 U/L Normal 34-104 Alt 15 U/L Normal 7-52 Ast 17 U/L Normal 13-39 Egfr Non- 81.6 >60 Egfr 98.7 >60 16 CBC Auto 01/20/2019 [facility] White Blood 6.3 10^3/uL Normal 3.5-10.[address] [place] [address] [phone] Red Blood Count 5.00 10^6/uL High 3.70-4.87 Hemoglobin 11.0 g/dL Low 12.0-16.0 Hematocrit 35 % Normal 35-47 Mean Corpuscular Volume 70 fL Low 80-97 17 Mean Corpuscular Hemoglobin 22 pg Low 27-31 Mean Corpuscular HGB Conc 31 g/dL Normal 31-36 Red Cell Distribution Width 16 % High 10-15 Platelet Count 263 10^3/uL Normal 150-450 Mean Platelet Volume 8.4 fL Normal 7.4-10.4 Abs Neutrophils 3.6 10^3/uL Normal 1.5-7.7 Abs Lymphocytes 1.9 10^3/uL Normal 1.0-4.8 Abs Monocytes 0.4 10^3/uL Normal 0-0.8 Abs Eosinophils 0.4 10^3/uL Normal 0-0.6 Abs Basophils 0.1 10^3/uL Normal 0-0.2 Abs Nucleated RBC 0.0 10^3/uL Granulocyte % 56.8 % Lymphocyte % 29.8 % Monocyte % 5.9 % Eosinophil % 6.4 % Basophil % 1.1 % Nucleated Red Blood Cells % 0.1 Laboratory 01/09/2019 [facility] D Dimer < 200 Normal Less 18 test finding [address] Quantitative ng/[place] [phone] Lipid Profile 01/09/2019 [facility] Triglycerides 86 mg/dL 19 (Trig/Chol/HDL [address] ) [place] [address] [phone] Cholesterol 208 mg/dL 20 HDL Cholesterol 71.9 mg/dL 21 LDL Cholesterol 119 mg/dL 22 Laboratory test 01/09/2019 [facility] Hemoglobin A1c 5.7 % High 4.0-5.6 [address] (Glyco HGB) [place] [address] [phone] Inr/Protime 01/09/2019 [facility] Inr 1.01 Normal 0.82-1.[address] [place] [address] [phone] CBC Auto Diff 01/09/2019 [facility] White Blood 4.8 Normal 3.5 -10.[address] Count 10^3/[place] [address] [phone] Red Blood Count 5.00 10^6/uL High 3.70-4.87 Hemoglobin 11.0 g/dL Low 12.0-16.0 Hematocrit 35 % Normal 35-47 Mean Corpuscular Volume 70 fL Low 80-97 25 Mean Corpuscular Hemoglobin 22 pg Low 27-31 [...] Red Blood Cells % 0.0 Laboratory test 01/09/2019 [facility] Troponin-I 0.00 <0.[address] (TnI) ng/mL [place], [place] [address] [phone] Comp Metabolic 01/09/2019 [facility] Sodium 140 Normal 135- [address] mmol/[place] [address] [phone] Potassium 3.7 mmol/L Normal 3.5-5.0 Chloride 106 [...] Egfr Non- 70.2 >60 Egfr 84.9 >60 27 Laboratory 01/09/2019 [facility] Troponin-I (TnI) 0.01 <0.04 28 test finding [address] ng/[place] [address] [phone] Laboratory 01/09/2019 [facility] Troponin-I (TnI) 0.01 <0.04 29 test finding [address] ng/[place] [address] [phone] Laboratory 11/21/2018 [facility] D Dimer < 200 Normal Less 30 test finding [address] Quantitative ng/mL Than [address] [place] [address] [phone] Laboratory 11/21/2018 [facility] Troponin-I (TnI) 0.01 <0.04 31 test finding [address] ng/[place] [address] [phone] CBC Auto Diff 11/21/2018 [facility] White Blood 6.6 Normal 3.5 -10.[address] Count 10^3/[place] [address] [phone] Red Blood Count 5.10 10^6/uL High 3.70-4.87 [...] Blood Cells % 0.0 Comp Metabolic 11/21/2018 [facility] Sodium 141 mmol/L Normal 135-[address] [place] [address] [phone] Potassium 3.5 mmol/L Normal 3.5-5.0 Chloride 108 [...] Egfr Non- 64.7 >60 Egfr 78.3 >60 32 Laboratory test 11/21/2018 [facility] Troponin-I (TnI) 0.00 ng/ mL <0.04 [address] [place] [address] [phone] Lipase 16 U/L Normal 11.0-82.0 CBC Auto 11/20/2018 [facility] White Blood 5.1 10^3/uL Normal 3.5-10.[address] [place] [address] [phone] Red Blood Count 4.96 10^6/uL High 3.70-4.87 Hemoglobin 11.0 g/dL Low 12.0-16.0 Hematocrit 35 % Normal 35-47 Mean Corpuscular Volume 70 fL Low 80-97 34 Mean Corpuscular Hemoglobin 22 pg Low 27-31 [...] Blood Cells % 0.1 Comp Metabolic 11/20/2018 [facility] Sodium 140 mmol/L Normal 135-[address] [place] [address] [phone] Potassium 3.7 mmol/L Normal 3.5-5.0 Chloride 109 [...] Egfr Non- 64.7 >60 Egfr 78.3 >60 35 Laboratory test 11/20/2018 [facility] Troponin-I (TnI) 0.01 < 0.04 [address] ng/[place] [address] [phone] Lipid Profile 11/16/2018 [facility] Triglycerides 113 mg/dL 37, 38 (Trig/Chol/HDL) [address] [place] [address] [phone] Cholesterol 236 mg/dL 39 HDL Cholesterol 84.9 mg/dL 40 LDL Cholesterol 129 mg/dL 41 Hepatitis C Antibody 11/16/2018 [facility] HCV Index 0.06 s/c [address] [place] [address] [phone] Hepatitis C Antibody Negative Negative 1 [id number] 2 Therapeutic target for the treatment of diabetes mellitus patients is <7% HBA1C, and in selective patients <6.0%. Please refer to [place] [employer] diabetic care guidelines for further information. 3 SEE RESULT BELOW Name: RENEE LINDSAY E : [address]: Jose Abarca MD Acct: [id number] Unit: [id number] AGE: 63 Location: [facility] Re02/22/19 SEX: F Status: DEP REF SPEC: [id number] LADI: 02/22/19- SUBM DR: Jose Abarca MD REQ: [id number] RECD: 02/22/19 STATUS: ABIGAIL GOMEZ DR: Lorraine Vargas MD _ ORDERED: LEVEL 4 FINAL DIAGNOSIS Small bowel, third portion of duodenum, biopsy: -- Small bowel mucosa with normal villous architecture and no significant pathologic abnormality. -- No villous blunting or increased lamina propria lymphoplasmacytic infiltrate identified. CLINICAL HISTORY Bloated gas; diet - no fried foods; appetite - no emesis POST-OPERATIVE DIAGNOSIS EGD: larynx - not seen; esophagus - normal esophagogastric 33 cm; stomach - normal; BORA test; biopsy; duodenum - normal x 35 cm biopsy (2); conclusions: normal EGD; bloating - follow up GROSS DESCRIPTION The specimen is received in formalin labeled, Biopsy Third Portion Duodenum, and consists of a 0.8 by up to 0.5 x 0.1 cm aggregate of jimenez-pink irregular soft tissue fragments which is submitted entirely in one cassette. Signed by and Reported on: Rob Kim MD 02/01 1535 END OF REPORT DEPARTMENT OF PATHOLOGY, [address] [place] [address] Rob Kim M.D. Director [facility] # [id number] 4 SEE RESULT BELOW Name: RENEE LINDSAY : [address]: Jose Abarca MD Acct: [id number] Unit: [id number] AGE: 63 Location: ENDO Re02/22/19 SEX: F Status: REG REF SPEC: [id number] LADI: 02/22/[address]: Jose Abarca MD REQ: [id number] RECD: 02/22/19 STATUS: SADIA GOMEZ DR: Fatou Coker WEAPONS SPECIALIST _ SOURCE: STOOL SPDESC: ORDERED: Occult Bl, Diag Procedure Result Reported Site Stool Occult Blood (1) Final 02/22/19- 1405 ML Stool Occult Blood Negative Collection Date (1) 02/22/19 * ML - Main Lab . END OF REPORT DEPARTMENT OF PATHOLOGY, [address] [place] [address] Rob Kim M.D. Director [facility] # [id number] 5 SEE RESULT BELOW Name: RENEE LINDSAY : [address]: Jose Abarca MD Acct: [id number] Unit: [id number] AGE: 63 Location: ENDO Re02/22/19 SEX: F Status: REG REF SPEC: [id number] LADI: 02/22/19-[address] [facility] [address]: Jose Abarca MD REQ: [id number] RECD: 02/22/19135 STATUS: SADIA GOMEZ DR: Fatou Coker WEAPONS SPECIALIST _ SOURCE: GAS ANTRUM SPDESC: ORDERED: Clotest Procedure Result Reported Site Clotest Final 02/23/19- 0754 ML Clotest Negative * ML - Main Lab . END OF REPORT DEPARTMENT OF PATHOLOGY, [address] [place] [address] Rob Kim M.D. Director [facility] # [id number] 6 [id number] Desirable: <150 Borderline High: 150-199 High: 200-499 Very High: >500 8 Desirable: <200 Borderline High: 200-239 High: >239 9 Low: <40 Desirable: 40-60 High: >60 10 Desirable: <100 Near Optimal: 100-129 Borderline High: 130-159 High: 160-189 Very High: >189 11 [id number] Normal Range 180 to 914 Indeterminate Range 145 to 180 Deficient Range <145 14 SEE RESULT BELOW Name: RENEE LINDSAY : [address]: Chalino Nazario MD Acct: [id number] Unit: [id number] AGE: 63 Location: ED Re01/20/19 SEX: F Status: DEP ER SPEC: [id number] LADI: 01/20/[address]: Beto MONK REQ: [id number] RECD: 01/20/19 STATUS:SADIA GOMEZ DR: Fatou Nazario MD _ SOURCE: URINE SPDESC: ORDERED: Urine Culture Procedure Result Reported Site Urine Culture Final 01/22/19- 0936 ML Mixed christiano; possible contamination. Suggest resubmission. * ML - Main Lab . END OF REPORT DEPARTMENT OF PATHOLOGY, [address] [place] [address] Rob Kim M.D. Director [facility] # [id number] 15 Troponin-I testing on Plasma Separator Tubes (PST) has a known false positive rate of 0.20-0.40%. All positive troponins reflex immediately to secondary confirmatory testing. Using the [employer] Interactive 800 Access Immunoassay systems, the 99th percentile [...] 17 Consistent with Previous Results Reported on 01/10/2019. 18 Please note: The following may produce a false positive D Dimer test: - Rheumatoid factor greater than 60 IU/ml - Plasma hemoglobin greater than 0.05 gm/dl - Bilirubin greater than 50 mg/dl - Lipids greater than 1000 mg/dl - FDP greater than 20 ug/ml 19 Desirable: <150 Borderline High: 150-199 High: 200-499 Very High: >500 20 Desirable: <200 Borderline High: 200-239 High: >239 21 Low: <40 Desirable: 40-60 High: >60 22 Desirable: <100 Near Optimal: 100-129 Borderline High: 130-159 High: 160-189 Very High: >189 23 Therapeutic target for the treatment of diabetes mellitus patients is <7% HBA1C, and in selective patients <6.0%. Please refer to [place] [employer] diabetic care guidelines for further information. 24 Standard intensity warfarin therapeutic range: 2.0-3.0 High intensity warfarin therapeutic range: 2.5-3.5 25 Consistent with Previous Results Reported on 11/21/18 26 Troponin-I testing on Plasma Separator Tubes (PST) has a known false positive rate of 0.20-0.40%. All positive troponins reflex immediately to secondary confirmatory testing. Using the [employer] DxI 800 Access Immunoassay systems, the 99th percentile upper reference limit was demonstrated to be < 0.03 ng/mL. 27 Because ethnic data is not always readily [...] 15-29 5 Kidney failure <15 (or dialysis) 28 Troponin-I testing on Plasma Separator Tubes (PST) has a known false positive rate of 0.20-0.40%. All positive troponins reflex immediately to secondary confirmatory testing. Using the [employer] DxI 800 Access Immunoassay systems, the 99th percentile upper reference limit was demonstrated to be < 0.03 ng/mL. 29 Troponin-I testing on Plasma Separator Tubes (PST) has a known false positive rate of 0.20-0.40%. All positive troponins reflex immediately to secondary confirmatory testing. Using the [employer] DxI 800 Access Immunoassay systems, the 99th percentile upper reference limit was demonstrated to be < 0.03 ng/mL. 30 Please note: The following may produce a false positive D Dimer test: - Rheumatoid factor greater than 60 IU/ml - Plasma hemoglobin greater than 0.05 gm/dl - Bilirubin greater than 50 mg/dl - Lipids greater than 1000 mg/dl - FDP greater than 20 ug/ml 31 Troponin-I testing on Plasma Separator Tubes (PST) has a known false positive rate of 0.20-0.40%. All positive troponins reflex immediately to secondary confirmatory testing. Using the [employer] DxI 800 Access Immunoassay systems, the 99th percentile upper reference limit was demonstrated to be < 0.03 ng/mL. 32 Because ethnic data is not always [...] immediately to secondary confirmatory testing. Using the [employer] DxI 800 Access Immunoassay systems, the 99th percentile upper reference limit was demonstrated to be < 0.03 ng/mL. 34 Consistent with Previous Results Reported on 08/17/18 35 Because ethnic data is not always readily [...] 15-29 5 Kidney failure <15 (or dialysis) 36 Troponin-I testing on Plasma Separator Tubes (PST) has a known false positive rate of 0.20-0.40%. All positive troponins reflex immediately to secondary confirmatory testing. Using the [employer] DxI 800 Access Immunoassay systems, the 99th percentile upper reference limit was demonstrated to be < 0.03 ng/mL. 37 [id number] Desirable: <150 Borderline High: 150-199 High: 200-499 Very High: >500 39 Desirable: <200 Borderline High: 200-239 High: >239 40 Low: <40 Desirable: 40-60 High: >60 41 Desirable: <100 Near Optimal: 100-129 Borderline High: 130-159 High: 160-189 Very High: >189 Procedures Date Code Description Status 04/05/2019 88306 Pessary Fitting & Insertion Completed 03/24/2019 80100 Pessary Fitting & Insertion Completed 03/17/2019 [id number] Mammogram Completed 02/22/2019 88769 Endoscopy Upper GI Biopsy Completed 01/10/2019 33025 ECHO Transthorasic Realtime 2D W Doppler & Color Flow Completed Hosp 01/10/2019 66123 Treadmill Interp/Report Only Completed 01/10/2019 08914 Stress Test Supervsn W/Out I/R Completed 01/09/2019 84529 EKG, Interpretation Only Completed 11/23/2018 30596 Stress Test Completed 07/28/2016 [id number] Mammogram Completed 09/20/2015 [id number] Colonoscopy Completed 07/26/2015 [id number] Mammogram Completed 02/25/2011 [id number] Bone Mineral Density Test Completed 02/25/2011 [id number] Mammogram Completed 11/28/2008 [id number] Mammogram Completed 06/22/2007 [id number] Mammogram Completed Medical Devices Description No Information Available Encounters Type Date Location Provider Dx Diagnosis Office Visit 04/05/2019 [facility] Caryn Antunez, R32 Unspecified urinary 10:30a [facility] [employer]-Cde incontinence N81.2 Incomplete uterovaginal prolapse Office [facility] [employer] SU[employer]-Cde incontinence N95.2 Postmenopausal atrophic vaginitis N81.10 Cystocele, unspecified Office 03/21/2019 [facility] Internal Fatou E78.00 Pure hypercholesterolemia, Visit 10:40a Medicine - Varn, N.P. unspecified Ccmob R14.0 Abdominal distension (gaseous) R32 Unspecified urinary incontinence Office Visit 02/23/2019 11:00a [facility] Internal Fatou Coker, R32 Unspecified urinary Medicine - Ccmob N.P. incontinence R10.84 Generalized abdominal pain Office Visit 02/01/2019 [facility] Gastroenterology Buffy D64.9 Anemia, 3:00p Kat France NP K21.9 Gastro-esophageal reflux disease without esophagitis R14.0 Abdominal distension (gaseous) Office Visit 01/17/2019 1:40p [facility] Internal Fatou Coker, R07.89 Other chest Medicine - [facility]cmob N.P. pain R14.0 Abdominal distension (gaseous) E78.00 Pure hypercholesterolemia, unspecified Office Visit 01/10/2019 [facility] Riya R07.9 Chest pain, 9:39a Assoc,blanca Winter NP unspecified Hospitalists E78.5 Hyperlipidemia, unspecified D64.9 Anemia, unspecified K21.9 Gastro-esophageal reflux disease without esophagitis M13.80 Other specified arthritis, unspecified site F41.9 Anxiety disorder, unspecified G89.29 Other chronic pain [facility], 9:31a Assoc,pc Moussallem, M.D. unspecified Hospitalists E78.5 Hyperlipidemia, unspecified M15.0 Primary generalized (osteo)arthritis K21.9 Gastro-esophageal reflux disease without esophagitis Office Visit 12/22/2018 10:00a [facility] Caryn Antunez, N39.46 Mixed incontinence 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 [employer] SUPER[employer]OR-Cde N95.2 Postmenopausal atrophic vaginitis Office Visit 11/25/2018 10:40a [facility] Internal Kitty Satinder, R07.89 Other chest [facility] 11/11/2018 2:00p [facility] Caryn R32 Unspecified urinary [facility] Tulio, incontinence [facility] N95.2 Postmenopausal atrophic vaginitis Office Visit 11/09/2018 9:00a [facility] Internal Deena Santoyo MD Z00.00 [facility] exam w/o abnormal findings R32 Unspecified urinary incontinence K59.00 Constipation, unspecified Assessments Date Code Description Provider 04/28/2019 R32 Unspecified urinary incontinence Caryn Antunez, [facility] 04/19/2019 R32 Unspecified urinary incontinence Caryn Antunez, [facility] 04/19/2019 R63.4 Abnormal weight loss Caryn Mayeskristina [facility] 04/05/2019 R32 Unspecified urinary incontinence Caryn Antunez, [facility] 04/05/2019 N81.2 Incomplete uterovaginal prolapse Caryn Mayeskins, [facility] 04/04/2019 K63.89 Other specified diseases of intestine Buffy France NP 04/04/2019 R71.8 Other abnormality of red blood cells Buffy France NP 04/04/2019 R14.0 Abdominal distension (gaseous) Buffy France NP 03/24/2019 R32 Unspecified urinary incontinence Caryn Tulio, [facility] 03/24/2019 N95.2 Postmenopausal atrophic vaginitis Caryn Tulio, [facility] 03/24/2019 N81.10 Cystocele, unspecified Caryn Antunez, [employer]-Cde 03/21/2019 E78.00 Pure hypercholesterolemia, unspecified Fatou Varn, N.P. 03/21/2019 R14.0 Abdominal distension (gaseous) Fatou Varn, N.P. 03/21/2019 R32 Unspecified urinary incontinence Fatou Varn, N.P. 02/23/2019 R32 Unspecified urinary incontinence Fatou Varn, N.P. 02/23/2019 R10.84 Generalized abdominal pain Fatou Varn, N.P. 02/22/2019 K21.9 Gastro-esophageal reflux disease Jose Abarca MD without esophagitis 02/22/2019 R14.0 Abdominal distension (gaseous) Jose Abarca MD 02/01/2019 D64.9 Anemia, unspecified Buffy France, [employer] 02/01/2019 K21.9 Gastro-esophageal reflux disease Buffy France NP without esophagitis 02/01/2019 R14.0 Abdominal distension (gaseous) Buffy France, [employer] 01/17/2019 R07.89 Other chest pain Fatou Andersonn, N.P. 01/17/2019 R14.0 Abdominal distension (gaseous) Fatou Andersonn, N.P. 01/17/2019 E78.00 Pure hypercholesterolemia, unspecified Fatou Varn, N.P. 01/10/2019 R07.9 Chest pain, unspecified Riya Moy, [employer] 01/10/2019 R07.9 Chest pain, unspecified John Paul Gardner MD, FACC, [facility] 01/10/2019 E78.5 Hyperlipidemia, unspecified Riya Moy, [employer] 01/10/2019 R94.31 Abnormal electrocardiogram [ECG] [EKG] John Paul Gardner MD, FACC, [facility] 01/10/2019 D64.9 Anemia, unspecified Riya Moy, [employer] 01/10/2019 R07.9 Chest pain, unspecified Ken Sarabia M.D. 01/10/2019 K21.9 Gastro-esophageal reflux disease Riya Solsberry, [employer] without esophagitis 01/10/2019 M13.80 Other specified arthritis, unspecified Riya Moy, [employer] site 01/10/2019 F41.9 Anxiety disorder, unspecified Riya Winter, [employer] 01/10/2019 G89.29 Other chronic pain Riya Winter, [employer] 01/09/2019 R07.9 Chest pain, unspecified Billy Velasquez, DO FAC 01/09/2019 R07.9 Chest pain, unspecified Frankie Waldrop M.D. 01/09/2019 E78.5 Hyperlipidemia, unspecified Frankie Waldrop M.D. 01/09/2019 M15.0 Primary generalized (osteo)arthritis Frankie Waldrop M.D. 01/09/2019 K21.9 Gastro-esophageal reflux disease Frankie Waldrop M.D. without esophagitis 12/22/2018 N39.46 Mixed incontinence Caryn Antunez, [employer]-Cde 12/22/2018 N95.2 Postmenopausal atrophic vaginitis Caryn Antunez, [employer]-Cde 12/13/2018 N39.46 Mixed incontinence Caryn Antunez, [employer]-Cde 12/13/2018 N95.2 Postmenopausal atrophic vaginitis Caryn Antunez, [employer]-Cde 11/25/2018 R07.89 Other chest pain Kitty Rajan MD 11/23/2018 R07.89 Other chest pain Brianda Vance M.D. 11/23/2018 R07.89 Other chest pain Fatou Coker, N.P. 11/11/2018 R32 Unspecified urinary incontinence Caryn Antunez, [employer]-Cde 11/11/2018 N95.2 Postmenopausal atrophic vaginitis Caryn Antunez, [employer] SU[employer]-Cde 11/09/2018 Z00.00 Encounter for general adult medical Deena Santoyo MD examination without abnormal findings 11/09/2018 R32 Unspecified urinary incontinence Deena Santoyo MD 11/09/2018 K59.00 Constipation, unspecified Deena Santoyo MD Plan of Treatment Future Appointment(s):07/19/2019 10:30 am - KRISTEL Kent-Cdmorro at [facility]07/04/2019 10:10 am - Buffy France NP at [facility] Sijgualywlxndsfo35/13/2020 1:40 pm - Fatou Coker N.P. at [facility] Internal Medicine - C[facility]04/28/2019 - KRISTEL Kent-CdeR32 Unspecified urinary incontinenceRecommendations:The pessary is not helping your urinary incontinence. You may have some spotting for a week - pleasecall if bleeding is heavier Functional Status Description No Information Available Mental Status Description No Information Available Referrals Refer to Dr Reason for Referral Status Appt Date Buffy France NP Patient with chest pain - had a full cardiac Sent 2018 evaluation that was negative. She has a lot of bloating, gas and issues with constipation and diarrhea. [facility] [address] [address] [phone] Abby Sotomayor MD Patient with cystocele causing urinary Sent 02/01/2019 incontinence, she is not interested or able to undergo pelvic floor PT. Already on oxybutynin [address] [place] [address] [phone]
--- OUTSIDE RECORDS SUMMARY | 2019-06-07 17:51 | XMS REPORT | Continuity of Care Document ---
:1955 External Reference #:[id number] Author Name KRISTEL Kent-Cde (transmitted by agent of provider Teresa Washington) Address [address] [facility], [place] [address] Care Team Providers Name Role Phone Lorraine Vargas MD - Internal Care Team Information Sheep Shearer [phone] Medicine Problems Active Problems Provider Date Female climacteric state Long Bass M.D.,FACP Onset: 03/21/2009 Urge incontinence of urine Long Bass M.D.,FACP Onset: 03/21/2009 Atrophic vaginitis Zeny Villegas M.D. Onset: 01/16/2011 Anemia Zeny Villegas M.D. Onset: 01/16/2011 Anxiety state Zeny Villegas M.D. Onset: 01/16/2011 Social History Type Date Description Comments Sex Unknown Tobacco Use Start: Unknown End: Former Cigarette Smoker Unknown Smoking Status Reviewed: 04/19/19 Former Cigarette Smoker ETOH Use Has consumed alcohol in the past Recreational Drug Use Denies Drug Use Tobacco Use Start: Unknown End: Patient is a former Unknown smoker Exercise Type/Frequency Exercises sporadically works her arms and legs, walks a lot Allergies, Adverse Reactions, Alerts Description No Known Drug Allergies Medications Active Medications SIG Qnty Indications Ordering Date Provider Ibgard take one capsule 30 32caps Buffy 04/08/2019 90mg Capsules mins before or Kat ER after food with [place], HORSESHOER water Clotrimazole apply 1 gram to 28gm Fatou Varn, 03/30/2019 Anti-Fungal affected areas N.P. 1% Cream twice a day until clear Triamcinolone apply to dry skin 120ml Fatou Varn, 03/25/2019 Acetonide once or twice daily N.P. 0.1% Lotion Estradiol use 1/2 gram 42.500gm R32 Caryn Antunez, 03/24/2019 0.1mg/GM nightly x 2 weeks GERONTOLOGY AIDE-Cde Cream then 1/2 gram 2x/week Hydrocortisone apply to itchy rash 28.350gm Fatou Varn, 03/23/2019 1% on genital area N.P. Cream every day as needed for pruritis. Hydrocerin apply topically 113gm Fatou Varn, 03/23/2019 Cream four times daily N.P. for dry skin Aspercreme apply twice daily 6units Fatou Coker, 03/23/2019 W/Lidocaine to the painful N.P. 4% Cream joints as needed Aspercreme Lidocaine apply 2gm to sore 1units Fatou Coker, 03/23/2019 joints every 4 N.P. 4% Liquid hours as needed to joint and muscle pain Famotidine 1 by mouth twice a 60tabs Fatou Coker, 03/23/2019 20mg day N.P. Tablets Imodium A-D one after each 30tabs Fatou Coker, 03/21/2019 2mg loose stool N.P. Tablets Miralax 17 gm every day 36units R10.84 Fatou Coker, 03/21/2019 3350NF Packet mixed w/ 8oz N.P. water/juice as needed Klonopin 1 by mouth qd Fatou Coker, 03/21/2019 0.5mg N.P. Tablets Latuda take 1 tablet by Fatou Coker, 03/21/2019 40mg Tablets mouth at bedtime N.P. with a snack for schizophrenia Atorvastatin Calcium 1 by mouth every 90tabs Fatou Coker, 03/21/2019 day at bedtime N.P. 20mg Tablets Colace 1 by mouth twice a 180caps Fatou Coker, 03/21/2019 100mg Capsules day as needed N.P. constipation Lactulose 15 milliliters once 3600ml Fatou Coker, 03/21/2019 10GM/15ML a day to aid bowel N.P. Solution movement Celecoxib Take One Capsule By 60caps M85.9 Fatou Coker, 03/21/2019 100mg Mouth Twice A Day N.P. Capsules Protonix 1 by mouth [facility], 03/21/2019 40mg Tablets day N.P. Gabapentin take 1 capsule by 90caps Fatou Varn, 03/21/2019 300mg mouth daily at N.P. Capsules bedtime for chronic pain/menopausal Mirtazapine one by mouth at 30tabs Fatou John Paul, 03/21/2019 15mg bedtime N.P. Tablets Simethicone one by mouth every 120caps Fatou Varn, 03/21/2019 125mg 6hours N.P. Capsules Hydroxyzine HCL Take 1 Tablet By 60tabs Fatou Varn, 01/28/2019 25mg Mouth Every Night N.P. Tablets May Repeat After 30 Minutes Tylenol take 2 tabs po q4 60tabs Fatou John Paul, 11/25/2018 325mg Tablets as needed, prn N.P. Oxybutynin Chloride 1 by mouth every 30tabs R32 Fatou John Paul, 11/11/2018 ER day N.P. 5mg Tablets ER 24HR Cerovite Senior take one tablet by 30tabs Fatou Varn, 10/30/2018 mouth every day N.P. Tablets SM Anti-Diarrheal Take One Tablet By 30tabs Fatou Varn, 05/11/2018 2mg Mouth After Each N.P. Tablets Loose Stool Maximum Daily Dose = Eight Tablets Depend Underwear For 1 pair twice daily 60units N39.46 Fatou John Paul, Wom Men Large as needed N.P. Maximum [...] History Medications Clotrimazole/Betamethasone use two to 15gm Fatou 03/23/2019 - Dipropionate three times a Varn, N.P. 03/30/2019 1-0.05% Cream day as needed to vulva itching Estring 2mg put in 1units R32 Fatou 03/21/2019 - Ring vaginally x 3 Varn, N.P. 03/24/2019 months Ranitidine HCL take one 60tabs [place] 03/21/2019 - 150mg Tablets tablet by Varn, N.P. 03/23/2019 mouth twice a day Mirtazapine one by mouth 30tabs [place] 03/18/2019 - 15mg Tablets at bedtime Varn, N.P. 03/20/2019 Estring 2mg put in 1units R32 Caryn 12/13/2018 - Ring vaginally x 3 Tulio, 03/20/2019 months GERONTOLOGY AIDE-Cde Gabapentin take 1 capsule 90caps [place] 11/25/2018 - 300mg Capsules by mouth daily Varn, N.P. 03/20/2019 at bedtime for chronic pain/menopausa l Hydroxyzine HCL take 1 tablet 90tabs [place] 11/25/2018 - 25mg Tablets by mouth after Varn, N.P. 01/17/2019 nightly dose as needed (30min after hs dose) for anxiety Gas Relief Extra Strength Take One 120caps [place] 11/05/2018 - 125mg Capsules Capsule By Varn, N.P. 03/21/2019 Mouth Four Times A Day as Needed Immunizations CPT Code Status Date Vaccine Lot # 60562 Given 12/09/2016 Influenza Virus Vaccine, Quadrivalent, Split, Preservative Free [id number] Given 07/08/2013 Tdap - Tetanus/Diptheria/Acellular Pertussis [id number] Given 01/26/2012 Fluvirin Im 3Yrs And Older 90516 Given 01/16/2011 Influenza Virus 3Yrs & Over [id number] Given 04/10/2009 Influenza Virus Vaccine, Pandemic Formulation [id number] Given 04/10/2009 Administration Swine Flu Shot Vital Signs Date Vital Result Comment 04/19/2019 10:37am Height 65.25 inches 5'5.25" Weight 145.00 lb Heart Rate 78 /min BP Systolic 125 mmHg BP Diastolic 78 mmHg O2 % BldC Oximetry 99 % BMI (Body Mass Index) 23.9 kg/m2 04/05/2019 10:10am Height 65.25 inches 5'5.25" Weight 152.12 lb Heart Rate 82 /min BP Systolic 107 mmHg BP Diastolic 74 mmHg O2 % BldC Oximetry 99 % BMI (Body Mass Index) 25.1 kg/m2 Results Test Acquired Date Facility Test Result H/L Range Note Surgical 02/22/2019 [facility] Surgical SEE RESULT [address] [place] [address] [phone] PDFReport SEE IMAGE Stool Occult 02/22/2019 [facility] Stool Occult SEE RESULT 2 Blood Diag [address] Blood, [place] [address] [phone] Laboratory test 02/22/2019 [facility] Clotest SEE RESULT [address] [place] [address] [phone] Lipid Profile 02/22/2019 [facility] Triglycerides 96 mg/dL 4, 5 (Trig/Chol/HDL) [address] [place] [address] [phone] Cholesterol 169 mg/dL 6 HDL Cholesterol 71.3 mg/dL 7 LDL Cholesterol 79 mg/dL 8 Liver Function 02/22/2019 [facility] Total Protein 7.4 g/dL Normal 6.4-8.[address] [place] [address] [phone] Albumin 4.2 g/dL Normal 3.2-5.2 Globulin 3.2 g/dL Normal 2-4 Albumin/Globulin Ratio 1.3 Normal 1-3 Total Bilirubin 0.40 mg/dL Normal 0.2-1.0 Direct Bilirubin 0.10 mg/dL Normal 0.03-0.18 Indirect Bilirubin 0.3 mg/dL Normal 0.3-1.0 Alkaline Phosphatase 118 U/L High 34-104 Alt 17 U/L Normal 7-52 Ast 17 U/L Normal 13-39 CBC Auto 02/08/2019 [facility] White Blood 6.8 10^3/uL Normal 3.5-10.8 [address] [place] [address] [phone] Red Blood Count 5.32 10^6/uL High 3.70-4.87 [...] % 0.1 Iron & Iron Binding 02/08/2019 [facility] Iron 73 g/dL Normal 50-212 [address] [place] [address] [phone] Unsaturated Iron Binding < 292 g/dL Total Iron Binding Capacity 307 g/dL Normal 250-450 Transferrin 219 mg/dL Normal 203-362 % Iron Saturation 24 % Normal 15-55 Laboratory test 02/08/2019 [facility] Ferritin 17.9 ng/mL Normal 11-307 10 [address] [place], [place] [address] [phone] Vitamin B12 1039 pg/mL High 180-914 11 Urine Culture And 01/20/2019 [facility] Urine Culture SEE RESULT [address] [place] [place], [place] [address] [phone] Urinalysis Profile 01/20/2019 [facility] Urine Color Straw [address] [place] [address] [phone] Urine Appearance Clear Urine Specific [place] 1.002 Low 1.010-1.030 Urine pH 6.0 Normal [...] Cryst Present Abnormal Absent Laboratory test 01/20/2019 [facility] Lipase 30 U/L Normal 11.0-82.[address] [place] [address] [phone] C Reactive Protein 4.41 mg/L Normal <8.01 Troponin-I (TnI) 0.00 ng/mL <0.04 13 TSH (Thyroid Stim Horm) 1.29 mcIU/mL Normal 0.34-5.60 Comp Metabolic 01/20/2019 [facility] Sodium 140 mmol/L Normal 135-[address] [place] [address] [phone] Potassium 3.9 mmol/L Normal 3.5-5.0 Chloride 108 [...] Egfr Non- 81.6 >60 Egfr 98.7 >60 14 CBC Auto 01/20/2019 [facility] White Blood 6.3 10^3/uL Normal 3.5-10.[address] [place] [address] [phone] Red Blood Count 5.00 10^6/uL High 3.70-4.87 Hemoglobin 11.0 g/dL Low 12.0-16.0 Hematocrit 35 % Normal 35-47 Mean Corpuscular Volume 70 fL Low 80-97 15 Mean Corpuscular Hemoglobin 22 pg Low 27-31 [...] Red Blood Cells % 0.1 Laboratory 01/09/2019 [facility] D Dimer < 200 Normal Less 16 test finding [address] Quantitative ng/[place] [address] [phone] Lipid Profile 01/09/2019 [facility] Triglycerides 86 mg/dL 17 (Trig/Chol/HDL [address] ) [place], [place] [address] [phone] Cholesterol 208 mg/dL 18 HDL Cholesterol 71.9 mg/dL 19 LDL Cholesterol 119 mg/dL 20 Laboratory test 01/09/2019 [facility] Hemoglobin A1c 5.7 % High 4.0-5.6 [address] (Glyco HGB) [place], [place] [address] [phone] Inr/Protime 01/09/2019 [facility] Inr 1.01 Normal 0.82-1.[address] [place], [place] [address] [phone] CBC Auto Diff 01/09/2019 [facility] White Blood 4.8 Normal 3.5 -10.[address] Count 10^3/uL [place], [place] [address] [phone] Red Blood Count 5.00 10^6/uL High 3.70-4.87 Hemoglobin 11.0 g/dL Low 12.0-16.0 Hematocrit 35 % Normal 35-47 Mean Corpuscular Volume 70 fL Low 80-97 23 Mean Corpuscular Hemoglobin 22 pg Low 27-31 [...] Blood Cells % 0.0 Laboratory test 01/09/2019 [facility] Troponin-I 0.00 <0.04 [address] (TnI) ng/mL [place], [place] [address] [phone] Comp Metabolic 01/09/2019 [facility] Sodium 140 Normal 135- [address] mmol/[place] [address] [phone] Potassium 3.7 mmol/L Normal 3.5-5.0 Chloride 106 [...] Egfr Non- 70.2 >60 Egfr 84.9 >60 25 Laboratory 01/09/2019 [facility] Troponin-I (TnI) 0.01 <0.04 26 test finding [address] ng/[place] [address] [phone] Laboratory 01/09/2019 [facility] Troponin-I (TnI) 0.01 <0.04 27 test finding [address] ng/[place] [address] [phone] Laboratory 11/21/2018 [facility] D Dimer < 200 Normal Less 28 test finding [address] Quantitative ng/mL [address] [place] [address] [phone] Laboratory 11/21/2018 [facility] Troponin-I (TnI) 0.01 <0.04 29 test finding [address] ng/mL [place], [place] [address] [phone] CBC Auto Diff 11/21/2018 [facility] White Blood 6.6 Normal 3.5 -10.[address] Count 10^3/[place] [address] [phone] Red Blood Count 5.10 10^6/uL High 3.70-4.87 [...] Blood Cells % 0.0 Comp Metabolic 11/21/2018 [facility] Sodium 141 mmol/L Normal 135-[address] [place] [address] [phone] Potassium 3.5 mmol/L Normal 3.5-5.0 Chloride 108 [...] Egfr Non- 64.7 >60 Egfr 78.3 >60 30 Laboratory test 11/21/2018 [facility] Troponin-I (TnI) 0.00 ng/ mL <0.04 [address] [place] [address] [phone] Lipase 16 U/L Normal 11.0-82.0 CBC Auto 11/20/2018 [facility] White Blood 5.1 10^3/uL Normal 3.5-10.[address] [place] [address] [phone] Red Blood Count 4.96 10^6/uL High 3.70-4.87 [...] Blood Cells % 0.1 Comp Metabolic 11/20/2018 [facility] Sodium 140 mmol/L Normal 135-[address] [place] [address] [phone] Potassium 3.7 mmol/L Normal 3.5-5.0 Chloride 109 [...] Egfr Non- 64.7 >60 Egfr 78.3 >60 33 Laboratory test 11/20/2018 [facility] Troponin-I (TnI) 0.01 < 0.[address] ng/[place] [address] [phone] Lipid Profile 11/16/2018 [facility] Triglycerides 113 mg/dL 35, 36 (Trig/Chol/HDL) [address] [place] [address] [phone] Cholesterol 236 mg/dL 37 HDL Cholesterol 84.9 mg/dL 38 LDL Cholesterol 129 mg/dL 39 Hepatitis C Antibody 11/16/2018 [facility] HCV Index 0.06 s/c [address] [place] [address] [phone] Hepatitis C Antibody Negative Negative 1 SEE RESULT BELOW Name: RENEE LINDSAY : [address]: Jose Abarca MD Acct: [id number] Unit: [id number] AGE: 63 Location: ENDO Re02/22/19 SEX: F Status: DEP REF SPEC: [id number] LADI: 02/22/19- [facility] DR: Jose Abarca MD REQ: [id number] RECD: 02/22/19-1320 STATUS: ABIGAIL GOMEZ DR: Lorraine Vargas MD [...] 1535 END OF REPORT DEPARTMENT OF PATHOLOGY, [address] [place] [address] Rob Kim M.D. Director [facility] # [id number] 2 SEE RESULT BELOW Name: NEFTALISHIRA : [address]: Jose Abarca MD Acct: [id number] Unit: [id number] AGE: 63 Location: ENDO Re02/22/19 SEX: F Status: REG REF SPEC: [id number] LADI: 02/22/19-[address] [facility] [address]: Jose Abarca MD REQ: [id number] RECD: 02/22/198455 STATUS: SADIA GOMEZ DR: Fatou Coker HORSESHOER _ SOURCE: STOOL SPDESC: ORDERED: Occult Bl, Diag Procedure Result Reported Site Stool Occult Blood (1) Final 02/22/19- 1405 ML Stool Occult Blood Negative Collection Date (1) 02/22/19 * ML - Main Lab . END OF REPORT DEPARTMENT OF PATHOLOGY, [address] [place] [address] Rob Kim M.D. Director [facility] # [id number] 3 SEE RESULT BELOW Name: RENEE LINDSAY : [address]: Jose Abarca MD Acct: [id number] Unit: [id number] AGE: 63 Location: ENDO Re02/22/19 SEX: F Status: REG REF SPEC: [id number] LADI: 02/22/19-[address]: Jose Abarca MD REQ: [id number] RECD: 02/22/191231 STATUS: SADIA GOMEZ DR: Fatou Coker HORSESHOER _ SOURCE: RAHEEM ANTRUM SPDES: ORDERED: Clotest Procedure Result Reported Site Clotest Final 02/23/19- 0754 ML Clotest Negative * ML - Main Lab . END OF REPORT DEPARTMENT OF PATHOLOGY, [address] [place] [address] Rob Kim M.D. Director [facility] # [id number] 4 [id number] 5 Desirable: <150 Borderline High: 150-199 High: 200-499 Very High: >500 6 Desirable: <200 Borderline High: 200-239 High: >239 7 Low: <40 Desirable: 40-60 High: >60 8 Desirable: <100 Near Optimal: 100-129 Borderline High: 130-159 High: 160-189 Very High: >189 9 [id number] 10 [id number] Normal Range 180 to 914 Indeterminate Range 145 to 180 Deficient Range <145 12 SEE RESULT BELOW Name: RENEE LINDSAY : [address]: Chalino Nazario MD Acct: [id number] Unit: [id number] AGE: 63 Location: ED Re01/20/19 SEX: F Status: DEP ER SPEC: [id number] LADI: 01/20/[address]: Beto MONK REQ: [id number] RECD: 01/20/19 STATUS:COMP JUAN DAVIDHR DR: Fatou Nazario MD _ SOURCE: URINE SPDESC: ORDERED: Urine Culture Procedure Result Reported Site Urine Culture Final 01/22/19- 935 ML Mixed christiano; possible contamination. Suggest resubmission. * ML - Main Lab . END OF REPORT DEPARTMENT OF PATHOLOGY, [address] [place] [address] Rob Kim M.D. Director [facility] # [id number] 13 Troponin-I testing on Plasma Separator Tubes (PST) has a known false positive rate of 0.20-0.40%. All positive troponins reflex immediately to secondary confirmatory testing. Using the [employer] DxI 800 Access Immunoassay systems, the 99th percentile upper reference limit was demonstrated to be < 0.03 ng/mL. 14 Because ethnic data is not always [...] 5 Kidney failure <15 (or dialysis) 15 Consistent with Previous Results Reported on 01/10/2019. 16 Please note: The following may produce a false positive D Dimer test: - Rheumatoid factor greater than 60 IU/ml - Plasma hemoglobin greater than 0.05 gm/dl - Bilirubin greater than 50 mg/dl - Lipids greater than 1000 mg/dl - FDP greater than 20 ug/ml 17 Desirable: <150 Borderline High: 150-199 High: 200-499 Very High: >500 18 Desirable: <200 Borderline High: 200-239 High: >239 19 Low: <40 Desirable: 40-60 High: >60 20 Desirable: <100 Near Optimal: 100-129 Borderline High: 130-159 High: 160-189 Very High: >189 21 Therapeutic target for the treatment of diabetes mellitus patients is <7% HBA1C, and in selective patients <6.0%. Please refer to [place] [employer] diabetic care guidelines for further information. 22 Standard intensity warfarin therapeutic range: 2.0-3.0 High intensity warfarin therapeutic range: 2.5-3.5 23 Consistent with Previous Results Reported on 11/21/18 24 Troponin-I testing on Plasma Separator Tubes (PST) has a known false positive rate of 0.20-0.40%. All positive troponins reflex immediately to secondary confirmatory testing. Using the [employer] DxI 800 Access Immunoassay systems, the 99th percentile upper reference limit was demonstrated to be < 0.03 ng/mL. 25 Because ethnic data is not always readily [...] 15-29 5 Kidney failure <15 (or dialysis) 26 Troponin-I testing on Plasma Separator Tubes (PST) has a known false positive rate of 0.20-0.40%. All positive troponins reflex immediately to secondary confirmatory testing. Using the [employer] DxI 800 Access Immunoassay systems, the 99th percentile upper reference limit was demonstrated to be < 0.03 ng/mL. 27 Troponin-I testing on Plasma Separator Tubes (PST) has a known false positive rate of 0.20-0.40%. All positive troponins reflex immediately to secondary confirmatory testing. Using the [employer] DxI 800 Access Immunoassay systems, the 99th percentile upper reference limit was demonstrated to be < 0.03 ng/mL. 28 Please note: The following may produce a false positive D Dimer test: - Rheumatoid factor greater than 60 IU/ml - Plasma hemoglobin greater than 0.05 gm/dl - Bilirubin greater than 50 mg/dl - Lipids greater than 1000 mg/dl - FDP greater than 20 ug/ml 29 Troponin-I testing on Plasma Separator Tubes (PST) has a known false positive rate of 0.20-0.40%. All positive troponins reflex immediately to secondary confirmatory testing. Using the [employer] DxI 800 Access Immunoassay systems, the 99th percentile upper reference limit was demonstrated to be < 0.03 ng/mL. 30 Because ethnic data is not always readily [...] 15-29 5 Kidney failure <15 (or dialysis) 31 Troponin-I testing on Plasma Separator Tubes (PST) has a known false positive rate of 0.20-0.40%. All positive troponins reflex immediately to secondary confirmatory testing. Using the [employer] DxI 800 Access Immunoassay systems, the 99th percentile upper reference limit was demonstrated to be < 0.03 ng/mL. 32 Consistent with Previous Results Reported on 08/17/18 33 Because ethnic data is not always readily [...] 15-29 5 Kidney failure <15 (or dialysis) 34 Troponin-I testing on Plasma Separator Tubes (PST) has a known false positive rate of 0.20-0.40%. All positive troponins reflex immediately to secondary confirmatory testing. Using the [employer] DxI 800 Access Immunoassay systems, the 99th percentile upper reference limit was demonstrated to be < 0.03 ng/mL. 35 [id number] 36 Desirable: <150 Borderline High: 150-199 High: 200-499 Very High: >500 37 Desirable: <200 Borderline High: 200-239 High: >239 38 Low: <40 Desirable: 40-60 High: >60 39 Desirable: <100 Near Optimal: 100-129 Borderline High: 130-159 High: 160-189 Very High: >189 Procedures Date Code Description Status 04/05/2019 81210 Pessary Fitting & Insertion Completed 03/24/2019 47211 Pessary Fitting & Insertion Completed 03/17/2019 [id number] Mammogram Completed 02/22/2019 62986 Endoscopy Upper GI Biopsy Completed 01/10/2019 30964 ECHO Transthorasic Realtime 2D W Doppler & Color Flow Completed Hosp 01/10/2019 47056 Treadmill Interp/Report Only Completed 01/10/2019 59201 Stress Test Supervsn W/Out I/R Completed 01/09/2019 16865 EKG, Interpretation Only Completed 11/23/2018 51281 Stress Test Completed 07/28/2016 [id number] Mammogram Completed 09/20/2015 [id number] Colonoscopy Completed 07/26/2015 [id number] Mammogram Completed 02/25/2011 056010044 Bone Mineral Density Test Completed 02/25/2011 13759269 Mammogram Completed 11/28/2008 01606144 Mammogram Completed 06/22/2007 [id number] Mammogram Completed Medical Devices Description No Information Available Encounters Type Date Location Provider Dx Diagnosis [facility], R32 Unspecified urinary 10:30a Clinic [facility] GERONTOLOGY AIDE-Cde incontinence N81.2 Incomplete uterovaginal prolapse Office Visit 03/24/2019 1:30p [facility] Caryn Antunez, R32 Unspecified urinary [facility] GERONTOLOGY AIDE-Cde incontinence N95.2 Postmenopausal atrophic vaginitis N81.10 Cystocele, unspecified Office 03/21/2019 [facility] Fatou E78.00 Pure hypercholesterolemia, Visit 10:40a Medicine - Varn, N.P. unspecified Ccmob R14.0 Abdominal distension (gaseous) R32 Unspecified urinary incontinence Office Visit 02/23/2019 11:00a [facility] Internal Fatou Varn, R32 Unspecified urinary Medicine - Ccmob N.P. incontinence R10.84 Generalized abdominal pain Office Visit 02/01/2019 [facility] Gastroenterology Buffy D64.9 Anemia, 3:00p Kat unspecisha [place] NP K21.9 Gastro-esophageal reflux disease without esophagitis R14.0 Abdominal distension (gaseous) Office Visit 01/17/2019 1:40p [facility] Internal Fatou Coker, R07.89 Other chest Medicine - Ccmob N.P. pain R14.0 Abdominal distension (gaseous) E78.00 Pure hypercholesterolemia, unspecified Office Visit 01/10/2019 [facility] R07.9 Chest pain, 9:39a Assoc,blanca Winter NP unspecified Hospitalists E78.5 Hyperlipidemia, unspecified D64.9 Anemia, unspecified K21.9 Gastro-esophageal reflux disease without esophagitis M13.80 Other specified arthritis, unspecified site F41.9 Anxiety disorder, unspecified G89.29 Other chronic pain Office Visit 01/09/2019 [facility] R07.9 Chest pain, 9:31a Assoc,blanca Waldrop M.D. unspecified Hospitalists E78.5 Hyperlipidemia, unspecified M15.0 Primary generalized (osteo)arthritis K21.9 Gastro-esophageal reflux disease without esophagitis Office Visit 12/22/2018 10:00a [facility] Caryn Mayeskins, N39.46 Mixed incontinence [facility] GERONTOLOGY AIDE-Cde N95.2 Postmenopausal atrophic vaginitis Office Visit 12/13/2018 11:30a [facility] Caryn Tulio, N39.46 Mixed incontinence [facility] GERONTOLOGY AIDE-Cde N95.2 Postmenopausal atrophic vaginitis Office Visit 11/25/2018 10:40a [facility] Internal Kitty Rajan, R07.89 Other chest pain Medicine - Ccmob Office Visit 11/11/2018 2:00p [facility] Caryn R32 Unspecified urinary [facility] Antunez, incontinence [facility] [place].2 Postmenopausal atrophic vaginitis Office Visit 11/09/2018 9:00a [facility] Deena Santoyo MD Z00.00 [facility]o abnormal findings R32 Unspecified urinary incontinence K59.00 Constipation, unspecified Assessments Date Code Description Provider 04/19/2019 R32 Unspecified urinary incontinence Caryn Antunez, GERONTOLOGY AIDE-Cde 04/19/2019 R63.4 Abnormal weight loss Caryn Antunez, GERONTOLOGY AIDE-Cde 04/05/2019 R32 Unspecified urinary incontinence Caryn Antunez, [facility]-Cde 04/05/2019 N81.2 Incomplete uterovaginal prolapse Caryn Antunez, [facility]-Cde 04/04/2019 K63.89 Other specified diseases of intestine Buffy [place], ALEX 04/04/2019 R71.8 Other abnormality of red blood cells Buffy France , ALEX 04/04/2019 R14.0 Abdominal distension (gaseous) Buffy France NP 03/24/2019 R32 Unspecified urinary incontinence Caryn Antunez, [facility] 03/24/2019 N95.2 Postmenopausal atrophic vaginitis Caryn Antunez, [facility] 03/24/2019 N81.10 Cystocele, unspecified Caryn Antunez, [facility] 03/21/2019 E78.00 Pure hypercholesterolemia, unspecified Fatou Varn, N.P. 03/21/2019 R14.0 Abdominal distension (gaseous) Fatou Varn, N.P. 03/21/2019 R32 Unspecified urinary incontinence Fatou Varn, N.P. 02/23/2019 R32 Unspecified urinary incontinence Fatou Varn, N.P. 02/23/2019 R10.84 Generalized abdominal pain Fatou Coker, N.P. 02/22/2019 K21.9 Gastro-esophageal reflux disease Jose Abarca MD without esophagitis 02/22/2019 R14.0 Abdominal distension (gaseous) Jose Abarca MD 02/01/2019 D64.9 Anemia, unspecified Buffy France, [facility] 02/01/2019 K21.9 Gastro-esophageal reflux disease Buffy France, [facility] without esophagitis 02/01/2019 R14.0 Abdominal distension (gaseous) Buffy France, [facility] 01/17/2019 R07.89 Other chest pain Fatou John Paul, N.P. 01/17/2019 R14.0 Abdominal distension (gaseous) Fatou Andersonn, N.P. 01/17/2019 E78.00 Pure hypercholesterolemia, unspecified Fatou Varn, N.P. 01/10/2019 R07.9 Chest pain, unspecified Riya Moy, [facility] 01/10/2019 R07.9 Chest pain, unspecified John Paul Gardner MD, [facility], [facility] [place] 01/10/2019 E78.5 Hyperlipidemia, unspecified Riya [place], [facility] 01/10/2019 R94.31 Abnormal electrocardiogram [ECG] [EKG] John Paul Gardner MD, [facility], [facility] [place] 01/10/2019 D64.9 Anemia, unspecified Riya [place], [facility] 01/10/2019 R07.9 Chest pain, unspecified Ken Sarabia M.D. 01/10/2019 K21.9 Gastro-esophageal reflux disease Riya [place], [facility] without esophagitis 01/10/2019 M13.80 Other specified arthritis, unspecified Riya [place], [facility] site 01/10/2019 F41.9 Anxiety disorder, unspecified Riya [place], [facility] 01/10/2019 G89.29 Other chronic pain Riya [place], [facility] 01/09/2019 R07.9 Chest pain, unspecified Billy Velasquez DO FAC 01/09/2019 R07.9 Chest pain, unspecified Frankie Waldrop M.D. 01/09/2019 E78.5 Hyperlipidemia, unspecified Frankie Waldrop M.D. 01/09/2019 M15.0 Primary generalized (osteo)arthritis Frankie Waldrop M.D. 01/09/2019 K21.9 Gastro-esophageal reflux disease Frankie Waldrop M.D. without esophagitis 12/22/2018 N39.46 Mixed incontinence Caryn Antunez, [facility] 12/22/2018 N95.2 Postmenopausal atrophic vaginitis Caryn Antunez, [facility] 12/13/2018 N39.46 Mixed incontinence Caryn Antunez, [facility] 12/13/2018 N95.2 Postmenopausal atrophic vaginitis Caryn Antunez, [facility] 11/25/2018 R07.89 Other chest pain Kitty Rajan MD 11/23/2018 R07.89 Other chest pain Brianda Vance M.D. 11/23/2018 R07.89 Other chest pain Fatou Coker N.P. 11/11/2018 R32 Unspecified urinary incontinence Caryn Antunez, [facility] 11/11/2018 N95.2 Postmenopausal atrophic vaginitis Caryn Antunez, [facility] 11/09/2018 Z00.00 Encounter for general adult medical Deena Santoyo MD examination without abnormal findings 11/09/2018 R32 Unspecified urinary incontinence Deena Santoyo MD 11/09/2018 K59.00 Constipation, unspecified Deena Santoyo MD Plan of Treatment Future Appointment(s):07/19/2019 10:30 am - [facility]07/04/2019 10:10 am - Buffy France NP at [facility]56/13/2020 1:40 pm - Fatou Coker N.P. at [facility] - [facility]04/19/2019 - Riaz Kent32 Unspecified urinary incontinenceFollow up:3 months for pessary [id number] Abnormal weight loss Functional Status Description No Information Available Mental Status Description No Information Available Referrals Refer to Reason for Referral Status Appt Date Buffy France NP Patient with chest pain - had a full cardiac Sent 2018 evaluation that was negative. She has a lot of bloating, gas and issues with constipation and diarrhea. Referred for evaluation [address] [place] [address] [phone] Abby Sotomayor MD Patient with cystocele causing urinary Sent 02/01/2019 incontinence, she is not interested or able to undergo pelvic floor PT. Already on oxybutynin [address] [place] [address] [phone]
[2019-06-07 17:57] VITALS: BP 124/78
== END 2019-06-07 18:05 | disposition home or self-care (01) ==
LOC: ED 16:51
DX: R30.0 Dysuria (principal); R35.0 Frequency of micturition; E78.00 Pure hypercholesterolemia, unspecified; K21.9 Gastro-esophageal reflux disease without esophagitis; K58.9 Irritable bowel syndrome, unspecified; F20.9 Schizophrenia, unspecified; D64.9 Anemia, unspecified; F41.9 Anxiety disorder, unspecified; F32.9 Major depressive disorder, single episode, unspecified; Z87.891 Personal history of nicotine dependence; Z79.899 Other long term (current) drug therapy; Z88.2 Allergy status to sulfonamides
CPT/HCPCS: 36415; 80053; 81003; 83690; 85025; 99282

== ENCOUNTER → 2019-07-04 12:22 | Emergency (ER) | payer OTHER ==
[2019-07-04 13:46] VITALS: BP 132/74
--- NOTE | 2019-07-04 14:05 | ED ---
Skin Complaint - HPI Summary HPI Summary: Pt. is a 63 y.o female who presents to the ER for itching skin x several days. Pt. resides at [place]. Pt. states the air is very dry at [place] and she believes it is making her skin dry. She states she has tried lotion without relief. Denies any new medications or exposures. Denies fever, cp, sob, abd. pain. Sxs are mild in severity. No current modifying factors. - History of Current Complaint Chief Complaint: EDRashSkinAbscess Time Seen by Provider: 07/04/19 12:23 Stated Complaint: RASH PER EMS Hx Obtained From: Patient Pain Intensity: 0 Pain Scale Used: 0-10 Numeric - Additional Pertinent History Primary Care Physician: SURAJ - Allergy/Home Medications Allergies/Adverse Reactions: Allergies Allergy/AdvReac Type Severity Reaction Status Date / Time Sulfa (Sulfonamide Allergy Vomiting Verified 02/22/19 14:10 Antibiotics) ENVIRONMENTAL Allergy SINUS Uncoded 02/22/19 14:10 SYMPTOMS Home Medications: Home Medications Gabapentin CAP(*) [Neurontin 300 CAP(*)] 200 mg PO BEDTIME 05/02/15 [History Confirmed 07/04/19] Pantoprazole TAB * [Protonix TAB*] 40 mg PO DAILY 05/02/15 [History Confirmed ] Cetirizine* [ZyrTEC 10 MG TAB*] 10 mg PO BEDTIME PRN 10/22/15 [History Confirmed 07/04/19] Mirtazapine TAB* [Remeron TAB*] 15 mg PO DAILY 02/27/16 [History Confirmed 07/03] celeCOXIB CAP* [Celebrex CAP*] 100 mg PO BID 05/12/16 [History Confirmed ] Loperamide CAP* [Imodium CAP*] 2 mg PO DAILY PRN MDD 8 tabs 05/17/17 [History Confirmed 07/04/19] Mag Hydrox/Aluminum Hyd/Simeth [Maalox Maximum Strength Susp] 10 ml PO Q4H PRN 05/17/17 [History Confirmed 07/04/19] Acetaminophen TAB* [Tylenol TAB*] 650 mg PO Q4H PRN 07/01/18 [History Confirmed 07/04/19] Multivit-Min/Iron/Folic/Lutein [Centrum Silver Women Tablet] 1 tab PO DAILY [History Confirmed 07/04/19] Polyethylene Glycol 3350 [Miralax] 17 gm PO DAILY PRN 01/09/19 [History Confirmed 07/04/19] Docusate CAP* [Colace Cap*] 100 mg PO BID PRN 01/20/19 [History Confirmed ] Lactulose* 15 ml PO DAILY PRN 01/20/19 [History Confirmed 07/04/19] Ondansetron ODT TAB* [Zofran 4 MG Odt TAB*] 4 mg PO .Q6-8H PRN 01/20/19 [ History Confirmed 07/04/19] Simethicone TAB* [Mylicon TAB*] 125 mg PO QID 01/20/19 [History Confirmed ] clonazePAM TAB(*) [KlonoPIN TAB(*)] 0.5 mg PO BID PRN MDD 2 tabs 01/20/19 [ History Confirmed 07/04/19] Atorvastatin* [Lipitor*] 20 mg PO DAILY 02/08/19 [History Confirmed 07/04/19] Lurasidone(*) [Latuda] 40 mg PO BEDTIME 02/08/19 [History Confirmed 07/04/19] Calcium Polycarbophil TAB* [Fibercon TAB*] 625 mg PO DAILY 07/04/19 [History Confirmed 07/04/19] Famotidine TAB* [Pepcid 20 MG TAB*] 20 mg PO BID 07/04/19 [History Confirmed ] Ibguard 1 cap PO TID 07/04/19 [History Confirmed 07/04/19] Meclizine TAB* [Antivert 12.5 TAB*] 25 mg PO Q8H PRN 07/04/19 [History Confirmed 07/04/19] Oxybutynin TAB* [Ditropan TAB*] 5 mg PO DAILY 07/04/19 [History Confirmed ] PMH/Surg Hx/FS Hx/Imm Hx Previously Healthy: Yes Endocrine/Hematology History: Reports: Hx Anemia Denies: Hx Diabetes Cardiovascular History: Reports: Hx Angina Denies: Hx Congestive Heart Failure, Hx Coronary Artery Disease, Hx Hypercholesterolemia, Hx Hypertension, Hx Myocardial Infarction, Hx Pacemaker/ ICD, Hx Valvular Heart Disease Respiratory History: Denies: Hx Asthma, Hx Chronic Obstructive Pulmonary Disease (COPD) GI History: Reports: Hx Gastroesophageal Reflux Disease, Hx Ulcer, Other GI Disorders - GASTRITIS- TAKES MAALOX FOR GASTRITIS History: Denies: Hx Chronic Renal Failure, Hx Renal Disease Musculoskeletal History: Reports: Hx Arthritis - HANDS AND FEET Sensory History: Reports: Hx Contacts or Glasses - GLASSES Denies: Hx Hearing Aid Opthamlomology History: Reports: Hx Contacts or Glasses - GLASSES Neurological History: Denies: Hx CVA Psychiatric History: Reports: Hx Anxiety, Hx Depression, Hx Schizophrenia Denies: Hx Eating Disorder, Hx Panic Disorder - Cancer History Cancer Type, Location and Year: [facility] CONCERNED BUT BIOPSY NEGATIVE,PER PT. Hx Chemotherapy: No Hx Radiation Therapy: No - Surgical History Surgery Procedure, Year, and Place: biopsy on breast-DR. DIAZ'S OFFICE, [facility]- [facility] [place] Hx Anesthesia Reactions: No - Immunization History Date of Tetanus Vaccine: unknown Date of Influenza Vaccine: unknown Infectious Disease History: No Infectious Disease History: Denies: History Other Infectious Disease, Traveled Outside the [place] in Last 30 Days - Family History Known Family History: Positive: Seizure Disorder, Other - Sister has CA. Negative: Cardiac Disease, Hypertension, Diabetes Family History: Bipolar, schizophrenia, depression - Social History Occupation: Retired [facility] Alcohol Use: None Hx Substance Use: No Substance Use Type: Reports: None Hx Tobacco Use: Yes Smoking Status (MU): Former Smoker Amount Used/How Often: 4-5 CIGARETTES PER DAY X UNKNOWN AMOUNT OF YEARS Have You Smoked in the Last Year: No Review of Systems Cardiovascular: Negative Respiratory: Negative Gastrointestinal: Negative Negative: Abdominal Pain Positive: Other - dry, itchy skin All Other Systems Reviewed And Are Negative: Yes Physical Exam Triage Information Reviewed: Yes Vital Signs On Initial Exam: Initial Vitals Temp Pulse Resp BP Pulse Ox 98.4 F 92 18 154/84 100 07/04/19 12:25 07/04/19 12:25 07/04/19 12:25 07/04/19 12:25 07/04/19 12:25 Vital Signs Reviewed: Yes Appearance: Positive: Well-Appearing - Pt. lying in bed in NAD. Skin: Positive: Warm, Dry, Other - Skin appears dry throughout with rash, erythema, blisters, urticaria.. Negative: Jaundiced Head/Face: Positive: Normal Head/Face Inspection Eyes: Positive: Normal, EOMI, Conjunctiva Clear, Other: - No icterus. Neck: Positive: Supple Abdomen Description: Positive: Nontender, Soft Neurological: Positive: Normal, CN Intact II-III Psychiatric: Positive: Affect/Mood Appropriate Procedures - Sedation Patient Received Moderate/Deep Sedation with Procedure: No Diagnostics - Vital Signs Vital Signs Temp Pulse Resp BP Pulse Ox 07/04/19 13:46 98.4 F 70 17 132/74 99 07/04/19 13:28 66 17 132/74 99 07/04/19 13:00 81 21 100 07/04/19 12:58 85 21 131/80 100 07/04/19 12:32 74 99 07/04/19 12:28 78 154/84 100 07/04/19 12:25 98.4 F 92 18 154/84 100 - Laboratory Lab Statement: Any lab studies that have been ordered have been reviewed, and results considered in the medical decision making process. Course/Dx - Course Course Of Treatment: pt. with complaints of dry, itchy skin. Exam otherwise unremarkable. Recommmend OTC hydrating lotions, avoid hot showers. To f.u with pcp and return to er if sxs change or worsen. - Differential Diagnoses - Skin Complaint Differential Diagnoses: Cellulitis, Contact Dermatitis, Eczema - Diagnoses Provider Diagnoses: Dry skin, Itchy skin - Critical Care Time Critical Care Statement: Critical care time is provided exclusive of any time spent performing procedures. Discharge ED - Sign-Out/Discharge Documenting (check all that apply): Patient Departure - Discharge Plan Condition: Good Disposition: HOME Patient Education Materials: Itchy Skin (ED) Referrals: Fatou Coker NP [Primary Care Provider] - Additional Instructions: Follow up with PCP within one week for recheck Continue home medications as directed Apply moisturizing lotion such as eucerin Avoid hot showers Return to ER if symptoms change or worsen - Billing Disposition and Condition Condition: GOOD Disposition: Home - Attestation Statements Provider Attestation: I was available for consultation for this patient. I did not evaluate the patient or participate in any medical decision making or disposition decisions unless I am specifically named in the chart as having consulted on the patient. If I have consulted on the patient, please see my own ED note on the patient encounter. Suzan Calixto MD
[2019-07-04 15:06] LABS: Hepatitis C Antibody Negative (Negative)
== END | disposition home or self-care (01) ==
LOC: ED 12:22
DX: L85.3 Xerosis cutis (principal); R21 Rash and other nonspecific skin eruption; K21.9 Gastro-esophageal reflux disease without esophagitis; R41.9 Unspecified symptoms and signs involving cognitive functions and awareness; F32.9 Major depressive disorder, single episode, unspecified; Z79.899 Other long term (current) drug therapy; Z87.891 Personal history of nicotine dependence; Z88.2 Allergy status to sulfonamides
CPT/HCPCS: 36415; 86803; 99283